=== PATIENT | female | born 1945 | race Caucasian/White ===

== ENCOUNTER 2020-03-09 05:04 | Observation (INO) ==
--- NOTE | 2020-02-08 15:59 | PAT Medication Instructions ---
Medication Instructions Date of Service February 08, 2020 Home Medications Metamucil 1 tbsp PO QAM Sooth Eye Drops 1 dose OPHTHALMIC (EYE) BID acetaminophen [Tylenol Extra Strength] 500 mg PO Q6H PRN duloxetine 30 mg PO QAM levothyroxine [Synthroid] 50 mcg PO QAM metoprolol tartrate 12.5 mg PO BID pantoprazole 40 mg PO QAM sodium chloride [Selina 128] 0.25 inch OPHTHALMIC (EYE) HS atorvastatin 10 mg PO QAM chlorthalidone 25 mg PO QAM fluoxetine 10 mg PO QAM valsartan 80 mg PO QAM DO NOT take the morning of surgery Metamucil 1 tbsp PO QAM chlorthalidone 25 mg PO QAM valsartan 80 mg PO QAM Take morning of surgery With a small sip of water, OTHERWISE NOTHING TO EAT OR DRINK AFTER MIDNIGHT: Sooth Eye Drops 1 dose OPHTHALMIC (EYE) BID acetaminophen [Tylenol Extra Strength] 500 mg PO Q6H PRN (okay to take up to 4 hours prior to surgery if needed) duloxetine 30 mg PO QAM levothyroxine [Synthroid] 50 mcg PO QAM metoprolol tartrate 12.5 mg PO BID pantoprazole 40 mg PO QAM atorvastatin 10 mg PO QAM fluoxetine 10 mg PO QAM Take evening before surgery Sooth Eye Drops 1 dose OPHTHALMIC (EYE) BID acetaminophen [Tylenol Extra Strength] 500 mg PO Q6H PRN (if needed) metoprolol tartrate 12.5 mg PO BID sodium chloride [Selina 128] 0.25 inch OPHTHALMIC (EYE) HS Other Notes If you have any questions please call us at [phone] or [phone] or [phone] or [phone]
--- NOTE | 2020-02-09 10:57 | Anesthesiology Consultation ---
Date of Service February 09, 2020 Assessment & Plan (1) Encounter for pre-operative examination: COVID Status: As of 02/07 assessment, patient denies travel to endemic area, known exposure/sick contacts, or symptoms of COVID19. Patient instructed that they and their household members must follow strict social distancing guidelines, wear a mask in public and avoid travel for 14 days prior to surgery. Preoperative COVID19 testing to be completed prior to surgery per surgeon's a rrangements. Patient made aware to self-isolate as much as possible between COVID testing and surgery. She has been tested for COVID-19 preoperatively for her recent cataract surgery and was also tested this morning, 02/08 for her upcoming cataract to be done at [facility] on 02/13. PATIENT REPORTS H/O LARYNGEAL EDEMA POST OP -- INITIALLY IN 1970s AFTER CHOLECYSTECTOMY, BUT SHE REPORTS A FEW "MINOR" EPISODES WITH OTHER SURGERIES, STATING SHE WAS GIVEN 'VISTARIL AND SOMETHING ELSE.' Per patient, also e xperienced episodes of SOB when working with PT after lumbar fusion in 04/2018, but does not describe throat swelling, and records from that hospitalization do not indicate there were any issues with her airway. Per anesthesia consult prior to that surgery from Marleen White PA-C, "Inguinofemoral lymphadenectomy= 04/26/17= LMA 4, attempts x 1, atraumatic; no anesthetic complications noted (done at [facility]; anesthesia records added to chart)." S/P L3-L5 DECOMP/FUSION 04/30/18 -- MAC 3, ETT 7.0, GV I-II. Chart Review Chart Review: Acceptable Risk for Surgery (pending surgeon ordered PCP and cardio clearances) and Patient seen in Pre Admission Testing Teaching & Discussion Instructed NPO after midnight before surgery, except medications with 15 cc of water. Medication instructions provided according to the PAT guidelines. History Surgery Operation Date: 03/09/20 14:30 Proposed Procedures p Left Total Knee Arthroplasty - Ridge Lewis MD Height/Weight Height: 5 ft 5 in Weight: 83.7 kg Allergies Allergy/AdvReac Type Severity Reaction Status Date / Time clemastine [From Tavist] Allergy Rash Verified 02/04/20 08:30 piroxicam [From Feldene] Allergy Rash Verified 02/04/20 08:30 pseudoephedrine [From Tavist] Allergy Rash Verified 02/04/20 08:30 Medications Home Medications Medication Instructions Recorded Confirmed Last Taken Metamucil 1 tbsp PO QAM 04/14/18 02/04/20 01/31/20 Sooth Eye Drops 1 dose OPHTHALMIC (EYE) BID 04/14/18 02/04/20 01/31/20 acetaminophen [Tylenol Extra 500 mg PO Q6H PRN 04/14/18 02/04/20 01/31/20 Strength] duloxetine 30 mg PO QAM 04/14/18 02/04/20 01/31/20 levothyroxine [Synthroid] 50 mcg PO QAM 04/14/18 02/04/20 02/01/20 07:00 metoprolol tartrate 12.5 mg PO BID 04/14/18 02/04/20 02/01/20 07:00 pantoprazole 40 mg PO QAM 04/14/18 02/04/20 01/31/20 sodium chloride [Selina 128] 0.25 inch OPHTHALMIC (EYE) HS 04/14/18 02/04/20 01/31/20 atorvastatin 10 mg PO QAM 04/30/18 02/04/20 01/31/20 chlorthalidone 25 mg PO QAM 01/25/20 02/04/20 01/31/20 fluoxetine 10 mg PO QAM 01/25/20 02/04/20 01/31/20 valsartan 80 mg PO QAM 01/25/20 02/04/20 02/01/20 07:00 Past Medical History Medical History (Updated 02/09/20 @ 16:20 by Jak Turner) CAD (coronary artery disease) Per [facility] cardiology 2018, "Possible coronary artery disease: There was a subtle small RCA regional wall motion abnormality on her echo. Because of this we have made the joint decision to add low-dose atorvastatin to her medical regimen." Cardiomyopathy 2/2 chemotherapy, resolved, EF normal on 2018 echo. 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 with 1 FOS) Past Family History Family History Father Stroke Hypertension Mother Diabetes Stroke Congestive heart failure Past Surgical History Surgical History (Updated 02/04/20 @ 09:06 by Brittany Laughlin, RN) Fusion of spine L2-4 H/O repair of right rotator cuff History of appendectomy History of bladder surgery A AND P REPAIR History of carpal tunnel release of both wrists History of cataract surgery 01/2020 AND SECOND EYE 02/15/2020-[facility] History of cholecystectomy History of colonoscopy with polypectomy History of esophagogastroduodenoscopy (EGD) History of ovarian cystectomy History of total abdominal hysterectomy and bilateral salpingo-oophorectomy History of vascular access device SUBSEQUENT REMOVAL Laryngeal edema X 6-8/ LAST ONE WITH FUSION 2017 [facility] PER PT AND SLOW TO WAKE UP Past Anesthesia History No Family Hx of Anesthesia Complications and Other PATIENT REPORTS H/O LARYNGEAL EDEMA POST OP -- INITIALLY IN 1970s AFTER CHOLECYSTECTOMY, BUT SHE REPORTS A FEW "MINOR" EPISODES WITH OTHER SURGERIES. Per patient, also experienced episodes of SOB when working with PT after lumbar fusion in 04/2018, but does not describe throat swelling, and records from that hospitalization do not indicate there were any issues with her airway. Per anesthesia consult prior to that surgery from Marleen White PA-C, "Inguino femoral lymphadenectomy= 04/26/17= LMA 4, attempts x 1, atraumatic; no anesthetic complications noted (done at [facility]; anesthesia records added to chart)." History of PONV No Hx of PONV and No Hx of Motion Sickness Social History Smoking Status: Never smoker Do You Dip or Chew Tobacco: No Hx Alcohol Use: No Hx Substance Use: No substance use type: does not use Review of Systems Pt denies any recent chest pain, shortness of breath, cough, fever, URI, or uncontrolled acid reflux. +palpitations at night/racing heart sensation Physical Exam Vital Signs BP: 133/85bpm P: 66bpm SPO2: 100% RA T: 98.4 F R: 16 ENMT Mouth: + dental restorations (many crowns); no chipped teeth and no loose teeth Thyromental Distance: > or= 3.5 Finger Breadths (3.5) Mallampati Class: II Neck normal visual inspection; neck extension not limited Respiratory normal respiratory effort Auscultation: lungs clear to auscultation bilaterally Cardiovascular Rate/Rhythm: regular rate and regular rhythm Heart Sounds: no murmur Extremities: no edema Testing Laboratory Results 02/09/20 11:10 02/09/20 11:10 PT 10.0 Seconds (9.0-12.0) 02/09/20 11:10 INR 0.9 (0.9-1.1) 02/09/20 11:10 APTT 27.1 Seconds (21.0-31.0) 02/09/20 11:10 Hemoglobin A1c 6.1 % (4.5-5.6) H 02/09/20 11:10 Urine Color Yellow 02/09/20 11:10 Urine Appearance Clear (Clear) 02/09/20 11:10 Urine pH 7.0 (4.5-7.5) 02/09/20 11:10 Ur Specific Robinson 1.009 (1.000-1.030) 02/09/20 11:10 Urine Protein Negative (Negative) 02/09/20 11:10 Urine Glucose (UA) Negative (Negative) 02/09/20 11:10 Urine Ketones Negative (Negative) 02/09/20 11:10 Urine Nitrite Negative (Negative) 02/09/20 11:10 Ur Leukocyte Esterase Negative (Negative) 02/09/20 11:10 Blood Type O Positive 02/09/20 11:10 Antibody Screen NEGATIVE 02/09/20 11:10 GFR consistent with known CKD stage III. Electrocardiogram Date: 02/09/20 Findings: + NSR @ (64bpm) and + no change from (2018) Chest X-Ray Date: 02/09/20 Findings: + NAD Echocardiogram Date: 10/10/17 EF: 60-64% Borderline concentric LVH. LV diastolic function is normal. Nondilated cardiac chambers. RV systolic function is normal. PA SP is 26 mmHg. No significant valvular disease present. Stress Test Date: 12/22/18 Resting EF: 62% The dobutamine stress echocardiographic examination is normal without resting LV wall motion abnormalities or inducible ischemia. Adequate dobutamine stress test is 96% of the age-predicted maximal target heart rate was obtained. No significant arrhythmias, normal heart rate with hypertension response to dobutamine infusion. Resting echo: EF 62%. Borderline concentric LVH. Grade 1 diastolic dysfunction. Nondilated cardiac chambers. Mild tricuspid regurgitation is present.
--- NOTE | 2020-02-09 11:58 | XRay Report ---
XR chest Pre-admission PA/Lat CLINICAL HISTORY: Preoperative evaluation. COMPARISON STUDY: No previous studies for comparison. FINDINGS: Lung volumes are normal. Lungs are clear. There is no pneumothorax or pleural effusion. Car diac size is normal. Mediastinal contours are normal. There is no evidence for pulmonary edema. Incid ental note is made of cholecystectomy clips. IMPRESSION: No acute cardiopulmonary findings. ACT 112: Negative or not required by law. Electronically signed by: Owen Henry M.D. 02/09/2020 11:57 AM
[2020-02-09 12:09] LABS: Basophils # (auto) 0.03 K/uL (0-0.2); Basophils % (auto) 0.6 %; Eosinophils # (auto) 0.11 K/uL (0-0.5); Hematocrit (blood only) 41.1 % (37-47); Hemoglobin 13.1 g/dL (12.0-16.0); Lymphocytes # (auto) 1.01 K/uL (1.2-3.4); Lymphocytes % (auto) 18.6 %; Mean Corpuscular Hemoglobin 30.9 pg (25-34); Mean Corpuscular Hgb Conc 31.9 g/dL (32-36); Mean Corpuscular Volume 96.9 fL (80-100); Mean Platelet Volume 10.8 fL (7.4-10.4); Monocytes # (auto) 0.55 K/uL (0.11-0.59); Monocytes % (auto) 10.1 %; Neutrophils # (auto) 3.72 K/uL (1.4-6.5); Neutrophils % (auto) 68.7 %; Platelet Count 209 K/uL (130-400); RDW Coefficient of Variation 13.3 % (11.5-14.5); Red Blood Count 4.24 M/uL (4.2-5.4); White Blood Count 5.42 K/uL (4.8-10.8)
[2020-02-09 12:10] LABS: Appearance Urine Clear (Clear); Bilirubin Urine Negative (Negative); Blood Urine Negative (Negative); Color Urine Yellow; Glucose Urine UA Negative (Negative); Ketones Urine Negative (Negative); Leukocyte Esterase Urine Negative (Negative); Nitrite Urine Negative (Negative); Protein Urine Negative (Negative); Specific Gravity Urine 1.009 (1.000-1.030); Urobilinogen Urine Negative (Negative)
[2020-02-09 12:20] LABS: Albumin Level 3.7 gm/dl (3.4-5.0); BUN Creatinine Ratio 14.2 (10-20); Calcium 9.8 mg/dl (8.5-10.1); Creatinine Clr Calc Pharmacy 33.6 ml/min; Est GFR (African American) 37.3; Est GFR (Non-African American) 32.1
[2020-02-09 12:24] LABS: INR 0.9 (0.9-1.1); Partial Thromboplastin Time 27.1 Seconds (21.0-31.0)
[2020-02-09 12:57] LABS: Estimated Average Glucose 128 mg/dl; Hemoglobin A1C 6.1 % (4.5-5.6)
--- NOTE | 2020-02-10 06:01 | Electrocardiogram Report ---
Test Reason : Blood Pressure : / mmHG Vent. Rate : 064 BPM Atrial Rate : 064 BPM P-R Int : 144 ms QRS Dur : 084 ms QT Int : 406 ms P-R-T Axes : 023 027 027 degrees QTc Int : 418 ms Normal sinus rhythm Normal ECG When compared with ECG of 15-APR-2018 16:24, No significant change was found Confirmed by Carl Quiroz ([id number]) on 02/10/2020 6:00:55 AM Referred By: Ridge Lewis Confirmed By:Carl Quiroz
--- NOTE | 2020-03-08 20:43 | History and Physical Report ---
DATE OF ADMISSION: 03/09/2020 CHIEF COMPLAINT: Left knee pain and instability. HISTORY OF PRESENT ILLNESS: This is a 74-year-old female patient of Dr. Lewis'mary complaining of chronic left knee pain and instability, longstanding, now progressively getting worse. The patient has failed conservative treatment including intra-articular injections, topical steroid treatment and the use of a knee wrap. The patient has increased pain with weightbearing activities and her pain does interfere with her activities of daily living. The patient has been diagnosed with end-stage osteoarthritis per clinical and radiographic exams and the patient wished to proceed with a left total knee arthroplasty. PAST MEDICAL HISTORY: Hypertension, anxiety and depression, peripheral neuropathy in her feet, hypothyroidism, osteoarthritis, spine problems, sciatica, acid reflux, obesity and a history of large B cell lymphoma. SOCIAL HISTORY: Nonsmoker and nondrinker. PAST SURGICAL HISTORY: Tonsil surgery, appendix, right rotator cuff, left plantar fascia release, bilateral carpal tunnel, bilateral cataract surgeries, gallbladder surgery and hysterectomy. FAMILY HISTORY: Noncontributory. REVIEW OF SYSTEMS: Chronic left knee pain and instability. Otherwise, denies any shortness of breath, chest pain, nausea, vomiting or any other joint complaints. MEDICATIONS: 1. Protonix 40 mg daily. 2. Selina 128/5% eye drops daily. 3. Metamucil as needed. 4. Duloxetine 60 mg daily. 5. Atorvastatin 10 mg daily. 6. Metoprolol 25 mg 1/2 tablet twice daily. 7. Chlorthalidone 25 mg daily. 8. Valsartan 80 mg daily. 9. Levothyroxine daily. ALLERGIES: INCLUDE tavist D, FELDENE, AND ALSO ADHESIVE TAPES. PHYSICAL EXAMINATION: GENERAL: Well-developed, well-nourished 74-year-old female in no acute distress. She is alert and oriented x3 and pleasant. HEENT: Normocephalic, atraumatic. Extraocular motions are intact. Pupils are equal and reactive to light. HEART: Regular rate and rhythm, no murmurs. LUNGS: Clear. ABDOMEN: Soft, nontender, bowel sounds present. EXTREMITIES: Left knee range of motion 0-125. She has 4/5 strength, valgus deformity with lateral joint line tenderness. She has a mild effusion with crepitation. Neurologically and neurovascularly intact in her left lower extremity. DIAGNOSES: Left knee end-stage osteoarthritis, hypertension, anxiety, peripheral neuropathy, hypothyroidism, osteoarthritis, spine problems, sciatica, acid reflux, obesity, history of large B cell lymphoma. PLAN: The patient was advised of her diagnosis. Indications, risks, benefits, postop course have all been reviewed. The patient wished to proceed with left total knee arthroplasty. Necessary consent forms, preoperative testing and clearances will be obtained. HOWARD
[2020-03-09] MEDS ORDERED: ceFAZolin 2000MG 2,000 MG/15 ML SYR IV SCH (06:00)
[2020-03-09] MEDS ORDERED: CeleBREX 200 MG CAP PO SCH (06:00)
[2020-03-09] MEDS ORDERED: TRANEXAMIC ACID 1,000 MG **IV Intra-op IV SCH (06:00)
[2020-03-09] MEDS ORDERED: VANCOMYCIN HCL 1,250 MG in SODIUM CHLORIDE 0.9% 250 ML IV SCH ×2 (06:00→18:00)
[2020-03-09] MEDS ORDERED: METOCLOPRAMIDE HCL 10 MG TABLET PO SCH (06:00)
[2020-03-09] MEDS ORDERED: dexAMETHasone 4 MG TAB PO SCH (06:00)
[2020-03-09] MEDS ORDERED: ACETAMINOPHEN 500 MG TAB PO SCH (06:00)
[2020-03-09] MEDS ORDERED: TRANEXAMIC ACID 1,000 MG **IV Pre-op IV SCH (06:00)
[2020-03-09] MEDS ORDERED: ROPIVACAINE 0.5% HCL/PF 150 MG, BUPIVACAINE 0.5% MPF 30 ML, EPINEPHrine 30MG/30ML (OR U... INSTIL SCH (06:00)
[2020-03-09] MEDS ORDERED: FAMOTIDINE 20 MG TAB PO SCH (06:00)
[2020-03-09] MEDS ORDERED: GABAPENTIN 300 MG CAP PO SCH (06:00)
[2020-03-09] MEDS ORDERED: LR 500ML BOLUS, THEN 15ML/HR IV SCH (06:00)
[2020-03-09] MEDS ORDERED: MIDAZOLAM HCL 1 MG/ML 2ML VIAL ONE (06:24)
[2020-03-09] MEDS ORDERED: fentaNYL citrate 100 MCG/2 ML VIAL ONE (06:24)
[2020-03-09] MEDS ORDERED: ROPIVACAINE 0.5% 5 MG/ML 30 ML VIAL ONE (06:26)
[2020-03-09] MEDS ORDERED: BUPIVACAINE 0.5 % 5 MG/1 ML PF 10ML VIAL ONE (06:26)
[2020-03-09] MEDS ORDERED: BACITRACIN INJ 50,000 UNIT VIAL ONE (06:43)
[2020-03-09] MEDS ORDERED: ORTHO JOINT ANESTHETIC ONE (06:43)
[2020-03-09] MEDS ORDERED: ONDANSETRON INJ 2 MG/ML 2 ML VIAL IV PRN ×2 (06:54→10:57)
[2020-03-09] MEDS ORDERED: ePHEDrine sulfate 50 MG/ML AMP IV PRN (06:54)
[2020-03-09] MEDS ORDERED: ATROPINE SULFATE 0.1 MG/ML 10ML SYR IV PRN (06:54)
[2020-03-09] MEDS ORDERED: HYDROmorphone INJ 2 MG/ML SYR/VIAL IV PRN (06:54)
--- NOTE | 2020-03-09 07:01 | History & Physical Bridge Note ---
Date of Service March 09, 2020 History & Physical Bridge Note I have examined the patient, reviewed the History & Physical and in the interval since the performance of the History & Physical I have noted the following changes of clinical significance: no changes noted
[2020-03-09] MEDS ORDERED: PROPOFOL IV EMULSION 10 MG/ML 20 ML VIAL IV ONE (07:29)
--- NOTE | 2020-03-09 09:18 | Post Operative Brief Note ---
Immediate Post Op Note v1 Date of Surgery March 09, 2020 Pre & Post Diagnosis Operation Date: 03/09/20 07:00 Pre-Op Diagnosis: Unilateral Primary Osteoarthritis, Left Knee Post-Op Diagnosis: Unilateral Primary Osteoarthritis, Left Knee I identified the patient and participated in the time-out.: Yes Procedure Operation Date: 03/09/20 07:00 Actual Procedures p Left Total Knee Arthroplasty(Left) - Ridge Lewis MD Surgeon Ridge Lewis MD Fleet Manager MARIA INES Powers Estimated Blood Loss 5 Findings Consistent with Post-Op Diagnosis Specimens Bone cuts Drains Hemovac Drain Anesthesia Type MAC Spinal Regional Complications none Disposition Accompanied Patient To Recovery: No Disposition: Recovery Room Overlapping Procedure I was immediately available: during the entire case.
--- NOTE | 2020-03-09 09:30 | Operative Report ---
Post Operative Report Pre & Post Diagnosis Operation Date: 03/09/20 07:00 Pre-Op Diagnosis: Unilateral Primary Osteoarthritis, Left Knee Post-Op Diagnosis: Unilateral Primary Osteoarthritis, Left Knee I identified the patient and participated in the time-out.: Yes Procedure Operation Date: 03/09/20 07:00 Actual Procedures p Left Total Knee Arthroplasty(Left) - Ridge Lewis MD Surgeon Ridge Lewis MD Water Reclamation Systems Operator MARIA INES Powers Estimated Blood Loss 5 Findings Consistent with Post-Op Diagnosis Specimens Bone cuts Drains 2 Hemovac Anesthesia Type MAC Spinal Regional Complications none Disposition Accompanied Patient To Recovery: No Disposition: Recovery Room Indications 74 female progressive osteoarthritis left knee failed conservative management. Radiographs demonstrate that she is [id number] lateral compartment on flexion views. Description of Procedure Patient was taken to the operating room placed supine on the operating table and anesthetized under spinal MAC regional anesthesia. Exam under anesthesia demonstrated some knee hyperextension and full flexion valgus knee. A pneumatic tourniquet was placed about the moderately obese thigh of the left lower extremity. The left lower extremity was prepped and draped in usual fashion. The leg was elevated exsanguinated with an Esmarch bandage and the pneumatic was raised to 325 mm mercury. An anterior incision was made across the left knee. The skin was incised longitudinally subcutaneous flaps were elevated and an incision was made through the medial retinaculum extending up into the mid third of the quadriceps tendon and extended down to the medial tibial tubercle. Intra-articular findings demonstrated patellofemoral and lateral compartment osteoarthritis grade III chondromalacia patella and grade III and IV chondromalacia lateral femoral condyle and grade III chondromalacia tibial plateau with grade 4 the posteriorior most aspect of the surface of the tibia. The knee was exposed by excising the infrapatellar fat pad, excising the meniscal remnants and anterior cruciate ligament. Any inflamed synovial tissue was resected. The fat pad over the anterior femur was resected for placement of the component in that area. The lateral synovial bands were release. The femur was exposed. The custom femoral cutting block was pinned in position. The distal femoral cutting block was applied. The distal femoral cut was made with the oscillating saw. The size 9, 4-in-1 cutting block was placed. It was noted that she had some AP ML mismatch and size of femur. The anterior and posterior chamfer cuts were made. The knee was extended and a subperiosteal peel lateral release was performed around the patella. The patella width was measured and width was reproduced using freehand cut technique. The 32 x 8.5 millimeter symmetrical patella was used. 3 drill holes are made for the pegs. The tibia was exposed. A custom tibial cutting block was positioned and drill holes were made for the cutting guide. Cutting guide was placed I added +2 resection to the guide cut and the proximal cut was made with the oscillating saw. All osteophytes were resected. The lamina ground equipment mechanic was used to assess ligamentous balance and the ligaments were balanced in extension and flexion. The tibia was reexposed and measured for a size D tibial component. This was externally rotated in line with the tibial tubercle and the fixation pins were drilled. The proximal tibia was fashioned with the drill and punch. The size 9 femoral trial was inserted. The trial MC inserts were used. The knee was too tight in extension with flexion contracture with the smallest implant being the 10. Patient was also tight in flexion. Had to revised the distal femoral cut and chamfer cuts with +2 resection and another +2 resection more off the tibial side to achieve ligamentous balance and full extension and flexion of the knee with range of motion. The 10 mm insert gave balanced ligaments through full range of motion. The patella tracked laterally so I did a lateral release extrasynovial leaving the synovium intact and this corrected the patella tracking to central through full range of motion.. the trials were removed. The orthomix anesthetic cocktail was injected per protocol. The knee was then copiously irrigated with pulsatile lavage antibiotic solution with bacitracin. The final components were cemented with Simplex cement. The final components were persona [employer] 9 CR narrow left femoral component, D tibia, 10 MC polyethylene, 32 x 8.5 symmetrical patella. After the cement cured with the knee in full extension the Betadine soak was used per protocol. The knee joint was copiously irrigated with antibiotic solution with bacitracin. 2 drains were brought out laterally and connected to a Hemovac. The quadriceps tendon and medial retinaculum were closed with interrupted [id number] #1 Vicryl sutures. The knee was taken through a full range of motion and repair was secure. Range of motion knee was full extension and flexion to 145 degrees. The subcutaneous tissues were closed with 2-0 Vicryl sutures and skin was closed with freya. Sterile dressings were applied and the patient tolerated the procedure well. Preston SPANN my physician optometric assistant, assisted in soft tissue retraction instrument management leg positioning the closure and will participate in the postoperative care of the patient. I attest to the content of the Intraoperative Record and any orders documented therein. Any exceptions are noted below.
--- NOTE | 2020-03-09 10:03 | Anesthesiology Progress Note ---
Date of Service March 09, 2020 Anesthesia Post Procedure Vital Signs Vital Signs: Temp Pulse Pulse Resp BP Pulse Ox 03/09/20 09:45 62 18 152/64 H 97 03/09/20 09:35 65 19 150/64 H 100 03/09/20 09:26 36.8 C 68 24 153/62 H 100 03/09/20 06:15 36.7 C 78 20 163/86 H 96 03/09/20 05:15 36.7 C 78 20 163/86 H 96 Transfer of Care Handoff Completed per policy Notes Mental Status: alert / awake / arousable Patient Amnestic to Procedure: Yes Nausea / Vomiting: adequately controlled Pain: adequately controlled Airway Patency, RR, SpO2: stable & adequate BP & HR: stable & adequate Hydration State: stable & adequate Neuraxial Anesthesia: was administered and sensory block is resolving Anesthetic Complications: no major complications apparent
--- NOTE | 2020-03-09 10:07 | XRay Report ---
XR knee LT 1 or 2V routine CLINICAL HISTORY: Postoperative evaluation. COMPARISON: None FINDINGS: Alignment of the total left knee arthroplasty is anatomic. There is no periprosthetic frac ture or unexpected radiopaque foreign body. There are drains and skin freya. IMPRESSION: Expected findings following total left knee arthroplasty. ACT 112: Negative or not required by law. Electronically signed by: Owen Henry M.D. 03/09/2020 10:06 AM
[2020-03-09] MEDS ORDERED: HYDROmorphone INJ 0.5 MG/0.5 ML SYR IV PRN (10:57)
[2020-03-09] MEDS ORDERED: bisacodyL 10 MG SUPP PR PRN (10:57)
[2020-03-09] MEDS ORDERED: NALOXONE HCL 0.4 MG/1 ML VIAL/CARP IV PRN (10:57)
[2020-03-09] MEDS ORDERED: diphenhydrAMINE Capsule 25 MG CAP PO PRN (10:57)
[2020-03-09] MEDS ORDERED: MAGNESIUM HYDROXIDE SUSP 30 ML UDC PO PRN (10:57)
[2020-03-09] MEDS ORDERED: VANCOMYCIN CONSULT ACTIVE PRN (10:57)
--- NOTE | 2020-03-09 11:38 | Consultation ---
Date of Consultation March 09, 2020 Assessment & Plan (1) Status post total knee replacement, left: S/P L TKA POD #0 Dr. Lewis EBL: 5ml Hemovac in place tolerated procedure well pain/wound management per ortho activity and therapy as directed by ortho encourage incentive spirometry q1hwa monitor h/h (2) Hypertension: BP stable 144/68, took metoprolol this morning continue metoprolol, valsartan - can resume valsartan today if BP remains elevated hold chlorthalidone until volume status and BP reassessed in a.m. 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 Cedeno upon discharge Pt was seen and examined in collaboration with Dr. Cool, please see addendum Starting 03/10/20 pt will be under the care of Dr. Mccrary Thank you for this consultation. We will follow the patient with you during their hospital stay. You can reach a member of the [facility] Team 03/12 via pager @ [phone]. Supervising Physician Co-Signing Physician Notes Attending addendum; The patient was seen and examined in medical floor She is a status post left TKA To have some pain in the left knee and numbness tingling involving the both lower extremities Denies any chest pain and/or palpitation, any abdominal pain, nausea and/or vomiting, any headache and/or blurred vision On examination Lying in bed comfortably Hemodynamically stable Chest-clear to auscultate bilaterally Heart-S1-S2, regular Abdomen-benign, bowel sounds present Extremities-trace edema bilaterally in the left lower extremity,knee and below the knee are bandaged RO[employer]-alert awake and oriented x3 Her labs, preop evaluation, EKG and imaging studies reviewed Remains medically stable following left TKA with significant medical condition as mentioned in consultation Agree with assessment plan as outlined above by Barbara Cool History of Present Illness Requesting Physician: Dr. 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 Lewis. We have been consulted for medical management. Postoperatively she feels well and denies any pain. She denies fever, chills, sweats, lightheadedness, dizziness, chest pain, shortness of breath, nausea, vomiting, abdominal pain. Prior to procedure she denies any difficulty urinating or moving bowels. Typically she has a BM every other day. She does have urinary urgency which is normal for her. In regards to her diffuse B-cell lymphoma she did undergo 2 rounds of chemotherapy and has since been in remission. She does have history of hypertension controlled with metoprolol, valsartan and chlorthalidone. She does have history of depression and currently mood stable on duloxetine and fluoxetine. Allergies Allergy/AdvReac Type Severity Reaction Status Date / Time clemastine [From Tavist] Allergy Mild Rash Verified 03/09/20 05:32 piroxicam [From Feldene] Allergy Mild Rash Verified 03/09/20 05:32 pseudoephedrine [From Tavist] Allergy Mild Rash Verified 03/09/20 05:32 Home Medications Home Medications Medication Instructions Recorded Confirmed Type Metamucil 1 tbsp PO QAM 04/14/18 03/09/20 History Sooth Eye Drops 1 dose OPHTHALMIC (EYE) BID 04/14/18 03/09/20 History acetaminophen [Tylenol Extra 500 mg PO Q6H PRN 04/14/18 03/09/20 History Strength] levothyroxine [Synthroid] 50 mcg PO QAM 04/14/18 02/15/20 History metoprolol tartrate 12.5 mg PO BID 04/14/18 03/09/20 History pantoprazole 40 mg PO QAM 04/14/18 03/09/20 History sodium chloride [Selina 128] 0.25 inch OPHTHALMIC (EYE) HS 04/14/18 03/09/20 History atorvastatin 10 mg PO QAM 04/30/18 03/09/20 History chlorthalidone 25 mg PO QAM 01/25/20 03/09/20 History fluoxetine 10 mg PO QAM 01/25/20 03/09/20 History valsartan 80 mg PO QAM 01/25/20 03/09/20 History cholecalciferol (vitamin D3) 25 mcg PO DAILY 02/15/20 03/09/20 History [Vitamin D3] vitamin R21-[id number] acid 1 tab PO DAILY 02/15/20 03/09/20 History duloxetine 60 mg PO DAILY 03/09/20 03/09/20 History Patient History Medical History (Updated 03/09/20 @ 11:49 by Barbara Chambers PA-C) CAD (coronary artery disease) Per [facility] cardiology 2018, "Possible coronary artery disease: There was a subtle small RCA regional wall motion abnormality on her echo. Because of this we have made the joint decision to add low-dose atorvastatin to her med ical regimen." Cardiomyopathy 2/2 chemotherapy, resolved, EF normal on 2018 echo. 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 Last chemo in August 2017 GERD (gastroesophageal reflux disease) History of MRSA infection Hyperlipidemia Hypertension Hypothyroidism Neurogenic claudication due to lumbar spinal stenosis s/p L2-L4 fusion, 04/2018 Surgical History (Updated 03/09/20 @ 11:34 by Barbara Chambers PA-C) Fusion of spine L2-4 H/O repair of right rotator cuff History of appendectomy History of bladder surgery A AND P REPAIR History of carpal tunnel release of both wrists History of cataract surgery 01/2020 AND SECOND EYE 02/15/2020-[facility] History of cholecystectomy History of colonoscopy with polypectomy History of esophagogastroduodenoscopy (EGD) History of ovarian cystectomy History of total abdominal hysterectomy and bilateral salpingo-oophorectomy History of vascular access device SUBSEQUENT REMOVAL Laryngeal edema X 6-8/ LAST ONE WITH FUSION 2018 [facility] PER PT AND SLOW TO WAKE UP Family History Father Stroke Hypertension Mother Diabetes Stroke Congestive heart failure Social History Smoking Status: Never smoker Second Hand Exposure: No; Do You Dip or Chew Tobacco: No; Hx Alcohol Use: No Hx Substance Use: No Preferred Language: Qatari Communication Ability: Effective [place] Required: No Beliefs That Will Affect Care: None marital status: Current Living Situation: Spouse current occupational status: retired Other Information That Helps Us Care for You: No Feels Safe at Home: Yes Safety Concerns: Feels Safe At This Time Assistive Devices: Walker Review of Systems Review of Systems: All systems reviewed & are unremarkable except as noted in HPI & below Physical Exam Physical Exam: Constitutional: WD/WN, vitals as above, NAD, sitting up in bed, pleasant, conversing easily Head: Normocephalic, Atraumatic Eyes: PERRL, conjunctivae normal, anicteric sclerae ENMT: external ear and nose normal, oropharynx normal Neck: trachea midline, no thyromegaly normal visual inspection Respiratory: normal respiratory effort, lungs clear to auscultation, no wheeze, rales, rhonchi. Normal insp/exp effort, no accessory muscle use Cardiovascular: RRR, no murmur, no edema Vessels: no JVD or carotid bruit Chest: normal inspection of chest Abdomen: normal bowel sounds, soft, nontender, no hepatosplenomegaly Musculoskeletal: no cyanosis or clubbing, left lower extremity TKA dressing CDI, ice pack in place, Hemovac with serosanguineous drainage,NVI distally, active range of motion x4 to extremities Skin: no rashes, warm and dry normal turgor Neurologic: PERRL, EOMI, accommodation nl, no face palsy, no dysarthria CN's II-XI intact bilaterally and moves all extremities Psychiatric: A+Ox3, euthymic affect Lymphatic: no cervical or axillary lymphadenopathy : deferred Results & Data ([facility]) Vital Signs (Past 12 Hours) Vital Signs Temp Pulse Pulse Pulse Resp BP Pulse Ox 03/09/20 11:10 36.4 C L 64 16 144/68 H 97 03/09/20 10:25 36.6 C 66 16 145/81 H 96 03/09/20 10:15 59 L 13 159/65 H 96 03/09/20 10:05 62 14 154/63 H 96 03/09/20 09:55 36.8 C 61 14 146/60 H 100 03/09/20 09:45 62 18 152/64 H 97 03/09/20 09:35 65 19 150/64 H 100 03/09/20 09:26 36.8 C 68 24 153/62 H 100 03/09/20 06:15 36.7 C 78 20 163/86 H 96 03/09/20 05:15 36.7 C 78 20 163/86 H 96 Laboratory Results Preop labs 02/09/2020 H&H 13.1 and 41.1, WBC 5.42k,, BUN 22, creatinine 1.57, A1c 6.1 Diagnostic Findings Knee Xray: IMPRESSION: Expected findings following total left knee arthroplasty. CXR: FINDINGS: Lung volumes are normal. Lungs are clear. There is no pneumothorax or pleural effusion. Cardiac size is normal. Mediastinal contours are normal. There is no evidence for pulmonary edema. Incidental note is made of cholecystectomy clips. IMPRESSION: No acute cardiopulmonary findings. Medications Administered Discontinued Medications Bacitracin (Bacitracin Inj 50,000 Unit Vial) Confirm Administered Dose 50,000 units .ROUTE .STK-MED ONE Stop: 03/09/20 06:44 Last Admin: 03/09/20 09:03 Dose: 50,000 units Documented by: [id number] Lactated Ringer's (Lr) 1,000 mls @ 15 mls/hr IV .Q24H [facility] Stop: 03/09/20 18:00 Last Infusion: 03/09/20 07:12 Dose: 0 mls/hr Documented by: [id number] Admin: 03/09/20 05:41 Dose: 15 mls/hr Documented by: [id number] Cefazolin Sodium (Ancef 2000mg) 2,000 mg in 15 mls @ 3.75 mls/min IV PREOP [facility]; Protocol Stop: 03/09/20 18:00 Last Admin: 03/09/20 07:12 Dose: 3.75 mls/min Documented by: [id number] Ropivacaine 150 mg/Bupivacaine HCl 30 ml/Epinephrine HCl 0.15 mg/Ketorolac Tromethamine 30 mg/Dexamethasone 4 mg/ Ketamine HCl 10 mg/ Clonidine HCl 100 mcg/ Sodium Chloride 93.35 mls @ 0 mls/hr INSTIL PREOP [facility] Stop: 03/09/20 06:01 Last Admin: 03/09/20 09:03 Dose: 93.35 mls/hr Documented by: [id number] Tranexamic Acid (Tranexamic Acid / 0.7% Nacl) 1,000 mg in 100 mls @ 600 mls/hr IV TODAY@0600 [facility] Stop: 03/09/20 18:00 Last Infusion: 03/09/20 07:08 Dose: 0 mls/hr Documented by: [id number] Admin: 03/09/20 06:58 Dose: 600 mls/hr Documented by: [id number] Tranexamic Acid (Tranexamic Acid / 0.7% Nacl) 1,000 mg in 100 mls @ 600 mls/hr IV TODAY@0600 [facility] Stop: 03/09/20 18:00 Last Admin: 03/09/20 08:36 Dose: 600 mls/hr Documented by: [id number] Vancomycin HCl 1,250 mg/ (Sodium Chloride) 275 mls @ 200 mls/hr IV PREOP [facility] Stop: 03/09/20 18:00 Last Admin: 03/09/20 05:41 Dose: 200 mls/hr Documented by: [id number] Miscellaneous (Ortho Joint Anesthetic ) Confirm Administered Dose 1 ea .ROUTE .STK-MED ONE Stop: 03/09/20 06:44 Last Admin: 03/09/20 09:04 Dose: Not Given Documented by: [id number] ECG Rate (beats per minute): 64 Rhythm: normal sinus
[2020-03-09] MEDS: SODIUM CHLORIDE 0.9% 1000ML 1,000 ML IV SCH ×2 (12:14→22:49)
[2020-03-09] MEDS: ACETAMINOPHEN 500 MG TAB PO SCH ×2 (13:47→21:01)
[2020-03-09] MEDS: oxyCODONE HCL IR 5 MG TAB (IMMEDIATE RELEASE) PO PRN (19:50)
[2020-03-09] MEDS ORDERED: SENNA 8.6 MG TAB PO SCH (21:00)
[2020-03-09] MEDS ORDERED: SODIUM CHLORIDE 5% (MURO) OP OINT 3.5 GM TUBE OP SCH (21:00)
[2020-03-09] MEDS: ARTIFICIAL TEARS OP SCH (21:00)
[2020-03-09] MEDS: DOCUSATE SODIUM 100 MG CAP PO SCH (21:01)
[2020-03-09] MEDS: METOPROLOL TARTRATE 25 MG TAB PO SCH (21:01)
[2020-03-09] MEDS: ASPIRIN 81 MG ECTAB PO SCH (21:01)
[2020-03-10] MEDS: oxyCODONE HCL IR 5 MG TAB (IMMEDIATE RELEASE) PO PRN ×2 (04:05→08:45)
[2020-03-10] MEDS: ACETAMINOPHEN 500 MG TAB PO SCH (05:54)
[2020-03-10] MEDS ORDERED: LEVOTHYROXINE SODIUM 50 MCG TABLET PO SCH (06:30)
[2020-03-10 07:02] LABS: Hematocrit (blood only) 33.5 % (37-47); Mean Corpuscular Hemoglobin 30.8 pg (25-34); Mean Corpuscular Hgb Conc 32.8 g/dL (32-36); Mean Corpuscular Volume 93.8 fL (80-100); Mean Platelet Volume 10.9 fL (7.4-10.4); Platelet Count 174 K/uL (130-400); RDW Coefficient of Variation 12.9 % (11.5-14.5); Red Blood Count 3.57 M/uL (4.2-5.4); White Blood Count 13.25 K/uL (4.8-10.8)
[2020-03-10 07:32] LABS: BUN Creatinine Ratio 20.7 (10-20); Calcium 7.5 mg/dl (8.5-10.1); Creatinine Clr Calc Pharmacy 30.8 ml/min; Est GFR (African American) 33.6; Potassium 3.8 mmol/L (3.5-5.1)
[2020-03-10] MEDS: ARTIFICIAL TEARS OP SCH (08:44)
[2020-03-10] MEDS: METOPROLOL TARTRATE 25 MG TAB PO SCH (08:44)
[2020-03-10] MEDS: DOCUSATE SODIUM 100 MG CAP PO SCH (08:45)
[2020-03-10] MEDS: ASPIRIN 81 MG ECTAB PO SCH (08:46)
--- NOTE | 2020-03-10 08:51 | Hospitalist Progress Note ---
Date of Service March 10, 2020 Assessment & Plan (1) Status post total knee replacement, left: S/P L TKA POD #1 Dr. Lewis EBL: 5ml Hemovac in place 185ml out tolerated procedure well pain/wound management per ortho activity and therapy as directed by ortho encourage incentive spirometry q1hwa monitor h/h - stable at 11.0/33.5 (2) Hypertension: BP stable 133/71 Continue valsartan Continue to hold chlorthalidone until repeat BMP on 03/14 (3) Pre-diabetes: a1c 6.1 encourage diet and lifestyle modifications (4) CKD (chronic kidney disease) stage 3, GFR 30-59 ml/min: baseline cr 1.2-1.5 Preop creatinine 1.57, 1.71 today She did receive preop Celebrex and vancomycin Avoid nephrotoxic agents Encourage fluid intake, repeat BMP scheduled 03/14 with follow-up with Dr. 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 Cedeno upon discharge Dispositon: pt to be d/c today per ortho; plan for follow up with PCP 03/14 and repeat bmp Pt was seen and examined in collaboration with Dr. Mccrary, please see addendum Thank you for this consultation. We will follow the patient with you during their hospital stay. You can reach a [facility]12 via pager @ [phone]. Admission and Anticipated Discharge Date Admission Date: March 09, 2020 Supervising Physician Co-Signing Physician Notes I, Dr. Lazaro Mccrary, have seen and examined the patient with physician video library assistant and would like to comment that on physical exam General: no acute distress HEENT: no facial droop, eye movements intact Heart: regular rate Lungs: clear to auscultation, no wheezing Abdomen: soft, nontender Neuro/Extremities: ambulatory with therapist Psych: answers all questions appropriately. Patient reports she feels well and denies other symptoms Assessment and plan -Patient is status post left knee surgery on 03/09/2020 and is seen to be ambulatory. Recommendations are in place for patient to follow with clinic doctors on following the creatinine levels. Patient did receive preop NSAID and vancomycin. Recommendations are also made for holding off chlorthalidone diuretic due to renal function and because patient blood pressures are acceptable in regards to management of patient's hypertension. Discharge instructions are updated by hospitalist medical team in regards to renal function monitoring and blood pressure medications -patient's blood counts are acceptable in context of surgery. orthopedic surgery can elect to discharge patient today versus further inpatient monitoring of the labs -agree with other assessment and plans as documented by physician video library assistant Subjective Patient was seen and examined in room 312-1. F/U L TKA. Feels well. Minimal pain and taking narcotics. Denies f/c/s, chest pain, sob, n/v/d. Tolerating diet. She is pushing liquids. Offers no concerns or complaints. Is to be discharged today if all goes well with PT. Review of Systems Review of Systems: All systems reviewed & are unremarkable except as noted in HPI & below Physical Exam Physical Exam: Gen: WD/WN, F, sitting up in bed, NAD, A&O x3 HEENT: Normocephalic, atraumatic, conjunctivae moist, sclerae anicteric, mucous membranes moist. Lung: Clear to Auscultation bilaterally, no wheezes/rales/rhonchi Heart: Regular rate, regular rhythm, no murmurs, rubs, or gallops Abdomen: Soft, NT, ND +BS x 4 Extremities: No edema, L knee dress CDI hemovac in place with serosang drainage Skin: Warm, no rash, negative turgor. Results & Data Results & Data ([facility]) Vital Signs (Past 12 Hours) Vital Signs Temp Pulse Resp BP BP Pulse Ox 03/10/20 07:52 36.8 C 67 15 133/71 94 03/10/20 03:59 36.7 C 67 16 108/56 L 97 03/09/20 23:50 36.4 C L 59 L 16 118/69 96 Laboratory Results Short CBC 03/10/20 Range/Units 06:31 WBC 13.25 H (4.8-10.8) K/uL Hgb 11.0 L (12.0-16.0) g/dL Hct 33.5 L (37-47) % Plt Count 174 (130-400) K/uL BMP 03/10/20 06:31 Sodium 138 Potassium 3.8 Chloride 105 Carbon Dioxide 28 BUN 35 H Creatinine 1.71 H Glucose 133 H Calcium 7.5 L Medications Administered Acetaminophen (Acetaminophen 500 Mg Tab) 1,000 mg PO Q8 [facility] Stop: 04/08/20 13:59 Last Admin: 03/10/20 05:54 Dose: 1,000 mg Documented by: [id number] Admin: 03/09/20 21:01 Dose: 1,000 mg Documented by: [id number] Admin: 03/09/20 13:47 Dose: 1,000 mg Documented by: [id number] Artificial Tears (Artificial Tears) 1 drops OP BID [facility]; Protocol Stop: 04/08/20 20:59 Last Admin: 03/10/20 08:44 Dose: 1 drops Documented by: [id number] Admin: 03/09/20 21:00 Dose: 1 drops Documented by: [id number] Aspirin (Aspirin 81 Mg Ectab) 81 mg PO BID [facility] Stop: 04/08/20 20:59 Last Admin: 03/10/20 08:46 Dose: 81 mg Documented by: [id number] Admin: 03/09/20 21:01 Dose: 81 mg Documented by: [id number] Atorvastatin Calcium (Atorvastatin 10 Mg Tab) 10 mg PO QAM [facility] Stop: 04/09/20 08:59 Last Admin: 03/10/20 08:46 Dose: 10 mg Documented by: [id number] Cyanocobalamin (Cyanocobalamin 500 Mcg Tablet (Vitamin B-12)) 500 mcg PO DAILY [facility] Stop: 04/09/20 08:59 Last Admin: 03/10/20 08:44 Dose: 500 mcg Documented by: [id number] Docusate Sodium (Docusate Sodium 100 Mg Cap) 100 mg PO BID [facility] Stop: 04/08/20 20:59 Last Admin: 03/10/20 08:45 Dose: 100 mg Documented by: [id number] Admin: 03/09/20 21:01 Dose: 100 mg Documented by: [id number] Duloxetine HCl (Duloxetine Hcl 60 Mg Cap) 60 mg PO DAILY [facility] Stop: 04/09/20 08:59 Last Admin: 03/10/20 08:44 Dose: 60 mg Documented by: [id number] Fluoxetine HCl (Fluoxetine Hcl 10 Mg Cap) 10 mg PO QAM [facility] Stop: 04/09/20 08:59 Last Admin: 03/10/20 08:45 Dose: 10 mg Documented by: [id number] Folic Acid (Folic Acid 400 Mcg Tab) 400 mcg PO DAILY [facility] Stop: 04/09/20 08:59 Last Admin: 03/10/20 08:46 Dose: 400 mcg Documented by: [id number] Levothyroxine Sodium (Levothyroxine Sodium 50 Mcg Tablet) 50 mcg PO DAILYBB [facility] Stop: 04/09/20 06:29 Last Admin: 03/10/20 05:54 Dose: 50 mcg Documented by: [id number] Metoprolol Tartrate (Metoprolol Tartrate 25 Mg Tab) 12.5 mg PO BID [facility] Stop: 04/08/20 20:59 Last Admin: 03/10/20 08:44 Dose: 12.5 mg Documented by: [id number] Admin: 03/09/20 21:01 Dose: 12.5 mg Documented by: [id number] [facility]ivitamins ([facility]ivitamin Tab) [facility] Stop: 04/09/20 08:59 Last Admin: 03/10/20 08:46 Dose: 1 tab Documented by: [id number] Oxycodone HCl (Oxycodone Hcl Ir 5 Mg Tab (Immediate Release)) 5 - 10 mg PO Q4H PRN PRN Reason: Pain or Pre PT Stop: 03/23/20 10:56 Last Admin: 03/10/20 08:45 Dose: 5 mg Documented by: [id number] Admin: 03/10/20 04:05 Dose: 5 mg Documented by: [id number] Admin: 03/09/20 19:50 Dose: 10 mg Documented by: [id number] Pantoprazole Sodium (Pantoprazole 40 Mg Tab) 40 mg PO QAM [facility] Stop: 04/09/20 08:59 Last Admin: 03/10/20 08:45 Dose: 40 mg Documented by: [id number] Psyllium Hydrophilic Mucilloid (Psyllium 58.6% Powder Packet) 1 pkt PO DAILY [facility] Stop: 04/09/20 08:59 Last Admin: 03/10/20 08:47 Dose: 1 pkt Documented by: [id number] Sennosides (Senna 8.6 Mg Tab) 17.2 mg PO HS [facility] Stop: 04/08/20 20:59 Last Admin: 03/09/20 21:01 Dose: Not Given Documented by: [id number] Sodium Chloride (Sodium Chloride 5% (Selina) Op Oint 3.5 Gm Tube) 1 appln OP HS [facility] Stop: 04/08/20 20:59 Last Admin: 03/09/20 21:00 Dose: 1 appln Documented by: [id number] Valsartan (Valsartan 80 Mg Tab) 80 mg PO QAM [facility] Stop: 04/09/20 08:59 Last Admin: 03/10/20 08:47 Dose: 80 mg Documented by: [id number] Vitamin D (Cholecalciferol 1,000 Units 25 Mcg Tab) 1,000 units PO DAILY [facility] Stop: 04/09/20 08:59 Last Admin: 03/10/20 08:46 Dose: 1,000 units Documented by: [id number] Discontinued Medications Acetaminophen (Acetaminophen 500 Mg Tab) 1,000 mg PO PREOP [facility] Stop: 03/09/20 18:00 Last Admin: 03/09/20 17:58 Dose: Not Given Documented by: [id number] Bacitracin (Bacitracin Inj 50,000 Unit Vial) Confirm Administered Dose 50,000 units .ROUTE .STK-MED ONE Stop: 03/09/20 06:44 Last Admin: 03/09/20 09:03 Dose: 50,000 units Documented by: [id number] Celecoxib (Celebrex 200 Mg Cap) 200 mg PO PREOP [facility] Stop: 03/09/20 18:00 Last Admin: 03/09/20 17:57 Dose: Not Given Documented by: [id number] Dexamethasone (Dexamethasone 4 Mg Tab) 8 mg PO PREOP [facility] Stop: 03/09/20 18:00 Last Admin: 03/09/20 17:57 Dose: Not Given Documented by: [id number] Famotidine (Famotidine 20 Mg Tab) 20 mg PO PREOP [facility] Stop: 03/09/20 18:00 Last Admin: 03/09/20 17:57 Dose: Not Given Documented by: [id number] Gabapentin (Gabapentin 300 Mg Cap) 300 mg PO PREOP [facility] Stop: 03/09/20 18:00 Last Admin: 03/09/20 17:58 Dose: Not Given Documented by: [id number] Lactated Ringer's (Lr) 1,000 mls @ 15 mls/hr IV .Q24H [facility] Stop: 03/09/20 18:00 Last Infusion: 03/09/20 07:12 Dose: 0 mls/hr Documented by: [id number] Admin: 03/09/20 05:41 Dose: 15 mls/hr Documented by: [id number] Cefazolin Sodium (Ancef 2000mg) 2,000 mg in 15 mls @ 3.75 mls/min IV PREOP [facility]; Protocol Stop: 03/09/20 18:00 Last Admin: 03/09/20 07:12 Dose: 3.75 mls/min Documented by: [id number] Ropivacaine 150 mg/Bupivacaine HCl 30 ml/Epinephrine HCl 0.15 mg/Ketorolac Tromethamine 30 mg/Dexamethasone 4 mg/ Ketamine HCl 10 mg/ Clonidine HCl 100 mcg/ Sodium Chloride 93.35 mls @ 0 mls/hr INSTIL PREOP [facility] Stop: 03/09/20 06:01 Last Admin: 03/09/20 09:03 Dose: 93.35 mls/hr Documented by: [id number] Tranexamic Acid (Tranexamic Acid / 0.7% Nacl) 1,000 mg in 100 mls @ 600 mls/hr IV TODAY@0600 [facility] Stop: 03/09/20 18:00 Last Infusion: 03/09/20 07:08 Dose: 0 mls/hr Documented by: [id number] Admin: 03/09/20 06:58 Dose: 600 mls/hr Documented by: [id number] Tranexamic Acid (Tranexamic Acid / 0.7% Nacl) 1,000 mg in 100 mls @ 600 mls/hr IV TODAY@0600 [facility] Stop: 03/09/20 18:00 Last Infusion: 03/09/20 17:59 Dose: 0 mls/hr Documented by: [id number] Admin: 03/09/20 08:36 Dose: 600 mls/hr Documented by: [id number] Vancomycin HCl 1,250 mg/ (Sodium Chloride) 275 mls @ 200 mls/hr IV PREOP [facility] Stop: 03/09/20 18:00 Last Infusion: 03/09/20 18:00 Dose: 0 mls/hr Documented by: [id number] Admin: 03/09/20 05:41 Dose: 200 mls/hr Documented by: [id number] Sodium Chloride (Nss 1000ml) 1,000 mls @ 100 mls/hr IV .Q10H [facility] Stop: 04/08/20 10:56 Last Admin: 03/09/20 22:49 Dose: Not Given Documented by: [id number] Infusion: 03/09/20 22:14 Dose: 0 mls/hr Documented by: [id number] Admin: 03/09/20 12:14 Dose: 100 mls/hr Documented by: [id number] Vancomycin HCl 1,250 mg/ (Sodium Chloride) 250 mls @ 166.667 mls/hr IV Q12H [facility] Stop: 03/09/20 19:29 Last Infusion: 03/09/20 19:01 Dose: 0 mls/hr Documented by: [id number] Admin: 03/09/20 17:14 Dose: 166.7 mls/hr Documented by: [id number] Metoclopramide HCl (Metoclopramide Hcl 10 Mg Tablet) 10 mg PO PREOP [facility] Stop: 03/09/20 18:00 Last Admin: 03/09/20 17:58 Dose: Not Given Documented by: [id number] Miscellaneous (Ortho Joint Anesthetic ) Confirm Administered Dose 1 ea .ROUTE .STK-MED ONE Stop: 03/09/20 06:44 Last Admin: 03/09/20 09:04 Dose: Not Given Documented by: [id number]
[2020-03-10] MEDS ORDERED: DULoxetine HCL 60 MG CAP PO SCH (09:00)
[2020-03-10] MEDS ORDERED: PSYLLIUM 58.6% POWDER PACKET PO SCH (09:00)
[2020-03-10] MEDS ORDERED: FOLIC ACID 400 MCG TAB PO SCH (09:00)
[2020-03-10] MEDS ORDERED: ATORVASTATIN 10 MG TAB PO SCH (09:00)
[2020-03-10] MEDS ORDERED: VALSARTAN 80 MG TAB PO SCH (09:00)
[2020-03-10] MEDS ORDERED: DULoxetine HCL 30 MG CAP PO SCH (09:00)
[2020-03-10] MEDS ORDERED: PANTOprazole 40 MG TAB PO SCH (09:00)
[2020-03-10] MEDS ORDERED: CHOLECALCIFEROL 1,000 UNITS 25 MCG TAB PO SCH (09:00)
[2020-03-10] MEDS ORDERED: FLUoxetine HCL 10 MG CAP PO SCH (09:00)
[2020-03-10] MEDS ORDERED: CHLORTHALIDONE 25 MG TAB PO SCH (09:00)
[2020-03-10] MEDS ORDERED: CYANOCOBALAMIN 500 MCG TABLET (VITAMIN B-12) PO SCH (09:00)
[2020-03-10] MEDS ORDERED: MULTIVITAMIN TAB PO SCH (09:00)
--- NOTE | 2020-03-10 09:50 | Orthopedic Progress Note ---
Date of Service March 10, 2020 Assessment & Plan (1) Osteoarthritis of left knee: Postop day 1 status post left total knee arthroplasty. PT/OT protocols. Weightbearing as tolerated. DVT prophylaxis-aspirin p.o. twice daily, SCDs, CJ metcalf. Management as written. Mild increase in her creatinine this morning. Patient tolerating fluids and eating well. Planning for outpatient BMP for discharge and follow-up with primary care physician. DC planning-patient is planning for home health services upon discharge. Admission and Anticipated Discharge Date Admission Date: March 09, 2020 Subjective Postop day 1 Patient sitting up in bed awake and alert. Hospitalist service present seeing the patient at this time. Pain controlled. No complaints. Denies shortness of breath, chest pain, lightheadedness. Physical Exam Physical Exam: Dressings are clean, dry, and intact. Calves are soft nontender. Neurovascular is intact. Toes are mobile. She has good dorsiflexion and plantarflexion of the left foot. Hemovac drainage was 60 mL from the previous shift. Results & Data ([facility]) Vital Signs (Past 12 Hours) Vital Signs Temp Pulse Resp BP BP Pulse Ox 03/10/20 07:52 36.8 C 67 15 133/71 94 03/10/20 03:59 36.7 C 67 16 108/56 L 97 03/09/20 23:50 36.4 C L 59 L 16 118/69 96 Laboratory Results Laboratory Results WBC 13.25 K/uL (4.8-10.8) H 03/10/20 06:31 RBC 3.57 M/uL (4.2-5.4) L 03/10/20 06:31 Hgb 11.0 g/dL (12.0-16.0) L 03/10/20 06:31 Hct 33.5 % (37-47) L 03/10/20 06:31 MCV 93.8 fL (80-100) 03/10/20 06:31 MCH 30.8 pg (25-34) 03/10/20 06:31 MCHC 32.8 g/dL (32-36) 03/10/20 06:31 RDW Std Deviation 44.0 fL (36.4-46.3) 03/10/20 06:31 RDW Coeff of Herb 12.9 % (11.5-14.5) 03/10/20 06:31 Plt Count 174 K/uL (130-400) 03/10/20 06:31 MPV 10.9 fL (7.4-10.4) H 03/10/20 06:31 Immature Gran % (Auto) 0.0 % 02/09/20 11:10 Neut % (Auto) 68.7 % 02/09/20 11:10 Lymph % (Auto) 18.6 % 02/09/20 11:10 [place] % (Auto) 10.1 % 02/09/20 11:10 Eos % (Auto) 2.0 % 02/09/20 11:10 Baso % (Auto) 0.6 % 02/09/20 11:10 Neut # (Auto) 3.72 K/uL (1.4-6.5) 02/09/20 11:10 Lymph # (Auto) 1.01 K/uL (1.2-3.4) L 02/09/20 11:10 [place] # (Auto) 0.55 K/uL (0.11-0.59) 02/09/20 11:10 Eos # (Auto) 0.11 K/uL (0-0.5) 02/09/20 11:10 Baso # (Auto) 0.03 K/uL (0-0.2) 02/09/20 11:10 Immature Gran # (Auto) 0.00 K/uL (0.00-0.02) 02/09/20 11:10 PT 10.0 Seconds (9.0-12.0) 02/09/20 11:10 INR 0.9 (0.9-1.1) 02/09/20 11:10 APTT 27.1 Seconds (21.0-31.0) 02/09/20 11:10 PTT Ratio 1.0 02/09/20 11:10 Sodium 138 mmol/L (136-145) 03/10/20 06:31 Potassium 3.8 mmol/L (3.5-5.1) 03/10/20 06:31 Chloride 105 mmol/L (98-107) 03/10/20 06:31 Carbon Dioxide 28 mmol/L (21-32) 03/10/20 06:31 Anion Gap 5.0 (3-11) 03/10/20 06:31 BUN 35 mg/dl (7-18) H 03/10/20 06:31 Creatinine 1.71 mg/dl (0.6-1.2) H 03/10/20 06:31 Est Cr Clr Drug Dosing 30.8 ml/min 03/10/20 06:31 Est GFR ( Amer) 33.6 03/10/20 06:31 Est GFR (Non-Af Amer) 29.0 03/10/20 06:31 BUN/Creatinine Ratio 20.7 (10-20) H 03/10/20 06:31 Glucose 133 mg/dl (70-99) H 03/10/20 06:31 Estimat Average Glucose 128 mg/dl 02/09/20 11:10 Hemoglobin A1c 6.1 % (4.5-5.6) H 02/09/20 11:10 Calcium 7.5 mg/dl (8.5-10.1) L 03/10/20 06:31 Albumin 3.7 gm/dl (3.4-5.0) 02/09/20 11:10 Urine Color Yellow 02/09/20 11:10 Urine Appearance Clear (Clear) 02/09/20 11:10 Urine pH 7.0 (4.5-7.5) 02/09/20 11:10 Ur Specific [place] 1.009 (1.000-1.030) 02/09/20 11:10 Urine Protein Negative (Negative) 02/09/20 11:10 Urine Glucose (UA) Negative (Negative) 02/09/20 11:10 Urine Ketones Negative (Negative) 02/09/20 11:10 Urine Blood Negative (Negative) 02/09/20 11:10 Urine Nitrite Negative (Negative) 02/09/20 11:10 Urine Bilirubin Negative (Negative) 02/09/20 11:10 Urine Urobilinogen Negative (Negative) 02/09/20 11:10 Ur Leukocyte Esterase Negative (Negative) 02/09/20 11:10 Blood Type O Positive 02/09/20 11:10 Antibody Screen NEGATIVE 02/09/20 11:10
--- NOTE | 2020-03-22 20:07 | Discharge Summary (DS) ---
HISTORY OF PRESENT ILLNESS: This is a 74-year-old female patient of Dr. Lewis'mary complaining of chronic left knee pain and instability, longstanding, progressively getting worse. The patient was diagnosed with end-stage osteoarthritis and elected to proceed with a left total knee arthroplasty. PAST MEDICAL HISTORY: Hypertension, anxiety, peripheral neuropathy, hypothyroidism, osteoarthritis, spine problems, acid reflux, obesity, history of large B cell lymphoma. POSTOPERATIVE COURSE: The patient underwent a left total knee arthroplasty on 03/09/2020. She was followed closely with medical consultation, physical therapy, DVT prophylaxis in the form of aspirin and pain medications. The patient did very well postoperatively and was discharged on postoperative day #1. PHYSICAL EXAMINATION: On discharge, left knee dressings were clean, dry and intact. There were no redness or drainage. She had no calf tenderness. Negative Homans sign. Toes and ankle were mobile. Neurologically and neurovascularly, she is intact in her left lower extremity. DIAGNOSES: Status post left total knee arthroplasty with a history of hypertension, anxiety, peripheral neuropathy, hypothyroidism, osteoarthritis, spine problems, sciatica, acid reflux, obesity and large B cell lymphoma. PLAN: The patient was discharged home with home health services. She will continue her preadmission medications with the addition of aspirin twice daily for DVT prophylaxis and pain medications as needed. The patient will follow up as scheduled as an outpatient.
== END 2020-03-10 12:28 | disposition home health service (06) ==
LOC: 3E 05:04 → ASU 05:04

== ENCOUNTER 2023-12-23 08:19 | Inpatient (IN) ==
--- NOTE | 2023-12-10 11:02 | PAT Medication Instructions ---
Medication Instructions Date of Service December 10, 2023 Home Medications Medication Instructions Recorded polyethylene glycol 3350 17 gram 17 g PO DAILY PRN constipation #5 03/10/20 oral powder packet (Miralax) ea Sooth Eye Drops 1 drp ophthalmic (eye) TID levothyroxine 125 mcg tablet (Synthroid) 50 mcg PO QAM metoprolol tartrate 25 mg tablet 25 mg PO BID pantoprazole 40 mg tablet,delayed release 40 mg PO QAM psyllium husk 3.4 gram/5.4 gram oral powder (Metamucil) 1 tbsp PO QAM sodium chloride 5 % eye ointment (Selina 128) 0.25 inch ophthalmic (eye) HS atorvastatin 10 mg tablet 10 mg PO QAM fluoxetine 10 mg tablet 10 mg PO QAM cholecalciferol (vitamin D3) 25 mcg (1,000 unit) capsule (Vitamin D3) 25 mcg PO QAM polyethylene glycol 3350 17 gram oral powder packet (Miralax) 17 g PO DAILY PRN Botox 1 dose SC UD albuterol sulfate 2.5 mg/3 mL (0.083 %) solution for nebulization 2.5 mg inhalation UD PRN amlodipine 5 mg tablet 5 mg PO QPM apixaban 5 mg tablet 5 mg PO BID cyanocobalamin (vitamin B-12) 500 mcg tablet (Vitamin B-12) 500 mcg PO QAM gabapentin 100 mg capsule 200 mg PO TID galcanezumab-gnlm 120 mg/mL subcutaneous pen injector (Emgality Pen) 120 mg subcut Q30D loratadine 10 mg tablet 10 mg PO DAILY PRN meclizine 25 mg tablet 25 mg PO DAILY PRN psyllium husk 3.4 gram/5.4 gram oral powder (Metamucil) 1 tbsp PO DAILY rimegepant 75 mg disintegrating tablet (Nurtec ODT) 75 mg PO Q2D tizanidine 2 mg tablet 2 mg PO BID topiramate 100 mg tablet 100 mg PO BID valsartan 40 mg tablet 40 mg PO QPM Continue as directed Botox 1 dose SC UD albuterol sulfate 2.5 mg/3 mL (0.083 %) solution for nebulization 2.5 mg inhalation UD PRN(if needed) meclizine 25 mg tablet 25 mg PO DAILY PRN(if needed) ASK your surgeon for instructions galcanezumab-gnlm 120 mg/mL subcutaneous pen injector (Emgality Pen) 120 mg subcut Q30D ASK your prescriber and surgeon apixaban 5 mg tablet 5 mg PO BID rimegepant 75 mg disintegrating tablet (Nurtec ODT) 75 mg PO Q2D DO NOT take the morning of surgery psyllium husk 3.4 gram/5.4 gram oral powder (Metamucil) 1 tbsp PO QAM cholecalciferol (vitamin D3) 25 mcg (1,000 unit) capsule (Vitamin D3) 25 mcg PO QAM polyethylene glycol 3350 17 gram oral powder packet (Miralax) 17 g PO DAILY PRN cyanocobalamin (vitamin B-12) 500 mcg tablet (Vitamin B-12) 500 mcg PO QAM loratadine 10 mg tablet 10 mg PO DAILY PRN psyllium husk 3.4 gram/5.4 gram oral powder (Metamucil) 1 tbsp PO DAILY Take morning of surgery With a small sip of water, OTHERWISE NOTHING TO EAT OR DRINK AFTER MIDNIGHT: Sooth Eye Drops 1 drp ophthalmic (eye) TID levothyroxine 125 mcg tablet (Synthroid) 50 mcg PO QAM metoprolol tartrate 25 mg tablet 25 mg PO BID pantoprazole 40 mg tablet,delayed release 40 mg PO QAM atorvastatin 10 mg tablet 10 mg PO QAM fluoxetine 10 mg tablet 10 mg PO QAM gabapentin 100 mg capsule 200 mg PO TID tizanidine 2 mg tablet 2 mg PO BID topiramate 100 mg tablet 100 mg PO BID Take evening before surgery Sooth Eye Drops 1 drp ophthalmic (eye) TID metoprolol tartrate 25 mg tablet 25 mg PO BID sodium chloride 5 % eye ointment (Selina 128) 0.25 inch ophthalmic (eye) HS amlodipine 5 mg tablet 5 mg PO QPM gabapentin 100 mg capsule 200 mg PO TID tizanidine 2 mg tablet 2 mg PO BID topiramate 100 mg tablet 100 mg PO BID valsartan 40 mg tablet 40 mg PO QPM Other Notes If you have any questions please call us at [phone] or [phone] or [phone] or [phone]
--- NOTE | 2023-12-16 11:38 | Anesthesiology Consultation ---
Date of Service December 16, 2023 Assessment & Plan (1) Encounter for pre-operative examination: - medical clearance 12/17/23 [facility]: "...lumbar decompression at L2-3 with fusion...cleared to proceed with surgery...low risk..." - cardiology office visit 08/05/23 [facility]: "...pAF seen on device check and she is not on AC...BP is up in the evening she was just started on norvasc by nephrology...recommend taking the valsartan at noon...increase the norvasc to 5 mg and take this in the evening with the second metoprolol dose...Follow up in 6 months...apixaban 5 mg twice daily..." - patient reported anesthesia complications: laryngeal edema after intubations in the past. - L3-L5 decompression fusion 04/30/2018: Grade 1 view, MAC 3, ETT 7.0. No notation on post-op complications. - to additional record review from 2017 and 2019 anesthesia notes: "PATIENT REPORTS H/O LARYNGEAL EDEMA POST OP -- INITIALLY IN 1970s AFTER CHOLECYSTECTOMY, BUT SHE REPORTS A FEW "MINOR" EPISODES WITH OTHER SURGERIES. Per patient, also experienced episodes of SOB when working with PT after lumbar fusion in 04/2018, but does not describe throat swelling, and records from that hospitalization do not indicate there were any issues with her airway. Per anesthesia consult prior to that surgery from Marleen White PA-C, "Inguinofemoral lymphadenectomy= 04/26/17= LMA 4, attempts x 1, atraumatic; no anesthetic complications noted (done at [facility]; anesthesia records added to chart)." - Case discussed in detail with Dr. Black who advised nothing additional is needed. Chart Review Chart Review: Acceptable Risk for Surgery and Patient seen in Pre Admission Testing Teaching & Discussion Pre-Anesthesia Teaching/Discussion Notes: Instructed NPO after midnight before surgery, except medications with 15 cc of water. Medication instructions provided according to the PAT guidelines. History Surgery Operation Date: 12/23/23 10:05 Proposed Procedures p L2-L3 Decompression and Fusion, Connect to Previous Hardware, with Spinal Cord Monitoring - Anthony Hawk, DO Height/Weight Height: 5 ft 5 in Weight: 84.5 kg Allergies Allergy/AdvReac Type Severity Reaction Status Date / Time adhesive Allergy Mild Rash Verified 12/09/23 14:25 clemastine [From Tavist] Allergy Mild Rash Verified 12/09/23 14:25 piroxicam [From Feldene] Allergy Mild Rash Verified 12/09/23 14:25 pseudoephedrine [From Tavist] Allergy Mild Rash Verified 12/09/23 14:25 Medications Home Medications Medication Instructions Recorded Confirmed Last Taken Sooth Eye Drops 1 drp ophthalmic (eye) TID 04/14/18 12/09/23 03/08/20 04:00 levothyroxine 125 mcg tablet 50 mcg PO QAM 04/14/18 12/09/23 03/09/20 03:30 (Synthroid) metoprolol tartrate 25 mg tablet 25 mg PO BID 04/14/18 12/09/23 03/08/20 17:00 pantoprazole 40 mg tablet,delayed 40 mg PO QAM 04/14/18 12/09/23 03/08/20 03:30 release psyllium husk 3.4 gram/5.4 gram 1 tbsp PO QAM 04/14/18 12/09/23 03/08/20 08:00 oral powder (Metamucil) sodium chloride 5 % eye ointment 0.25 inch ophthalmic (eye) HS 04/14/18 12/09/23 03/08/20 21:00 (Selina 128) atorvastatin 10 mg tablet 10 mg PO QAM 04/30/18 12/09/23 03/09/20 03:30 fluoxetine 10 mg tablet 10 mg PO QAM 01/25/20 12/09/23 03/08/20 03:30 cholecalciferol (vitamin D3) 25 25 mcg PO QAM 02/15/20 12/09/23 03/08/20 08:00 mcg (1,000 unit) capsule (Vitamin D3) polyethylene glycol 3350 17 gram 17 g PO DAILY PRN constipation #5 03/10/20 12/09/23 Unknown oral powder packet (Miralax) ea Botox 1 dose SC UD 12/09/23 12/09/23 Unknown albuterol sulfate 2.5 mg/3 mL 2.5 mg inhalation UD PRN SOB 12/09/23 12/09/23 U nknown (0.083 %) solution for nebulization amlodipine 5 mg tablet 5 mg PO QPM 12/09/23 12/09/23 Unknown apixaban 5 mg tablet 5 mg PO BID 12/09/23 12/09/23 Unknown cyanocobalamin (vitamin B-12) 500 500 mcg PO QAM 12/09/23 12/09/23 Unknown mcg tablet (Vitamin B-12) gabapentin 100 mg capsule 200 mg PO TID 12/09/23 12/09/23 Unknown galcanezumab-gnlm 120 mg/mL 120 mg subcut Q30D 12/09/23 12/09/23 Unknown subcutaneous pen injector (Emgality Pen) loratadine 10 mg tablet 10 mg PO DAILY PRN Allergy Symptoms 12/09/23 12/09/23 Unknown meclizine 25 mg tablet 25 mg PO DAILY PRN Vertigo 12/09/23 12/09/23 Unknown psyllium husk 3.4 gram/5.4 gram 1 tbsp PO DAILY 12/09/23 12/09/23 Unknown oral powder (Metamucil) rimegepant 75 mg disintegrating 75 mg PO Q2D 12/09/23 12/09/23 Unknown tablet (Nurtec ODT) tizanidine 2 mg tablet 2 mg PO BID 12/09/23 12/09/23 Unknown topiramate 100 mg tablet 100 mg PO BID 12/09/23 12/09/23 Unknown valsartan 40 mg tablet 40 mg PO QPM 12/09/23 12/09/23 Unknown Past Medical History Medical History Anesthesia complication laryngeal edema with previous intubations Atrial fibrillation currently on eliqujorge; cynthia, [facility] Cardiomyopathy 2/2 chemotherapy, resolved, EF normal on 2018 echo. Chronic kidney disease, stage 3 2/2 chemo; f/u dr. 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 Exercise / Class Metabolic Activity III < 4 Walking/Shop/Light housework (denies chest discomfort or shortness of breath with usual activities) Past Family History Family History Father Stroke Hypertension Mother Diabetes Stroke Congestive heart failure Past Surgical History Surgical History Fusion of spine 2018, L3-L4 and L4-L5; [facility] H/O repair of right rotator cuff History of appendectomy History of bladder surgery A&P repair History of carpal tunnel release of both wrists History of cataract surgery rt/lt History of cholecystectomy History of colonoscopy with polypectomy History of esophagogastroduodenoscopy (EGD) History of ovarian cystectomy History of total abdominal hysterectomy and bilateral salpingo-oophorectomy History of total left knee replacement History of vascular access device "just a central line," subsequent removal Hx of foot surgery lt Laryngeal edema 6-8x, last time was with lumbar fusion in 2018 at [facility] S/P cardiac pacemaker procedure 07/2022, robson almaraz, medtronic; f/u robson fatima Past Anesthesia History No Family Hx of Anesthesia Complications and Other (slow to wake and laryngeal edema with intubations) History of PONV No Hx of PONV and No Hx of Motion Sickness Social History Smoking Status: Never smoker Do You Dip or Chew Tobacco: No Hx Alcohol Use: Yes alcohol intake frequency: other Alcohol Intake Frequency Comment: very rare Hx Substance Use: No substance use type: does not use Review of Systems Patient reports hypotension in the morning noting onset with starting tizanidine. She was advised to not take tizanidine until she sees PCP. Patient denies chest pain, shortness of breath, dyspnea on exertion, snoring, witnessed apneas, fever, chills, cough, wheezing, or palpitations. Physical Exam Vital Signs Vitals BP 138/77 P 67 TEMP 97.8 SP02 100% on RA RESP 18 Physical Patient resting comfortably in chair in no acute distress, alert and oriented, responding appropriately throughout visit Full cervical extension range of motion without pain TMD 3.5 finger breadths Mallampati Score 2 Dentition: intact, denies chipped or loose teeth, caps/crowns, implants or bridges Lungs: normal respiratory effort. Good air movement, clear throughout to auscultation, no adventitious breath sounds Cardiac: regular rate and rhythm, no murmurs noted Carotid arteries: negative bruit bilat Lab Results Anesthesia Preop Results Results Anesthesia Widget: WBC 4.65 K/ul (4.8-10.8) L 12/16/23 Hgb 12.3 g/dl (12.0-16.0) 12/16/23 Hct 39.0 % (37.0-47.0) 12/16/23 Plt 170 K/uL (130-400) 12/16/23 PT 11.0 Seconds (9.0-12.0) 12/16/23 PTT 30 Seconds (21-31) 12/16/23 INR 1.0 (0.9-1.1) 12/16/23 HA1c 6.0 % (4.5-5.6) H 12/16/23 Urine Color Yellow 12/16/23 Urine Appearance Clear (Clear) 12/16/23 Urine pH 6.0 (4.5-7.5) 12/16/23 Urine Specific [place] 1.006 (1.000-1.030) 12/16/23 Urine Protein Negative (Negative) 12/16/23 Urine Glucose (UA) Negative (Negative) 12/16/23 Urine Ketones Negative (Negative) 12/16/23 Urine Blood Negative (Negative) 12/16/23 Urine Nitrite Negative (Negative) 12/16/23 Urine Bilirubin Negative (Negative) 12/16/23 Urine Urobilinogen Negative (Negative) 12/16/23 Urine Leukocyte Esterase Negative (Negative) 12/16/23 Blood Type O Positive 12/16/23 Antibody Screen NEGATIVE 12/16/23 Testing Laboratory Results 11/08/23 SODIUM: 137 POTASSIUM: 4.0 CHLORIDE: 103 CO2: 21 BUN: 22 CREATININE: 1.4 GLUCOSE: 96 Electrocardiogram Date: 06/19/23 Atrial paced rhythm with intermittent intrinsic rhythm, rate 61 bpm Chest X-Ray Date: 11/26/23 No acute disease in chest. 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
[~2023-12-23 08:19] MED LIST: ALLERGY Noted to ORDERED Medication SCH
[2023-12-23] MEDS: LR 15ML/HR IV SCH (09:24)
[2023-12-23] MEDS: ACETAMINOPHEN 500 MG TAB PO SCH (09:25)
[2023-12-23] MEDS: LR 60ML/HR IV SCH (09:27)
[2023-12-23] MEDS: GABAPENTIN 300 MG CAP PO SCH (09:27)
[2023-12-23] MEDS ORDERED: PROPOFOL IV EMULSION 10 MG/ML 20 ML VIAL IV ONE (09:30)
[2023-12-23] MEDS ORDERED: ROCURONIUM BROMIDE 10 MG/ML 5 ML VIAL IV ONE (09:30)
[2023-12-23] MEDS ORDERED: fentaNYL citrate PF 100 MCG/2 ML VIAL ONE ×2 (09:31→11:26)
--- OUTSIDE RECORDS SUMMARY | 2023-12-23 09:42 | External Medical Summary | Summary of Care ---
Author Name Unknown Organization [facility] Address [address] [place] [address] Phone [phone] Care Team Providers Care System Software Programmer Name Role Phone Mumtaz Cedeno MD Primary Care Provider Reason for Visit * Reason Onset Date Comments Appointment 12/19/2023 Encounter Details Date Type Department Care Team (Late st Contact Info) Description 12/19/2023 Telephone [facility] [place] [address] [place] [phone] Services, Scheduling [address] [place] [address] Appointment Allergies Active Allergy Reactions Criticality Noted Date Comments Adhesive Tape 11/06/2001 Clemastine Rash 08/05/2023 Phenylpropanolamine 01/05/2002 rash Nahum-D Piroxicam 11/05/2001 feldene--rash. Tolerated Ibuprofen with no rash. documented as of this encounter (statuses as of 12/19/2023) Medications Medication Sig Dispensed Refills Start Date End Date Status ISAURA 128 5 % OP SOLNIndications:Dry eyes Instill 1 Drop into both eyes as needed for Dry eyes. 0 0 09/06/2004 Active SOOTHE XP OP SOLN one drop TID Activ e Psyllium 28.3 % Oral Powder Take by mouth. Per pt she is taking two tsp daily Active Loratadine 10 MG Oral Capsule Take 1 Capsule by mouth in the morning. Active B-12 500 MCG Oral TabletIndications:B1 2 deficiency Take 1 Tab by mouth daily. 30 Tab 11 02/12/2020 Active Vitamin D 25 MCG (1000 UT) Oral Tablet Take 1 Tablet by mouth in the morning. Active Meclizine HCl 25 MG Oral Tablet (Antivert)Indication s:Benign paroxysmal vertigo, unspecified laterality Take by mouth 1 Tablet as needed in the morning AND 1 Tablet as needed at noon AND 1 Tablet as needed in the evening for Dizziness. 30 Tablet 1 06/12/2021 Active Albuterol Sulfate (2.5 MG/3ML) 0.083% Inhalation Nebulization Solution (Proventil)Indicatio ns:Bronchitis, complicated Use one three milliliter vial of solution in nebulizer, as often as every four hours as needed for cough or wheeze. 225 mL 1 01/23/2022 Active Nystatin 208454 UNIT/GM External Powder (Nystop) Apply topically to affected area 3 times a day. Apply to to areas of intertrigo under breast. Twice a day as needed. 30 g 08/29/2022 Active Atorvastatin Calcium 10 MG Oral Tablet (Lipitor)Indications :Dyslipidemia, goal LDL below 100 TAKE ONE TABLET BY MOUTH EVERY DAY 100 Tablet 3 02/21/2023 Active Pantoprazole Sodium 40 MG Oral Tablet Delayed Release (Protonix)Indication s:Gastroesophageal reflux disease with esophagitis TAKE ONE TABLET BY MOUTH EVERY MORNING 90 Tablet 3 03/16/2023 03/15/2024 Active Metoprolol Tartrate 25 MG Oral Tablet (Lopressor)Indicatio ns:Coronary artery disease involving [place] coronary artery of [place] heart without angina pectoris TAKE ONE TABLET BY MOUTH EVERY MORNING AND ONE TABLET BEFORE BEDTIME 180 Tablet 3 06/25/2023 06/24/2024 Active FLUoxetine HCl 10 MG Oral Capsule (PROzac)Indications: Major depressive disorder with single episode, in full remission (HCC) TAKE ONE CAPSULE BY MOUTH EVERY DAY 90 Capsule 3 07/02/2023 07/01/2024 Active Apixaban 5 MG Oral Tablet (Eliquis) Take 1 Tablet by mouth in the morning and 1 Tablet before bedtime. 90 Tablet 3 08/05/2023 Active amLODIPine Besylate 5 MG Oral Tablet (Norvasc)Indications :Essential hypertension with goal blood pressure less than 150/90 Take 1 Tablet by mouth every evening. 90 Tablet 3 08/05/2023 Active Valsartan 40 MG Oral Tablet (Diovan)Indications: Essential hypertension Take 1 Tablet by mouth at bedtime 90 Tablet 1 08/13/2023 Active Emgality 120 MG/ML Subcutaneous Solution Auto-injector (Galcanezumab-gnlm) Inject 1 ml (120mg) under the skin once monthly 2 mL 3 08/22/2023 Active Nurtec 75 MG Oral Tablet Disintegrating (Rimegepant Sulfate) Place 1 tablet above or under the tongue every other day. 48 Tablet 4 09/10/2023 Active Levothyroxine Sodium 50 MCG Oral Tablet (Levoxyl) TAKE ONE TABLET BY MOUTH DAILY AT LEAST 30 MINUTES PRIOR TO BREAKFAST OR OTHER MEDS 100 Tablet 3 09/19/2023 09/18/2024 Active Topiramate 100 MG Oral Tablet (Topamax) take 1 tablet by mouth twice daily 180 Tablet 4 10/24/2023 Active tiZANidine HCl 2 MG Oral Tablet (Zanaflex) Take 1 Tablet by mouth in the morning and 1 Tablet before bedtime. 11/07/2023 Active Gabapentin 100 MG Oral Capsule (Neurontin) Take 2 Capsules by mouth 2 times a day. 12/18/2023 Active documented as of this encounter (statuses as of 12/19/2023) Active Problems Problem Noted Date Diagnosed Date Labile blood pressure 06/25/2023 Diffuse large B-cell lymphoma 06/25/2023 Major depressive disorder, single episode, moder ate 06/25/2023 Intractable chronic migraine without aura and without status migrainosus 06/25/2023 Migraine without status migrainosus, not intract able 09/30/2022 Last Assessment & Plan: Followed by Dr. Quiroga --topamax 25mg 2 tabs BID --ubrelvy 100mg rescue Other complicated headache syndrome 08/01/2022 Last Assessment & Plan: Has upcoming appt with Dr. Quiroga August 15. Headaches are reportedly much improved since pacemaker placement Tachy-sam syndrome 07/16/2022 Last Assessment & Plan: S/p pacemaker--feeling much better since surgery Cerebral atherosclerosis 06/06/2022 Last Assessment & Plan: LDL at 54 on 05/22/22 Hgba1c 05/22/22 6.1 Now on asa Continue atorvastatin BP at goal Adjustment disorder with mixed anxiety and depre ssed mood 05/30/2022 Hyperparathyroidism, secondary renal 06/12/2021 Stage 3b chronic kidney disease 06/12/2021 Hypertensive kidney disease with stage 3b chronic kidney disease 06/12/2021 Last Assessment & Plan: BP at goal today. Continue metoprolol, amlodipine, valsartan Avoid nephrotoxic drugs. Gastro-esophageal reflux disease without esophag itis 06/09/2019 Last Assessment & Plan: Stable on pantoprazole Drug-induced polyneuropathy 06/18/2018 Hyperprolactinemia 11/01/2017 Major depressive disorder wi th single episode, in full remission 11/01/2017 Coronary artery disease invo lving t[place] river coronary artery of [place] heart without angina pectoris 06/18/2017 History of DVT of lower extremity 06/13/2017 Overview: Related to bulk effect of the lymphoma. Secondary hypothyroidism 05/01/2017 History of diffuse large B-cell lymphoma 017 Cancer Staging:Clinical stage from 04/26/2017:Stage II(B - Symptoms) - Unsigned Overview: HEMATOLOGY/ONCOLOGY DIAGNOSIS: DLBCL Stage II (possibly III) DATE OF DIAGNOSIS: 04/26/2017 via inguinal node biopsy TREATMENT RENDERED: R-CHOP x 6 cycles, with cycles 4-6 Adriamycin and Cytoxan reduced by 50% due to grade 4 neutropenia on cycle 3 CURRENT TREATMENT: Surveillance (January 2018). 2019: 73 year old female with history of DLBCL s/p R-CHOP x6 cycles, last chemo in 09/04/17 Clinically she remains in remission Last Assessment & Plan: diffuse large B-cell lymphoma inguinal lymph node, status post excision, 6 cycles of R-CHOP ending August 2017 and no evidence of disease Essential hypertension with goal blood pressure less than 150/90 01/26/2014 Last Assessment & Plan: BP elevated today, increased amlodipine to 5mg daily from 2.5mg daily Continue valsartan 80mg daily Metoprolol 12.5mg BID Urge incontinence 04/17/2013 Dyslipidemia, goal LDL below 100 04/10/2012 documented as of this encounter (statuses as of 12/19/2023) Resolved Problems Problem Noted Date Diagnosed Date Resolved Date Chronic migraine w/o aura w/ o status migrainosus, not intractable 03/14/2023 03/14/2023 Skin sensation disturbance 08/01/2022 0 11/01/2022 Last Assessment & Plan: She reported she just had EMG done by Dr. Kimber JEFFERS for tingling and numbness and will discuss results at her next appt. Today reports ongoing bilat hand numbness, worse R. History CTS repair--symptoms for months. She plans to discuss with Dr. Quiroga at her upcoming appt. TGA (transient global amnesia) 06/06/2022 10/05/2022 Last Assessment & Plan: Neurology follow up with Dr. Quiroga in August. Feeling good since d/c. Hypertensive encephalopathy 05/30/2022 10/06/2022 Uncontrolled hypertension 05/21/2022 Episode of confusion 05/21/2022 023 Hypertensive kidney disease with chronic kidney disease stage IV 02/20/2021 06/12/2021 Overview: HTN + CKD = conditions have assumed relationship per current coding guidelines Hyperparathyroidism 07/26/2020 06/12/19 22 Stage 4 chronic kidney disease 07/26/2020 06/12/2021 Thrombophilia 06/09/2019 06/12/2021 INFORMATION 02/10/2018 10/06/2022 Overview: 2018 vaccinations: Ms. Aguilar completed Rituxan with last dose August 2017. Thus, wait six months (on or after March 13, 2018) for live and inactive vaccinations. 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 2017 cardiac echo unremarkable. Encounter for antineoplastic chemotherapy 06/13/2017 06/12/2021 Overview: Acute. Need for prophylactic isolation 06/13/2017 11/01/2017 SERJIO (acute kidney injury) 06/13/2017 Febrile neutropenia 05/23/2017 12/21/19 18 MRSA bacteremia 05/23/2017 03/20/2018 Encounter for antineoplastic chemotherapy 05/23/2017 11/01/2017 Acute hyponatremia 04/23/2017 8 Inguinal lymphadenopathy 04/23/201703/2018 Retroperitoneal lymphadenopathy 04/23/2017 01/21/2018 Pain and swelling of right lower leg 04/23/2017 11/01/2017 Dehydration 04/23/2017 06/04/2017 Nausea and vomiting 04/23/2017 11/02/19 18 Drug-induced constipation 04/23/2017 Transaminitis 04/23/2017 12/20/2017 Hypertension, renal disease, stage 1-4 or unspecified chronic kidney disease 03/21/201711/03 History of bilateral carpal tunnel release 03/21/2017 03/20/2018 Fuchs' corneal dystrophy 03/20/201602/2018 Cataract 03/20/2016 12/20/2017 Benign hypertension with CKD (chronic kidney disease) stage III 09/04/2013 07/26/2020 Adjustment disorder with depressed mood 10/17/2010 06/20/2018 ADVANCE DIRECTIVE INFORMATION 06/03/2009 11/03/2017 Overview: Pt will issue advance directives/living will after 04/08/07 appt. Dyslipidemia, goal LDL below 100 04/21/2009 04/10/2012 Overview: Per Lipid Taxonomy. Kidney disease, chronic, sta ge III (GFR 30-59 ml/min) 02/15/2009 06/24/2019 Esophageal reflux 11/10/2008 06/09/2019 Female stress incontinence 11/10/2008 1 05/21/2016 Examination following surgery 04/09/2007 04/14/2015 Cystocele, lateral 03/19/2007 7 Allergic rhinitis 03/02/2004 03/20/2018 intradermal nevus with a albaro moplastic component left deltoid 12/31/2000 03/18/2002 015 Other viral warts 03/18/2002 04/14/2015 Overview: ICD-10 update of inactive term PURE HYPERCHOLESTEROLEM 04/12 Overview: Per Lipid Taxonomy. Need for prophylactic hormon e replacement therapy (postmenopausal) 04/10/2012 Major depressive disorder, r ecurrent episode, mild 07/31/2006 ELEV BL PRES W-O HYPERTN Myalgia 03/21/2017 CERVICAL DISC DEGEN 11/04/19 18 Carpal tunnel syndrome 03/21 documented as of this encounter (statuses as of 12/19/2023) Immunizations Name Administration Dates Next Due COVID-19 mRNA, LNP-s, No Pre serve, 2-Dose Series (Checkr) 02/08/2021,08/02/2020,07/07/2020 COVID-19, LNP-s, No Preserve , Jamie-sucrose, Ages 12+ (Checkr) 09/22/2021 COVID-19, MRNA-LNP, 23-24, P F, 30 MCG/0.3 mL, 12 YRS AND ABOVE, IM ([employer] [facility] 03/05/2023 Covid-19, Mrna, Lnp-s, Pf, B ivalent, 30 Mcg, IM, 12 yrs and above (Pfizer) 02/18/2022 Pneumococcal Conjugate Vacc, 13 Valent (Prevnar) 03/17/2015 Pneumococcal Polysaccharide PPV23 (Pneumovax) 10/17/2010 RSV Vac., Bivalent, Perfusio n F, Pf,0.5 Ml (Abrysvo) 05/03/2023 Season Influenza, Quad, PF, Adjuvanted, 65+ Yrs, IM (FLUAD) 01/15/2020 Seasonal Influenza, PF, 6 M & above, IM , (FluLaval or Fluzone) 03/19/2018 Seasonal Influenza, Quadriva lent Hd (Fluzone Hd) 02/05/2023,01/23/2022,02/03/2021 Seasonal Influenza, Quadriva lent, No Preserve, IM 03/20/2016 Seasonal Influenza, Split, I IV3, With Preserve, Inj 01/21/2015,01/26/2014,01/30/2013,01/23,02/09/2011,02/10/2010,04/11/2009 ,02/11/2008,02/10/2007,02/24/2006 Seasonal Influenza, Trivalen t, Adjuvanted, 65+ yrs 02/10/2019 Seasonal Influenza, Trivalen t, High Dose, No Preserve, IM 02/04/2017 TDAP (age 10 and older)(Boostrix) 11/13/2023,07/2012 Varicella Zoster Vaccine (Adult) 12/22/2010 Zoster Vaccine Recombinant (Shingrix) 03/21/2020 ,11/18/2019 documented as of this encounter Social History Tobacco Use Types Packs/Day Years Used Date Smoking Tobacco: Never Smokeless Tobacco: Never Alcohol Use Standard Drinks/Week Comments No 0 (1 standard drink = 0.6 oz pur e alcohol) PHQ-2 Answer Date Recorded PHQ Adult Total Score 0 10/10/2023 Hunger Vital Sign Answer Date Recorded Within the past 12 months, y ou worried that your food would run out before you got the money to buy more. Never true 09/25/19 23 Within the past 12 months, t he food you bought just didn't last and you didn't have money to get more. Never true 09/24/2022 Utilities Answer Date Recorded Do you have trouble paying y our heating, water, or electric bill? (Adult - for ages 18 years and over) Not on file 10/29/2023 Is your family able to pay t he heat, water, or electric bill? (Household - for ages 0-17 years) Not on file 10/29/2023 Does your family have access to good internet? (Household - for ages 0-17 years) Not on file 10/29/2023 Social Connections Answer Date Recorded How often do you feel lonely or isolated from those around you? (Adult - for ages 18 years and over) Not on file 10/29/2023 Sex and Gender Information Value Date Recorded Sex Assigned at Female 12/18/2018 8:55 AM EDT Gender Identity Female 12/18/2018 8:55 AM EDT Sexual Orientation Straight 12/18/2018 8: 55 AM EDT Job Start Date Occupation Industry Not on file Not on file Not on file documented as of this encounter Functional Status Functional Status Response Date of Assess ment Are you deaf or do you have serious difficulty h earing? No 05/21/2022 Are you blind or do you have serious difficulty seeing, even when wearing glasses? No 05/21/2022 Do you have serious difficul ty walking or climbing stairs? (5 years old or older) No 05/21/2022 Do you have difficulty dress ing or bathing? (5 years old or older) No 05/21/2022 Because of a physical, menta l, or emotional condition, do you have difficulty doing errands alone such as visiting a doctor s office or shopping? (15 years old or older) No 05/21/19 Cognitive Status Response Date of Assessm ent Because of a physical, menta l, or emotional condition, do you have serious difficulty concentrating, remembering, or making decisions? (5 years old or older) No 05/21/2022 documented as of this encounter Miscellaneous Notes * Telephone Encounter - Zenobia Snyder OSA - 12/19/2023 4:21 PM EDT [facility] Engagement Attempt Engagement: Engagement Attempt 1: Contacted - Agreed to home-based services Scheduled appointment information: pt scheduled to see nurse on 12/26 12:30 and AP on 03/05 at Home Information: No data was found Advance Care Planning (ACP): No data was found Has Living Will or Advance Directive: No data was found Anticipated Sub-Program: Focused Care Management (3-9 months) Confirmation of Sub-Program Type (by care steam plant records clerk): No data was found Handoff Information: Current care team notified via: Epic communication Current telemonitoring equipment: No data was found documented in this encounter Plan of Treatment Upcoming Encounters Date Type Department Care Team (Late st Contact Info) Description 12/27/2023 12:30 PM EDT Home Visit [facility], [address] [place] [address] Cherry Marroquin, RN [address] [facility] [place] [address] 12/30/2023 9:40 AM EDT Office Visit [place] [address] [place] [address] Mumtaz Cedeno MD [address] [place] [address] [place] [address] 01/07/2024 11:00 AM EDT Office Visit Neurology Steffany Lisa Villalba [address] [place] [address] Leon Lyles, [address] [place] [address] 01/21/2024 11:20 AM EDT Office Visit Nephrology, [address] [address] Karl Granado MD [address] [place] [address] 01/28/2024 8:40 AM EDT Laboratory Laboratory Patient Service [address] [place] [phone] [place] [address] [place] [address] 02/04/2024 1:00 PM EDT Office Visit Hematology/Oncology, [address] [address] Arlene Tucker CRNP [address] [place] [address] 02/13/2024 10:30 AM EDT Office Visit Cardiology, [address] [place] [address] Janet William CRNP [facility] [address] 03/05/2024 10:00 AM EDT Home Visit [facility], [facility] [address] [facility] [place] [address] Yeni Wilson CRNP [address] [facility] [place] [address] 10/15/2024 9:00 AM EDT Nurse Only Ancillary, [place] [id number] [place] [address] [place], Nurse Annual Wellness [address] [facility] [address] [place] [address] Scheduled Procedures Name Priority Associated Diagnoses Date/Ti me COLONOSCOPY FLEXIBLE PROXIMA L DIAGNOSTIC Recall Special screening for malignant neoplasms, colon Health Maintenance Due Date Last Done Comments Albumin/Creatinine Ratio 02/06/2023 02/06/2022, 09/12 COVID-19 Vaccine ( season) 2023 03/05/2023, 02/18/2022, 09/22/2021, Additional history exists Influenza Vaccine (FLU shot) (#1) 2024 02/05/2023, 01/23/2022, 02/03/2021, Additional history exists HOME BP CUFF VALIDATION YEARLY 02/23/2024 02/22/2023, 07/13/2021, 11/18/2019 GFR 05/09/2024 11/08/2023, 07/12, 06/19/2023, Additional history exists TSH 06/19/2024 06/19/2023, 10/12, 10/05/2022, Additional history exists Adult Wellness Visit 10/09/2024 10/10/2023, 09/24/2022, 08/22/2021, Additional history exists Depression Monitoring 10/09/2024 10/10/2023 CKD PHOS USE SMARTSET 90332 11/07/2024 06/2 12/2023, 06/19/2023, 06/06/2023, Additional history exists CKD HGB USE SMARTSET 26567 12/15/202412/15, 11/08/2023, 11/08/2023, Additional history exists DTaP,Tdap,and Td Vaccines (3 - Td or Tdap) 11/12/2033 11/13/2023, 11/12/2012, 10/07/2003, Additional history exists Pneumococcal Vaccine: 65+ Years Completed 03/17/2015, 10/17/2010 Zoster Vaccines Completed 03/21/2020, 12/2019, 12/22/2010 Nephrology Referral Discontinued 05/14/2023, 9 HPV (Gardasil) Vaccine Aged Out No lo nger eligible based on patient's age to complete this topic Hepatitis B Vaccine Aged Out No longe r eligible based on patient's age to complete this topic MENINGOCOCCAL (MENACTRA/MENVEO) Aged Out No longer eligible based on patient's age to complete this topic documented as of this encounter Medical Devices Implanted Type Area Petroleum Refining Equipment Operator Device Identifier Shelf Expiration Date Model / Serial / Lot Mesh Pelvic Gynamesh Gpsl - [id number] Implanted:Qty: 1 on 04/09/2007 at OR [place] N/A: Pelvis [employer] & BRAED[employer] 05/13/2011 GPSL / / [id number] Device Tvt [id number] - [id number] Implanted:Qty: 1 on 04/09/2007 at OR [place] N/A: Pelvis Gynecare 11/10/2009 [id number] / / [id number] Mesh [id number] Col [id number] - [id number] Implanted:Qty: 1 on 04/09/2007 at OR [place] N/A: Pelvis INACTIVE CR BARD : UROLOGICAL 06/13/2009 [id number] / / [id number] Lead Novus Bipolar 58cm - [id number] - [id number] Implanted:Qty: 1 on 07/16/2022 by Lawanda Sweet DO at OR [facility] Left: Heart [employer] : CRM 11/25/2022 5076-58 / [id number] / Description:RV Lead Novus Bipolar 52cm - [id number] - [id number] Implanted:Qty: 1 on 07/16/2022 by Lawanda Sweet, DO at OR [facility] Left: Heart [employer] : CRM 05/04/2024 5076-52 / [id number] / Description:RA Pacemaker Baggs Xt Dr Mri [facility] - [id number] - [id number] Implanted:Qty: 1 on 07/16/2022 by Lawanda Sweet, at OR [facility] Left: Chest [employer] 12/08/2023 [id number] / [id number] / Envelope Antibacterial Tyrx - [id number] Implanted:Qty: 1 on 07/16/2022 by Lawanda Sweet, at OR [facility] [employer] : CRM [id number] 03/15/2023 [id number] / / [id number] documented as of this encounter Advance Directives Documents on File Type Date Recorded Patient Staging Technician Expl anation Advance Directives and Living Will 12/18/2023 signed on 12/17/2023 ADVANCED DIRECTIVE Advance Directives and Living Will 04/25/2007 Power of Project Admin 04/25/2007 * Full Code (Latest Code Status on File) Date Activated Date Inactivated Comments 05/21/2022 5:44 PM 05/23/2022 4:06 PM This order re flects the patients wishes and were consensually agreed upon. Question Answer Comments Discussion of Advance Directives occurred with: Patient * Full Code Date Activated Date Inactivated Comments 06/11/2017 2:16 PM 06/13/2017 5:31 PM This order re flects the patients wishes and were consensually agreed upon. Question Answer Comments Discussion of Advance Directives occurred with: Patient Does the patient have a Living Will? No Does the patient have Health Care Power of Attor lizzette? No * Full Code Date Activated Date Inactivated Comments 04/26/2017 1:25 AM 05/24/2017 5:43 PM This order reflects the patients wishes and were consensually agreed upon. Question Answer Comments Discussion of Advance Directives occurred with: Patient Does the patient have a Living Will? No Does the patient have Health Care Power of Attor lizzette? No * Full Code Date Activated Date Inactivated Comments 04/23/2017 3:26 PM 04/25/2017 8:54 PM This order reflects the patients wishes and were consensually agreed upon. Question Answer Comments Discussion of Advance Directives occurred with: Not Discussed Does the patient have a Living Will? No Does the patient have Health Care Power of Attor lizzette? No * Full Code Date Activated Date Inactivated Comments 04/09/2007 6:29 PM 04/12/2007 12:50 AM Healthcare Agents on File Name Relationship Healthcare Agent Relationshi p Communication Tyron Lauren Spouse Health Care Repr esentative (appointed verbally by patient or by statute hierarchy) Marion Macario Adult Child Health Care Repr esentative (appointed verbally by patient or by statute hierarchy) Care Teams System Software Programmer Relationship Specialty Start Date End Date Mumtaz Cedeno MD [address] [facility] [address] [place] [address] PCP - General Family Medicine 06/18/18 documented as of this encounter
--- OUTSIDE RECORDS SUMMARY | 2023-12-23 09:42 | External Medical Summary | Summary of Care ---
Author Name Unknown Organization [facility] Address [address] [place] [address] Phone [phone] Care Team Providers Care Professor Of Fine Art Name Role Phone Mumtaz Cedeno MD Primary Care Provider Reason for Visit * Reason Onset Date Comments Lightheadedness 12/17/2023 Encounter Details Date Type Department Care Team (Late st Contact Info) Description 12/17/2023 Telephone Access Center, Central Region [address] [facility] *DO NOT REMOVE THIS DEPARTMENT* [place] [address] Services, Scheduling [address] [place] [address] Lightheadedness Allergies Active Allergy Reactions Criticality Noted Date Comments Adhesive Tape 11/06/2001 Clemastine Rash 08/05/2023 Phenylpropanolamine 01/05/2002 rash Nahum-D Piroxicam 11/05/2001 feldene--rash. Tolerated Ibuprofen with no rash. documented as of this encounter (statuses as of 12/18/2023) Medications Medication Sig Dispensed Refills Start Date [...] wheeze. 225 mL 1 01/23/2022 Active Nystatin 178035 UNIT/GM External Powder (Nystop) Apply topically to [...] MOUTH EVERY MORNING 90 Tablet 3 03/16/2023 4 Active Metoprolol Tartrate 25 MG Oral Tablet (Lopressor)Indicatio ns:Coronary artery disease involving diomede coronary artery of diomede heart without angina pectoris TAKE ONE TABLET BY MOUTH EVERY MORNING AND ONE TABLET BEFORE BEDTIME 180 Tablet 3 06/25/2023 5 Active FLUoxetine HCl 10 MG Oral Capsule (PROzac)Indications: Major depressive disorder with single episode, in full remission (HCC) TAKE ONE CAPSULE BY MOUTH EVERY DAY 90 Capsule 3 07/02/2023 5 Active Apixaban 5 MG Oral Tablet (Eliquis) [...] OR OTHER MEDS 100 Tablet 3 09/19/2023 Active Gabapentin 100 MG Oral Capsule (Neurontin) take 2 capsules by mouth every morning and take 2 capsules every day at noon and take 2 capsules every day at bedtime 540 Capsule 2 10/23/2023 Active Topiramate 100 MG Oral Tablet (Topamax) take 1 tablet by mouth twice daily 180 Tablet 4 10/24/2023 Active tiZANidine HCl 2 MG Oral Tablet (Zanaflex) Take 1 Tablet by mouth in the morning and 1 Tablet before bedtime. 11/07/2023 Active documented as of this encounter (statuses as of 12/18/2023) Active Problems Problem Noted Date Diagnosed Date [...] remission 11/01/2017 Coronary artery disease invo lving diomede coronary artery of diomede heart without angina pectoris 06/18/2017 History of [...] as of this encounter (statuses as of 12/18/2023) Resolved Problems Problem Noted Date Diagnosed Date Resolved Date Chronic migraine w/o aura w/ o status migrainosus, not intractable 03/14/2023 03/14/2023 Skin sensation disturbance 08/01/2022 0 11/01/2022 Last Assessment & Plan: She reported she just had EMG done by Dr. Quiroga BLE for tingling and numbness and will discuss [...] as of this encounter (statuses as of 12/18/2023) Immunizations Name Administration Dates Next Due COVID-19 mRNA, LNP-s, No Pre serve, 2-Dose Series (Sonavation) 02/08/2021,08/02/2020,07/07/2020 COVID-19, LNP-s, No Preserve , Jamie-sucrose, Ages 12+ (Pfizer) 09/22/2021 COVID-19, MRNA-LNP, 23-24, P F, 30 MCG/0.3 mL, 12 YRS AND ABOVE, IM ([employer]) 03/05/2023 Covid-19, Mrna, Lnp-s, Pf, B ivalent, 30 Mcg, IM, 12 yrs and above (Pfizer) 02/18/2022 HEP A - Hepatitis A (Adult > 18 yrs) 03/04/2000, 09/25/1999 Pneumococcal Conjugate Vacc, 13 Valent (Prevnar) 03/17/2015 [...] Split, I IV3, With Preserve, Inj 01/21/2015,01/26/2014,01/30/2013,01/23,02/09/2011,02/10/2010,04/11/2009 ,02/11/2008,02/10/2007,02/24/2006,02/11,03/23/1998 Seasonal Influenza, Trivalen t, Adjuvanted, 65+ yrs 02/10/2019 Seasonal Influenza, Trivalen t, High Dose, No Preserve, IM 02/04/2017 TD - Tetanus/Diptheria (ADULT) 10/07/2003,1994 TDAP (age 10 and older)(Boostrix) 11/13/2023,07/2012 Varicella [...] encounter Miscellaneous Notes * Telephone Encounter - Cassia Arreaga LPN - 12/18/2023 1:[address] Granado, I recommend reducing gabapentin to 2 capsules twice daily. Continue monitoring blood pressure and send a list of blood pressure readings in a week. Pt not at home per family member. Will call back later today. * Telephone Encounter - Cassia Arreaga LPN - 12/17/2023 4:15 PM EDT Call to pt. Pt reports that her B/P has been low for a couple of weeks. B/P mainly low in the evening. Evening HS B/P's, 72/50, 90/50, 108/66 Pt has been having lightheadedness when B/P is low. Pt currently taking amlodipine at noon, and metoprolol twice a day, valsartan at 5 pm. AM B/P's 114/62, 114/64, 112/62, 126/70 Please advise. * Telephone Encounter - Gill Weaver OSA - 12/17/2023 10:00 AM EDT Pt calling in stating she has been having low Bps at night and asking for advise 12/14 9:15pm 72/50 documented in this encounter Plan of Treatment Upcoming Encounters Date Type Department Care Team (Late st Contact Info) Description 12/30/2023 9:40 AM EDT Office Visit [address] [place] [address] Mumtaz Cedeno MD [address] [place] [address] [place] [address] 01/07/2024 11:00 AM EDT Office Visit Neurology [facility] [place] [address] [facility] [place] [address] Leon Lyles, [address] [facility] [place], [place] [address] 01/21/2024 11:20 AM EDT Office Visit Nephrology, [address] [address] Karl Granado MD [address] [place] [address] [phone] 01/28/2024 8:40 AM EDT Laboratory Laboratory Patient Service Center, [place] [address] [place] [phone] [place] [address] [place] [address] 02/04/2024 1:00 PM EDT Office Visit Hematology/Oncology, [facility] [address] [place] [address] Arlene Tucker CRNP [address] [place] [address] 02/13/2024 10:30 AM EDT Office Visit Cardiology, [place] [address] [place] [address] Janet William CRNP [address] [place] [address] 10/15/2024 9:00 AM EDT Nurse Only Ancillary, [place] [address] [place] [address] [place], Nurse Annual Wellness [address] [place] [address] [place] [address] Scheduled Procedures Name Priority Associated Diagnoses Date/Ti [...] Monitoring 10/09/2024 10/10/2023 CKD PHOS USE SMARTSET 99648 11/07/202410/12, 06/19/2023, 06/06/2023, Additional history exists CKD HGB USE SMARTSET 08976 12/15/202412/15, 11/08/2023, 11/08/2023, Additional history exists DTaP,Tdap,and [...] this encounter Medical Devices Implanted Type Area Director Of Safety Device Identifier Shelf Expiration Date Model / Serial / Lot Mesh Pelvic Gynamesh Gpsl - [id number] Implanted:Qty: 1 on 04/09/2007 at OR [facility] N/A: Pelvis BRAEDEN & BRAEDEN 05/13/2011 GPSL / / [id number] Device Tvt [id number] - [id number] Implanted:Qty: 1 on 04/09/2007 at OR [facility] N/A: Pelvis Gynecare 11/10/2009 [id number] / / [id number] Mesh [id number] Col [id number] - [id number] Implanted:Qty: 1 on 04/09/2007 at OR [facility] N/A: Pelvis INACTIVE CR BARD : UROLOGICAL 06/13/2009 [id number] / / [id number] Lead Novus Bipolar 58cm - [id number] - [id number] Implanted:Qty: 1 on 07/16/2022 by Lawanda Sweet, at OR [facility] Left: Heart [employer] : [facility] 11/25/2022 5076-58 / [id number] / Description:RV Lead Novus Bipolar 52cm - [id number] - [id number] Implanted:Qty: 1 on 07/16/2022 by Lawanda Sweet DO at OR [facility] Left: Heart [employer] : [facility] 05/04/2024 5076-52 / [id number] / Description:RA Pacemaker Inna Xt Dr Jimenez ls - [id number] - [id number] Implanted:Qty: 1 on 07/16/2022 by Lawanda Sweet DO at OR [facility] Left: Chest [employer] 12/08/2023 [id number] / [id number] / Envelope Antibacterial Tyrx - [id number] Implanted:Qty: 1 on 07/16/2022 by Lawanda Sweet DO at OR [facility] [employer] : [facility] [id number] 03/15/2023 CMRM6 122 / / [id number] documented as of this encounter Advance Directives Documents on File Type Date Recorded Patient Money Position Officer Expl anation Advance Directives and Living Will 12/18/2023 signed on 12/17/2023 ADVANCED DIRECTIVE Advance Directives and Living Will 04/25/2007 Power of Muck Boss 04/25/2007 * Full Code (Latest Code Status [...] Relationship Healthcare Agent Relationshi p Communication Tyron Aguilar Spouse Health Care Repr esentative (appointed verbally by patient or by statute hierarchy) Marion Macario Adult Child Health Care Repr esentative (appointed verbally by patient or by statute hierarchy) Care Teams Professor Of Fine Art Relationship Specialty Start Date End Date Mumtaz Cedeno MD [address] [place] [address] [place] [address] PCP - General Family Medicine 06/18/18 documented as of this encounter
--- OUTSIDE RECORDS SUMMARY | 2023-12-23 09:42 | External Medical Summary | Summary of Care ---
Author Name Unknown Organization [facility] Address [address] [place] [address] Phone [phone] Care Team Providers Care Telecom Manager Name Role Phone Mumtaz Cedeno MD Primary Care Provider Reason for Visit * Reason Onset Date Comments Lightheadedness 12/17/2023 Encounter Details Date Type Department Care Team (Late st Contact Info) Description 12/17/2023 Telephone Access Center, Central Region [address] [facility] *DO NOT REMOVE THIS DEPARTMENT* [place] [address] Services, Scheduling [address] [place] [address] Lightheadedness Allergies Active Allergy Reactions Criticality Noted [...] as needed for Dry eyes. 0 0 5 Active SOOTHE XP OP SOLN one drop TID Activ e Psyllium 28.3 % Oral Powder Take by mouth. Per pt she is taking two tsp daily Active Loratadine 10 MG Oral Capsule Take 1 Capsule by mouth in the morning. Active B-12 500 MCG Oral TabletIndications:B 12 deficiency Take 1 Tab by mouth daily. 30 Tab 11 0 Active Vitamin D 25 MCG (1000 UT) Oral Tablet Take 1 Tablet by mouth in the morning. Active Meclizine HCl 25 MG Oral Tablet (Antivert)Indicatio ns:Benign paroxysmal vertigo, unspecified laterality Take by mouth 1 Tablet as needed in the morning AND 1 Tablet as needed at noon AND 1 Tablet as needed in the evening for Dizziness. 30 Tablet 1 2 Active Albuterol Sulfate (2.5 MG/3ML) 0.083% Inhalation Nebulization Solution (Proventil)Indicati ons:Bronchitis, complicated Use one three milliliter vial of solution in nebulizer, as often as every four hours as needed for cough or wheeze. 225 mL 1 2 Active Nystatin 907486 UNIT/GM External Powder (Nystop) Apply topically to affected area 3 times a day. Apply to to areas of intertrigo under breast. Twice a day as needed. 30 g 3 Active Atorvastatin Calcium 10 MG Oral Tablet (Lipitor)Indication s:Dyslipidemia, goal LDL below 100 TAKE ONE TABLET BY MOUTH EVERY DAY 100 Tablet 3 3 Active Pantoprazole Sodium 40 MG Oral Tablet Delayed Release (Protonix)Indicatio ns:Gastroesophageal reflux disease with esophagitis TAKE ONE TABLET BY MOUTH EVERY MORNING 90 Tablet 3 3 03/15/20 24 Active Metoprolol Tartrate 25 MG Oral Tablet (Lopressor)Indicati ons:Coronary artery disease involving eastern shoshone coronary artery of eastern shoshone heart without angina pectoris TAKE ONE TABLET BY MOUTH EVERY MORNING AND ONE TABLET BEFORE BEDTIME 180 Tablet 3 4 06/24/19 25 Active FLUoxetine HCl 10 MG Oral Capsule (PROzac)Indications :Major depressive disorder with single episode, in full remission (HCC) TAKE ONE CAPSULE BY MOUTH EVERY DAY 90 Capsule 3 4 07/01/19 25 Active Apixaban 5 MG Oral Tablet (Eliquis) Take 1 Tablet by mouth in the morning and 1 Tablet before bedtime. 90 Tablet 3 4 Active amLODIPine Besylate 5 MG Oral Tablet (Norvasc)Indication s:Essential hypertension with goal blood pressure less than 150/90 Take 1 Tablet by mouth every evening. 90 Tablet 3 4 Active Valsartan 40 MG Oral Tablet (Diovan)Indications :Essential hypertension Take 1 Tablet by mouth at bedtime 90 Tablet 1 4 Active Emgality 120 MG/ML Subcutaneous Solution Auto-injector (Galcanezumab-gnlm) Inject 1 ml (120mg) under the skin once monthly 2 mL 3 4 Active Nurtec 75 MG Oral Tablet Disintegrating (Rimegepant Sulfate) Place 1 tablet above or under the tongue every other day. 48 Tablet 4 4 Active Levothyroxine Sodium 50 MCG Oral Tablet (Levoxyl) TAKE ONE TABLET BY MOUTH DAILY AT LEAST 30 MINUTES PRIOR TO BREAKFAST OR OTHER MEDS 100 Tablet 3 4 09/19/19 25 Active Topiramate 100 MG Oral Tablet (Topamax) take 1 tablet by mouth twice daily 180 Tablet 4 4 Active tiZANidine HCl 2 MG Oral Tablet (Zanaflex) Take 1 Tablet by mouth in the morning and 1 Tablet before bedtime. 4 Active Gabapentin 100 MG Oral Capsule (Neurontin) Take 2 Capsules by mouth 2 times a day. 4 Active Gabapentin 100 MG Oral Capsule (Neurontin) take 2 capsules by mouth every morning and take 2 capsules every day at noon and take 2 capsules every day at bedtime 540 Capsule 2 4 12/18/19 24 Discontinued documented as of this encounter (statuses as [...] remission 11/01/2017 Coronary artery disease invo lving eastern shoshone coronary artery of eastern shoshone heart without angina pectoris 06/18/2017 History of [...] mRNA, LNP-s, No Pre serve, 2-Dose Series (M[employer]ey) 02/08/2021,08/02/2020,07/07/2020 COVID-19, LNP-s, No Preserve , Jamie-sucrose, Ages 12+ (Pfizer) 09/22/2021 COVID-19, MRNA-LNP, 23-24, P F, 30 MCG/0.3 mL, 12 YRS AND ABOVE, IM ([employer]-Comirnaty) 03/05/2023 Covid-19, Mrna, Lnp-s, Pf, B ivalent, 30 Mcg, IM, 12 yrs and above (Moozey) 02/18/2022 HEP A - Hepatitis A (Adult [...] as of this encounter Miscellaneous Notes * Addendum Note - Alba Arreaga LPN - 12/18/2023 2:41 PM EDTAddended by: ALBA ARREAGA on: 12/18/2023 02:41 PM Modules accepted: Orders * Telephone Encounter - Alba Arreaga LPN - 12/18/2023 2:40 PM EDT Patient has been informed of below message and verbalized understanding. Med list updated. * Telephone Encounter - Alba Arreaga LPN - 12/18/2023 1:[address] Granado, I recommend reducing gabapentin to 2 capsules twice daily. Continue monitoring blood pressure and send a list of blood pressure readings in a week. Pt not at home per family member. Will call back later today. * Telephone Encounter - Alba Arreaga LPN - 12/17/2023 4:15 PM EDT [...] Description 12/30/2023 9:40 AM EDT Office Visit [place] [address] [address] [place] [address] [place] [phone] Mumtaz Cedeno MD [address] [facility] [address] [place] [address] 01/07/2024 11:00 AM EDT Office Visit Neurology Ste[facility] [place] [address] [place] [address] Leon Lyles, DO [address] [place] [address] 01/21/2024 11:20 AM EDT Office Visit Nephrology, [facility] [address] [place] [address] Karl Granado MD [address] [place] [address] 01/28/2024 8:40 AM EDT Laboratory Laboratory Patient Service [place] [address] [place] [phone] [address] [address] 02/04/2024 1:00 PM EDT Office Visit Hematology/Oncology, [address] [address] Arlene Tucker CRNP [address] [place] [address] 02/13/2024 10:30 AM EDT Office Visit Cardiology[address] [address] Janet William CRNP [address] [place] [address] 10/15/2024 9:00 AM EDT Nurse Only Ancillary, [place] [address] [place] [address] [place], [address] [place] [address] Scheduled Procedures Name Priority Associated Diagnoses Date/Ti [...] Monitoring 10/09/2024 10/10/2023 CKD PHOS USE SMARTSET 14041 11/07/202410/12, 06/19/2023, 06/06/2023, Additional history exists CKD HGB USE SMARTSET 43572 12/15/202412/15, 11/08/2023, 11/08/2023, Additional history exists DTaP,Tdap,and Td Vaccines (3 - Td or Tdap) 11/12/2033 11/13/2023, 11/12/2012, 10/07/2003, Additional history exists Pneumococcal Vaccine: 65+ Years Completed 03/17/2015, 10/17/2010 Zoster Vaccines Completed 03/21/2020, 0712/2019, 12/22/2010 Nephrology Referral Discontinued 05/14/2023, 9 HPV [...] this encounter Medical Devices Implanted Type Area Java Web Services Developer Device Identifier Shelf Expiration Date Model / Serial / Lot Mesh Pelvic Gynamesh Gpsl - [id number] Implanted:Qty: 1 on 04/09/2007 at OR [facility] N/A: Pelvis BRAEDEN & BRAEDEN 05/13/2011 GPSL / / [id number] Device Tvt [id number] - [id number] Implanted:Qty: 1 on 04/09/2007 at OR [facility] N/A: Pelvis Gynecare 11/10/2009 [id number] / / [id number] Mesh [id number] Col [id number] - [id number] Implanted:Qty: 1 on 04/09/2007 at OR [facility] N/A: Pelvis INACTIVE CR BARD : UROLOGICAL 06/13/2009 [id number] / / [id number] Lead Novus Bipolar 58cm - [id number] - [id number] Implanted:Qty: 1 on 07/16/2022 by Lawanda Sweet DO at OR [facility] Left: Heart [employer] : [place] 11/25/2022 5076-58 / [id number] / Description:RV Lead Novus Bipolar 52cm - [id number] - [id number] Implanted:Qty: 1 on 07/16/2022 by Lawanda Sweet DO at OR [facility] Left: Heart [employer] : [place] 05/04/2024 5076-52 / [id number] / Description:RA Pacemaker Screven Xt Dr Jimenez Wrls - [id number] - [id number] Implanted:Qty: 1 on 07/16/2022 by Lawanda Sweet DO at OR [facility] Left: Chest [employer] 12/08/2023 W1DR01 / [id number] / Envelope Antibacterial Tyrx - [id number] Implanted:Qty: 1 on 07/16/2022 by Lawanda Sweet DO at OR [facility] [employer] : [facility] [id number] 03/15/2023 CMR6 122 / / [id number] documented as of this encounter Advance Directives Documents on File Type Date Recorded Patient Pocket Builder Expl anation Advance Directives and Living Will 12/18/2023 signed on 12/17/2023 ADVANCED DIRECTIVE Advance Directives and Living Will 04/25/2007 Power of Clinical Informatics Specialist 04/25/2007 * Full Code (Latest Code Status [...] patient or by statute hierarchy) Care Teams Telecom Manager Relationship Specialty Start Date End Date Mumtaz Cedeno MD [address] [place] [address] [place] [address] PCP - General Family Medicine 06/18/18 documented as of this encounter
--- OUTSIDE RECORDS SUMMARY | 2023-12-23 09:43 | External Medical Summary | Summary of Care ---
Author Name Unknown Organization [facility] Address [address] [place] [address] Phone [phone] Care Team Providers Care Quill Picking Machine Operator Name Role Phone Mumtaz Cedeno MD Primary Care Provider Reason for Visit * Reason Onset Date Comments [facility]: Screening 12/18/2023 Encounter Details Date Type Department Care Team (Late st Contact Info) Description 12/18/2023 Telephone [facility], [facility] [address] [facility] [place] [address] Region, Nurse [facility] [address] [facility] [place] [address] [facility]: Screening Allergies Active Allergy Reactions Criticality Noted Date [...] wheeze. 225 mL 1 01/23/2022 Active Nystatin 755618 UNIT/GM External Powder (Nystop) Apply topically to [...] Oral Tablet (Lopressor)Indicatio ns:Coronary artery disease involving teller coronary artery of teller heart without angina pectoris TAKE ONE TABLET [...] remission 11/01/2017 Coronary artery disease invo lving teller coronary artery of teller heart without angina pectoris 06/18/2017 History of [...] mRNA, LNP-s, No Pre serve, 2-Dose Series ([employer]) 02/08/2021,08/02/2020,07/07/2020 COVID-19, LNP-s, No Preserve , Jamie-sucrose, Ages 12+ (Pfizer) 09/22/2021 COVID-19, MRNA-LNP, 23-24, P F, 30 MCG/0.3 mL, 12 YRS AND ABOVE, IM ([employer]-Comirnaty) 03/05/2023 Covid-19, Mrna, Lnp-s, Pf, B ivalent, [...] encounter Miscellaneous Notes * Telephone Encounter - Breana Morocho LPN - 12/18/2023 1:25 PM EDT Eugenia Aguilar was referred as a potential candidate for enrollment for [facility]. A review of this chart was completed and: Eugenia meets criteria for [facility]. Jump to Initiation Referring care team was notified via : Epic communication Breana Morocho LPN [facility] 12/18/2023,1:25 PM documented in this encounter Plan of Treatment Upcoming Encounters Date Type Department Care Team (Late st Contact Info) Description 12/30/2023 9:40 AM EDT Office Visit [address] [place] [address] Mumtaz Cedeno MD [address] [place] [address] [place] [address] 01/07/2024 11:00 AM EDT Office Visit Neurology Zoraida Gonzalez [place] [address] [facility] [place] [address] Leon Lyles, DO [address] [facility] [place] [address] 01/21/2024 11:20 AM EDT Office Visit Nephrology, [address] [address] Karl Granado MD [address] [place] [address] 01/28/2024 8:40 AM EDT Laboratory Laboratory Patient Service [address] [place] [phone] [address] [address] 02/04/2024 1:00 PM EDT Office Visit Hematology/Oncology, [address] [address] Arlene Tucker CRNP [address] [place] [address] 02/13/2024 10:30 AM EDT Office Visit Cardiology, [address] [id number] Janet William CRNP [address] [place] [address] 10/15/2024 9:00 AM EDT Nurse Only Ancillary, [address] [place] [address] [place], Nurse Annual Wellness [address] [facility] [address] [place] [address] Scheduled Procedures Name Priority Associated Diagnoses Date/Ti [...] Monitoring 10/09/2024 10/10/2023 CKD PHOS USE SMARTSET 14793 11/07/202410/12, 06/19/2023, 06/06/2023, Additional history exists CKD HGB USE SMARTSET 30307 12/15/202412/15, 11/08/2023, 11/08/2023, Additional history exists DTaP,Tdap,and [...] this encounter Medical Devices Implanted Type Area Flat Knitter Device Identifier Shelf Expiration Date Model / Serial / Lot Mesh Pelvic Gynamesh Gpsl - [id number] Implanted:Qty: 1 on 04/09/[place] [facility] [place]A: Pelvis BRAEDEN & BRAEDEN 05/13/2011 GPSL / / [id number] Device Tvt [id number] - [id number] Implanted:Qty: 1 on 04/09/2007 [place] [facility] N/A: Pelvis Gynecare 11/10/2009 [id number] / / [id number] Mesh [id number] Col [id number] - [id number] Implanted:Qty: 1 on 04/09/2007 [place] [facility] N/A: Pelvis INACTIVE CR BARD : UROLOGICAL 06/13/2009 [id number] / / [id number] Lead Novus Bipolar 58cm - [id number] - [id number] Implanted:Qty: 1 on 07/16/2022 by Lawanda Sweet DO at OR [facility] Left: Heart [employer] : CRM 11/25/2022 5076-58 / [id number] / Description:RV Lead Novus Bipolar 52cm - [id number] - [id number] Implanted:Qty: 1 on 07/16/2022 by Lawanda Sweet DO at OR [facility] Left: Heart [employer] : CRM 05/04/2024 5076-52 / [id number] / Description:RA Pacemaker Inna Xt Dr Jimenez ls - [id number] - [id number] Implanted:Qty: 1 on 07/16/2022 by Lawanda Sweet DO at OR [facility] Left: Chest [employer] 12/08/2023 W1DR01 / [id number] / Envelope Antibacterial Tyrx - [id number] Implanted:Qty: 1 on 07/16/2022 by Lawanda Sweet DO at OR [facility] [employer] : CRM [id number] 03/15/2023 [facility] 122 / / [id number] documented as of this encounter Advance Directives Documents on File Type Date Recorded Patient Catalyst Supervisor Expl anation Advance Directives and Living Will 12/18/2023 signed on 12/17/2023 ADVANCED DIRECTIVE Advance Directives and Living Will 04/25/2007 Power of Storage Receipt Poster 04/25/2007 * Full Code (Latest Code Status [...] patient or by statute hierarchy) Care Teams Quill Picking Machine Operator Relationship Specialty Start Date End Date Mumtaz Cedeno MD [address] [facility] [place] [address] PCP - General Family Medicine 06/18/18 documented as of this encounter
--- OUTSIDE RECORDS SUMMARY | 2023-12-23 09:43 | External Medical Summary | Summary of Care ---
Author Name Unknown Organization [facility] Address [address] [place] [address] Phone [phone] Care Team Providers Care Directional Survey Drafter Name Role Phone Mumtaz Cedeno MD Primary Care Provider Encounter Details Date Type Department Care Team (Late st Contact Info) Description 12/17/2023 Telephone Access Center, Central Region [address] [facility] *DO NOT REMOVE THIS DEPARTMENT* [place] [address] Services, Scheduling [address] [place] [address] Allergies Active Allergy Reactions Criticality Noted Date Comments Adhesive Tape 11/06/2001 Clemastine Rash 08/05/2023 Phenylpropanolamine 01/05/2002 rash Nahum-D Piroxicam 11/05/2001 feldene--rash. Tolerated Ibuprofen with no rash. documented as of this encounter (statuses as of 12/17/2023) Medications Medication Sig Dispensed Refills Start Date [...] wheeze. 225 mL 1 01/23/2022 Active Nystatin 159118 UNIT/GM External Powder (Nystop) Apply topically to [...] Oral Tablet (Lopressor)Indicatio ns:Coronary artery disease involving [place] coronary artery of [place] heart without angina pectoris TAKE ONE TABLET [...] as of this encounter (statuses as of 12/17/2023) Active Problems Problem Noted Date Diagnosed Date [...] remission 11/01/2017 Coronary artery disease invo lving [place] coronary artery of [place] heart without angina pectoris 06/18/2017 History of [...] as of this encounter (statuses as of 12/17/2023) Resolved Problems Problem Noted Date Diagnosed Date [...] as of this encounter (statuses as of 12/17/2023) Immunizations Name Administration Dates Next Due COVID-19 mRNA, LNP-s, No Pre serve, 2-Dose Series ([place]) 02/08/2021,08/02/2020,07/07/2020 COVID-19, LNP-s, No Preserve , Jamie-sucrose, Ages 12+ (Pfizer) 09/22/2021 COVID-19, MRNA-LNP, 23-24, P F, 30 MCG/0.3 mL, 12 YRS AND ABOVE, IM ([facility]) 03/05/2023 Covid-19, Mrna, Lnp-s, Pf, B ivalent, [...] encounter Miscellaneous Notes * Telephone Encounter - Gill Weaver OSA - 12/17/2023 10:00 AM EDT Pt calling in stating she has been having low Bps at night and asking for advise 12/14 9:15pm 72/50 documented in this encounter Plan of Treatment Upcoming Encounters Date Type Department Care Team (Late st Contact Info) Description 12/30/2023 9:40 AM EDT Office Visit [place] [address] [address] [place] [address] [place] [address] Mumtaz Cedeno MD [facility] [address] [place] [address] [place] [address] 01/07/2024 11:00 AM EDT Office Visit Neurology Zoraida Gonzalez [place] [address] [place], [place] [address] Leon Bermudez, DO [address] [place] [address] 01/21/2024 11:20 AM EDT Office Visit Nephrology, [address] [address] Karl Granado MD [address] [place] [address] 01/28/2024 8:40 AM EDT Laboratory [facility], [place] [address] [place] [phone] [address] 02/04/2024 1:00 PM EDT Office Visit Hematology/Oncology, [address] [address] Arlene Tucker CRNP [address] [place] [address] 02/13/2024 10:30 AM EDT Office Visit Cardiology[address] [address] Janet William CRNP [address] [place] [address] [phone] 10/15/2024 9:00 AM EDT Nurse Only Ancillary, [address] [place] [address] [place], Nurse Annual Wellness [address] [place] [address] [place] [address] [phone] Scheduled Procedures Name Priority Associated Diagnoses Date/Ti [...] history exists Depression Monitoring 10/09/2024 10/10/2023 CKD HGB USE SMARTSET 59884 11/07/202411/07, 11/08/2023, 08/06/2023, Additional history exists CKD PHOS USE SMARTSET 48991 11/07/202410/12, 06/19/2023, 06/06/2023, Additional history exists DTaP,Tdap,and Td Vaccines (3 - Td or Tdap) 11/12/2033 11/13/2023, 11/12/2012, 10/07/2003, Additional history exists Pneumococcal Vaccine: 65+ Years Completed 03/17/2015, 10/17/2010 Zoster Vaccines Completed 03/21/2020, 07/0 12/2019, 12/22/2010 Nephrology Referral Discontinued 05/14/2023, 9 [...] this encounter Medical Devices Implanted Type Area Slitter And Cutter Operator Device Identifier Shelf Expiration Date Model / Serial / Lot Mesh Pelvic Gynamesh Gpsl - [id number] Implanted:Qty: 1 on 04/09/2007 at OR [facility] [place] [place] N/A: Pelvis [employer] & BRAEDEN 05/13/2011 GPSL / / [id number] Device Tvt [id number] - [id number] Implanted:Qty: 1 on 04/09/2007 at OR [facility] [place] [place] N/A: Pelvis Gynecare 11/10/2009 [id number] / / [id number] Mesh [id number] Col [id number] - [id number] Implanted:Qty: 1 on 04/09/2007 at OR [facility] [place] [place] N/A: Pelvis INACTIVE CR BARD : UROLOGICAL 06/13/2009 [id number] / / [id number] Lead Novus Bipolar 58cm - [id number] - [id number] Implanted:Qty: 1 on 07/16/2022 by Lawanda Sweet DO at OR [facility] Left: Heart [employer] : VERONICA 11/25/2022 5076-58 / [id number] / Description:RV Lead Novus Bipolar 52cm - [id number] - [id number] Implanted:Qty: 1 on 07/16/2022 by Lawanda Sweet DO at OR [facility] Left: Heart [employer] : [facility] 05/04/2024 5076-52 / [id number] / Description:RA Pacemaker Eugenio Saenz Xt Dr Jimenez Wrls - [id number] - [id number] Implanted:Qty: 1 on 07/16/2022 by Lawanda Sweet DO at OR [facility] Left: Chest [employer] 12/08/2023 [id number] / [id number] / Envelope Antibacterial Tyrx - [id number] Implanted:Qty: 1 on 07/16/2022 by Lawanda Sweet DO at OR [facility] [employer] : [facility] [id number] 03/15/2023 CMR6 122 / / [id number] documented as of this encounter Advance Directives Documents on File Type Date Recorded Patient Internal Controls Analyst Expl anation Advance Directives and Living Will 04/25/2007 Power of Food And Beverage Analyst 04/25/2007 * Full Code (Latest Code Status [...] Healthcare Agent Relationshi p Communication Tyron Aguilar [facility] Health Care Repr esentative (appointed verbally by patient or by statute hierarchy) Marion Macario Adult Child Health Care Repr esentative (appointed verbally by patient or by statute hierarchy) Care Teams Directional Survey Drafter Relationship Specialty Start Date End Date Mumtaz Cedeno MD [address] [facility] [address] [place] [address] PCP - General Family Medicine 06/18/18 documented as of this encounter
--- OUTSIDE RECORDS SUMMARY | 2023-12-23 09:43 | External Medical Summary | Summary of Care ---
Author Name Unknown Organization [facility] Address [address] [place] [address] Phone [phone] Care Team Providers Care Show Horse Driver Name Role Phone Mumtaz Cedeno MD Primary Care Provider Reason for Visit * Reason Onset Date Comments Lightheadedness 12/17/2023 Encounter Details Date Type Department Care Team (Late st Contact Info) Description 12/17/2023 Telephone Access Center, Central Region [address] [facility] *DO NOT REMOVE THIS DEPARTMENT* [place] [address] Services, Scheduling [address] [place] [address] Lightheadedness Allergies Active Allergy Reactions Criticality Noted [...] wheeze. 225 mL 1 01/23/2022 Active Nystatin 654639 UNIT/GM External Powder (Nystop) Apply topically to [...] Oral Tablet (Lopressor)Indicatio ns:Coronary artery disease involving [place] coronary artery of [place] heart without angina pectoris TAKE ONE TABLET [...] remission 11/01/2017 Coronary artery disease invo lving [place] coronary artery of [place] heart without angina pectoris 06/18/2017 History of [...] mRNA, LNP-s, No Pre serve, 2-Dose Series (Boxed) 02/08/2021,08/02/2020,07/07/2020 COVID-19, LNP-s, No Preserve , Jamie-sucrose, Ages 12+ (Pfizer) 09/22/2021 COVID-19, MRNA-LNP, 23-24, P F, 30 MCG/0.3 mL, 12 YRS AND ABOVE, IM ([facility]) 03/05/2023 Covid-19, Mrna, Lnp-s, Pf, B ivalent, [...] Description 12/30/2023 9:40 AM EDT Office Visit [address] [place] [address] Mumtaz Cedeno MD [address] [place] [address] [place] [address] 01/07/2024 11:00 AM EDT Office Visit [facility]rology [facility] [address] [place] [address] Leon Lyles, DO [address] [place] [address] 01/21/2024 11:20 AM EDT Office Visit Nephrology, [address] [address] Karl Granado MD [address] [place] [address] 01/28/2024 8:40 AM EDT Laboratory [facility] [address] [place] [phone] [place] [address] [address] [place] [address] 02/04/2024 1:00 PM EDT Office Visit Hematology/Oncology, [address] [address] Arlene Tucker [facility] [address] [facility] [place] [address] 02/13/2024 10:30 AM EDT Office Visit Cardiology, [place] [address] [place] [address] Janet William [facility]NP [address] [facility] [place] [address] 10/15/2024 9:00 AM EDT Nurse Only Ancillary, [place] [id number] [place] [address] [place], Nurse Annual Wellness [address] [facility] [address] [place] [address] Scheduled Procedures Name Priority Associated Diagnoses Date/Ti [...] Monitoring 10/09/2024 10/10/2023 CKD HGB USE SMARTSET 07798 11/07/2024 06/28 /2024, 11/08/2023, 08/06/2023, Additional history exists CKD PHOS USE SMARTSET 41702 11/07/202410/12, 06/19/2023, 06/06/2023, Additional history exists DTaP,Tdap,and [...] this encounter Medical Devices Implanted Type Area Special Education Coordinator Device Identifier Shelf Expiration Date Model / Serial / Lot Mesh Pelvic Gynamesh Gpsl - [id number] Implanted:Qty: 1 on 04/09/2007 at OR [facility] [place] N/A: Pelvis [employer] BRAED[employer] 05/13/2011 GPSL / / [id number] Device Tvt [id number] - [id number] Implanted:Qty: 1 on 04/09/2007 at [place] [facility] [place] N/A: Pelvis Gynecare 11/10/2009 [id number] / / [id number] Mesh [id number] Col [id number] - [id number] Implanted:Qty: 1 on 04/09/2007 at OR [facility] [place] N/A: Pelvis INACTIVE CR BARD : UROLOGICAL 06/13/2009 [id number] / / [id number] Lead Novus Bipolar 58cm - [id number] - [id number] Implanted:Qty: 1 on 07/16/2022 by Lawanda Sweet DO at OR [facility] Left: Heart [employer] : CRM 11/25/2022 5076-58 / [id number] / Description:RV Lead Novus Bipolar 52cm - [id number] - [id number] Implanted:Qty: 1 on 07/16/2022 by Lawanda Sweet, DO at OR [facility] Left: Heart [employer] : VERONICA 05/04/2024 5076-52 / [id number] / Description:RA Pacemaker [place] Xt Dr Jimenez ls - [id number] - [id number] Implanted:Qty: 1 on 07/16/2022 by Lawanda Sweet, at OR [facility] Left: Chest [employer] 12/08/2023 [id number] / [id number] / Envelope Antibacterial Tyrx - [id number] Implanted:Qty: 1 on 07/16/2022 by Lawanda Sweet, DO at OR [facility] [employer] : [facility] [id number] 03/15/2023 CMRM6 122 / / [id number] documented as of this encounter Advance Directives Documents on File Type Date Recorded Patient Credit Assessment Analyst Expl anation Advance Directives and Living Will 04/25/2007 Power of Manager Dialysis 04/25/2007 * Full Code (Latest Code Status [...] Name Relationship Healthcare Agent Relationshi p Communication Tryon Aguilar Spouse Health Care Repr esentative (appointed verbally by patient or by statute hierarchy) Marion Macario Adult Child Health Care Repr esentative (appointed verbally by patient or by statute hierarchy) Care Teams Show Horse Driver Relationship Specialty Start Date End Date Mumtaz Cedeno MD [address] [facility] [address] [facility] [place] [address] PCP - General Family Medicine 06/18/18 documented as of this encounter
--- OUTSIDE RECORDS SUMMARY | 2023-12-23 09:43 | External Medical Summary | Summary of Care ---
Author Name Unknown Organization [facility] Address [address] [place] [address] Phone [phone] Care Team Providers Care Language And Literature Division Chair Name Role Phone Mumtaz Cedeno MD Primary Care Provider Reason for Visit * Reason Comments pre-op exam Pt arrives today for Pre Op clearance for lower back surgery on Friday 12/22. Encounter Details Date Type Department Care Team (Late st Contact Info) Description 12/17/2023 7:40 AM EDT Office Visit [place] [address] [place], [place] [id number] Rosetta Woodruff, PA-C [facility] [address] [place], [place] [phone] Preop general physical exam*; Lumbar radiculopathy; Spondylolisthesis of lumbar region Allergies Active Allergy Reactions Criticality Noted Date [...] wheeze. 225 mL 1 01/23/2022 Active Nystatin 304138 UNIT/GM External Powder (Nystop) Apply topically to [...] Oral Tablet (Lopressor)Indicatio ns:Coronary artery disease involving nikolski coronary artery of nikolski heart without angina pectoris TAKE ONE TABLET [...] remission 11/01/2017 Coronary artery disease invo lving nikolski coronary artery of nikolski heart without angina pectoris 06/18/2017 History of [...] mRNA, LNP-s, No Pre serve, 2-Dose Series (Newzstand) 02/08/2021,08/02/2020,07/07/2020 COVID-19, LNP-s, No Preserve , Jamie-sucrose, Ages 12+ (Pfizer) 09/22/2021 COVID-19, MRNA-LNP, 23-24, P F, 30 MCG/0.3 mL, 12 YRS AND ABOVE, IM (Exerscrip-Comirnaty) 03/05/2023 Covid-19, Mrna, Lnp-s, Pf, B ivalent, 30 Mcg, IM, 12 yrs and above (Newzstand) 02/18/2022 Pneumococcal Conjugate Vacc, 13 Valent (Prevnar) [...] on file documented as of this encounter Last Filed Vital Signs Vital Sign Reading Time Taken Comments Blood Pressure 126/70 12/17/2023 7:51 AM EDT Pulse 60 12/17/2023 7:51 AM EDT Temperature 36.1 C (97 F) 12/17/2023 7:51 AM EDT Respiratory Rate 12 12/17/2023 7:51 AM EDT Oxygen Saturation 98% 12/17/2023 7:51 AM EDT Inhaled Oxygen Concentration - - Weight 84.7 kg (186 lb 12.8 oz) 12/17/2023 7:51 AM EDT Height 166.4 cm (5' 5.5") 12/17/2023 7:51 AM EDT Body Mass Index 30.61 12/17/2023 7:51 AM EDT documented in this encounter Functional Status Functional Status Response [...] No 05/21/2022 documented as of this encounter Progress Notes * Rosetta Woodruff PA-C - 12/17/2023 7:59 AM EDT Images from the original note were not included. Pre-Operative Medical Evaluation Nursing Notes: Bessie Givens, [facility] 12/17/23 0753 Signed Chief Complaint Patient presents with pre-op exam Pt arrives today for Pre Op clearance for lower back surgery on Friday 12/22. Procedure Information Type of Surgery: Lumbar decompression at L2-3 with fusion connect to previous hardware. Referring Physician / Surgeon: Carine Date of procedure: 12/23/23 Brief History of Present Illness: 78 yo female with chronic LBP. Review of Systems: Constitutional ROS: No change in weight, No weakness, No fatigue, and No fevers, sweats, or chills Eye ROS: No recent significant change in vision, No eye pain, redness, discharge, and No diplopia Ear ROS: No ear pain, No drainage, No tinnitus or vertigo, and No recent change in hearing Nose ROS: No history of frequent colds or sinusitis, No nasal stuffiness, No history of Hay Fever, and No significant epistaxis Mouth/Throat ROS: No bleeding gums, No thrush, or No sore throat Neck ROS: No lumps or masses, No swollen glands, No recent swelling in thyroid area, and No significant pain in neck Pulmonary ROS: No cough, sputum, or hemoptysis, No wheezing, No rales, No shortness of breath, and No recent change in breathing Cardiovascular ROS: No chest pain, No shortness of breath, No dyspnea on exertion, No orthopnea, Noparoxysmal nocturnal dyspnea, No edema, No palpitations, and No syncope Gastrointestinal ROS: No abdominal pain, No change in bowel habits, No significant heartburn, No significant change in appetite, No nausea, vomiting, diarrhea, or constipation, No hematemesis, No blood in stools or black tarry stools, No abdominal bloating or early satiety, and No dysphagia Genito-Urinary Female ROS: No dysuria, No frequency, No incontinence, and No urgency Musculoskeletal/Extremities ROS: No pain, redness or swelling on the joints Skin/Integumentary ROS: No edema, No rash, and No itching Psychiatric ROS: No depression and No anxiety Medical History Problem List: Labile blood pressure (06/25/2023) Diffuse large B-cell lymphoma (HCC) (06/25/2023) Major depressive disorder, single episode, moderate (HCC) (06/25/2023) Intractable chronic migraine without aura and without status migrainosus (06/25/2023) Chronic migraine w/o aura w/o status migrainosus, not intractable (06/2022) Migraine without status migrainosus, not intractable (09/30/2022) Other complicated headache syndrome (08/01/2022) Skin sensation disturbance (08/01/2022) 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) TGA (transient global amnesia) (06/06/2022) Cerebral atherosclerosis (06/06/2022) Adjustment disorder with mixed anxiety and depressed mood (05/30/2022) Hypertensive encephalopathy (05/30/2022) Uncontrolled hypertension (05/21/2022) Episode of confusion (05/21/2022) Hyperparathyroidism, secondary renal (HCC) (06/12/2021) Stage 3b chronic kidney disease (HCC) (06/12/2021) Hypertensive kidney disease with stage 3b chronic kidney disease (HCC) (06/12/2021) Hypertensive kidney disease with chronic kidney disease stage IV (HCC) (02/20/2021) Hyperparathyroidism (HCC) (07/26/2020) Stage 4 chronic kidney disease (HCC) (07/26/2020) Thrombophilia (HCC) (06/09/2019) Gastro-esophageal reflux disease without esophagitis (06/09/2019) 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) INFORMATION (02/10/2018) Thrombocytopenia (HCC) (11/01/2017) Hyperprolactinemia (HCC) (11/01/2017) Major depressive disorder with single episode, in full remission (HCC) (11/01/2017) Encounter for antineoplastic chemotherapy (06/25/2017) 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) Coronary artery disease involving nikolski coronary artery of nikolski heart without angina pectoris (06/18/2017) Encounter for antineoplastic chemotherapy (06/13/2017) Need for prophylactic isolation (06/13/2017) SERJIO (acute kidney injury) (HCC) (06/13/2017) History of DVT of lower extremity (06/13/2017) Febrile neutropenia (HCC) (05/23/2017) MRSA bacteremia (05/23/2017) Encounter for antineoplastic chemotherapy (05/23/2017) Secondary hypothyroidism (05/01/2017) History of diffuse large B-cell lymphoma (05/01/2017) Acute hyponatremia (04/23/2017) Inguinal lymphadenopathy (04/23/2017) Retroperitoneal lymphadenopathy (04/23/2017) Pain and swelling of right lower leg (04/23/2017) Dehydration (04/23/2017) Nausea and vomiting (04/23/2017) Drug-induced constipation (04/23/2017) Transaminitis (04/23/2017) Hypertension, renal disease, stage 1-4 or unspecified chronic kidney disease (03/21/2017) History of bilateral carpal tunnel release (03/21/2017) Fuchs' corneal dystrophy (03/20/2016) Cataract (03/20/2016) Essential hypertension with goal blood pressure less than 150/90 () Benign hypertension with CKD (chronic kidney disease) stage III ([facility]) (09/04/2013) Urge incontinence (04/17/2013) Dyslipidemia, goal LDL below 100 (04/10/2012) Adjustment disorder with depressed mood (10/17/2010) ADVANCE DIRECTIVE INFORMATION (06/03/2009) Dyslipidemia, goal LDL below 100 (04/21/2009) Kidney disease, chronic, stage III (GFR 30-59 ml/min) ([facility]) (2008) Esophageal reflux (11/10/2008) Female stress incontinence (11/10/2008) Examination following surgery (04/09/2007) Cystocele, lateral (03/19/2007) Allergic rhinitis (03/02/2004) intradermal nevus with a desmoplastic component left deltoid 2000 (03/18/2002) Other viral warts (03/18/2002) PURE HYPERCHOLESTEROLEM Need for prophylactic hormone replacement therapy (postmenopausal) Major depressive disorder, recurrent episode, mild ([facility]) ELEV BL PRES W-O HYPERTN Myalgia CERVICAL DISC DEGEN Carpal tunnel syndrome Current Medications tiZANidine HCl 2 MG Oral Tablet (Zanaflex), 2 mg, Oral, BID (0900,2100) Topiramate 100 MG Oral Tablet (Topamax), take 1 tablet by mouth twice daily Gabapentin 100 MG Oral Capsule (Neurontin), take 2 capsules by mouth every morning and take 2 capsules every day at noon and take 2 capsules every day at bedtime Levothyroxine Sodium 50 MCG Oral Tablet (Levoxyl), TAKE ONE TABLET BY MOUTH DAILY AT LEAST 30 MINUTES PRIOR TO BREAKFAST OR OTHER MEDS Nurtec 75 MG Oral Tablet Disintegrating (Rimegepant Sulfate), 1 Tablet, Oral, Every other day Emgality 120 MG/ML Subcutaneous Solution Auto-injector (Galcanezumab-gn), Inject 1 ml (120mg) under the skin once monthly Valsartan 40 MG Oral Tablet (Diovan), 40 mg, Oral, HS amLODIPine Besylate 5 MG Oral Tablet (Norvasc), 5 mg, Oral, Daily 1900 Apixaban 5 MG Oral Tablet (Eliquis), 5 mg, Oral, BID(AM/PM) FLUoxetine HCl 10 MG Oral Capsule (PROzac), TAKE ONE CAPSULE BY MOUTH EVERY DAY Metoprolol Tartrate 25 MG Oral Tablet (Lopressor), TAKE ONE TABLET BY MOUTH EVERY MORNING AND ONE TABLET BEFORE BEDTIME Pantoprazole Sodium 40 MG Oral Tablet Delayed Release (Protonix), TAKE ONE TABLET BY MOUTH EVERY MORNING Atorvastatin Calcium 10 MG Oral Tablet (Lipitor), TAKE ONE TABLET BY MOUTH EVERY DAY Nystatin 287241 UNIT/GM External Powder (Nystop), Apply topically to affected area 3 times a day. Apply to to areas of intertrigo under breast. Twice a day as needed. Albuterol Sulfate (2.5 MG/3ML) 0.083% Inhalation Nebulization Solution (Proventil), Use one three milliliter vial of solution in nebulizer, as often as every four hours as needed for cough or wheeze. Meclizine HCl 25 MG Oral Tablet (Antivert), 25 mg, Oral, TID PRN Vitamin D 25 MCG (1000 UT) Oral Tablet, 1 Tablet, Oral, Daily(AM) B-12 500 MCG Oral Tablet, 1 Tablet, Oral, Daily(AM) Loratadine 10 MG Oral Capsule, 10 mg, Oral, Daily(AM) Psyllium 28.3 % Oral Powder, Take by mouth. Per pt she is taking two tsp daily SOOTHE XP OP SOLN, one drop TID ISAURA 128 5 % OP SOLN, Instill 1 Drop into both eyes as needed for Dry eyes. Allergies: Adhesive tape, Clemastine, Phenylpropanolamine, and Piroxicam Past Medical History: has a past medical history of Allergic rhinitis (03/02/2004), Cardiomyopathy (HCC) (06/18/2017), Carpal tunnel syndrome, Cataract (03/20/2016), Chondromalacia patellae, Cystocele, lateral (03/19/2007), Degeneration of cervical intervertebral disc, Diffuse cystic mastopathy, Drug-induced constipation (), Dyslipidemia, goal LDL below 100 (04/10/2012), Encounter for antineoplastic chemotherapy(06/13/2017), Esophageal reflux (11/10/2008), Female stress incontinence (11/10/2008), Fuchs' corneal dystrophy (03/20/2016), History of bilateral carpal tunnel release (03/21/2017), HTN, goal below 150/90 (01/26/2014), Hypertension, renal disease, stage 1-4 or unspecified chronic kidney disease (03/21/2017), Lymphoma (HCC), Major depressive disorder, recurrent episode, mild (HCC), Medial epicondylitis, MRSA bacteremia (05/23/2017), Myalgia and myositis, Need for prophylactic hormone replacement therapy (postmenopausal), Transaminitis (04/23/2017), Urge incontinence (04/17/2013), and Viral warts, unspecified. Past Surgical History: has a past surgical history that includes total hysterectomy (1972); removal of ovary/oviduct(s) (1972); information; removal of appendix; remove gallbladder; information; information; colonoscopy, remove lesion (10/26/2004); upper endoscopy gi referral op (02/21/2006); carpal tunnel surgery; suspension of vagina (04/09/2007); paravaginal defect, open abdominal repair (04/09/2007); repair of bowel pouch (04/09/2007); repair rectum & vagina, rectocele (04/09/2007); repair bladder defect (04/09/2007); Colonoscopy, Diagnostic (Rectum) (N/A, 10/28/2014); removal of groin lymph nodes (Right, 04/26/2017); remov tom riri cath w/o port (N/A, 10/16/2017); EGD, Flexible, Diagnostic (N/A, 01/13/2019); information (Bilateral, 2019); information (Left, 2019); information (04/2018); and Insert/Replace Pacemaker,Atrial/Ventricular (Left, 07/16/2022). Social History: reports that she has never smoked. She has never used smokeless tobacco. She reports that she does not drink alcohol and does not use drugs. Family History: family history includes Cancer in her brother, brother, mother, and sister; Diabetes in her mother;Heart Disorder in her grandfather (maternal), mother, and sister; Hypertension in her father; Stroke in her father, grandmother (maternal), and mother. Anesthesia History Type of Anesthesia: General Endotracheal and Caudal block Anesthesia reaction: No History of surgical complications: Postop laryngeal edema Personal history of venous thromboembolic disease: No Physical Exam Vitals: 12/17/23 0751 Temp: 36.1 C (97 F) Pulse: 60 Resp: 12 SpO2: 98% BP: 126/70 BMI: 30.6 General: alert, healthy, and no distress Eye Exam: PERRL, extraocular movements intact, conjunctiva are pink and non- injected, sclera clear Ears: External ears normal, Canals clear, TM's Normal Nose: no mucosal erythema, no mucosal edema, no purulent discharge Oropharynx: no exudate, no erythema, lips, buccal mucosa, and tongue normal, and mucous membranes are moist Neck: supple, no adenopathy, no bruits, thyroid normal size, non-tender, without nodularity Heart: regular rate & rhythm, no murmur, and no gallops Lungs: chest symmetric with normal AP diameter, no chest deformities noted, no chest wall tenderness, lungs clear to auscultation Pulses: radial=2/4, posterior tibial=2/4 Abdomen: abdomen soft, non-tender, and normal bowel sounds Extremities: less than 2 second capillary refill, no edema, no clubbing, no cyanosis Neuro Exam: no focal motor/sensory deficits Gait: using cane for ambulation Skin: skin color, texture, turgor are normal, no rashes Labs reviewed and are NOT significant EKG by my review is NOT significant. Surgical Risk Scoring Revised Cardiac Risk Index (RCRI) High-risk type of surgery (examples include vascular and any open intraperitoneal or intrathoracic procedures): 0=No History of ischemic heart disease (history of myocardial infarction or positive exercise test, current compliant of chest pain considered to be secondary to myocardia ischemia, use of nitrate therapy, or ECG with pathological Q waves; do not count prior coronary revascularization procedure unless one of the other criteria for ischemic heart disease is present): 0=No History of heart failure: 0=No History of cerebrovascular disease: 0=No Diabetes mellitus requiring treatment with insulin: 0=No Preoperative serum creatinine >2.0 mg/dL (177 micromol/L): 0=No Pt has revised cardiac index score of: No Risk Factors- 0.4% (95% CI: 0.1-0.8) Screening for Obstructive Sleep Apnea (STOP-BANG) Do you Snore loudly? 0=No Do you often feel Tired, Fatigued, or Sleep? 0=No Has anyone Observed you Stop Breathing or Choking/Gasping during sleep? 0=No Do you have or are you being treated for High Blood Pressure? 1=Yes BMI over 35? 0=No Age older than 50? 0=No Neck size large? (For males - 17 inches or larger, For females - 16 inches or larger) 0=No Male? 0=No Score 0-2:low risk GRANT, 3-4: intermediate risk of GRANT, 5-8: high risk GRANT 1 Assessment and Plan Preop general physical exam (Primary) Lumbar radiculopathy Spondylolisthesis of lumbar region - Patient is cleared to proceed with surgery. Follow Up: Return as scheduled. Functional Assessment They are able to walk up a flight of stairs, walk two blocks at a moderate pace, do heavy house work like vacuuming, and grocery shop. The patient's functional status is good (greater than 4 METS). 1 MET: 4 METs: 4-10 METs: Can take care of self, such as eat, dress or use the toilet. Can walk to block or go up a flight of steps. Can do heavy house work. Surgical Risk Assessment Patient is low medical risk for the listed procedure. Medication adjustments: Spoke with Cardiology and is to hold Eliquis 3 days prior to surgery. Additional consults or testing: None Rosetta Woodruff PA-C documented in this encounter Nursing Notes * Bessie Givens CCMA - 12/17/2023 7:47 AM EDT Chief Complaint Patient presents with pre-op exam Pt arrives today for Pre Op clearance for lower back surgery on Friday 12/22. documented in this encounter Plan of Treatment Upcoming Encounters Date Type Department Care Team (Late st Contact Info) Description 12/30/2023 9:40 AM EDT Office Visit [address] [place] [address] Mumtaz Cedeno MD [address] [place] [address] [place] [address] 01/07/2024 11:00 AM EDT Office Visit Neurology [facility] [place] [address] [place] [address] Leon Lyles, DO [address] [place] [address] 01/21/2024 11:20 AM EDT Office Visit Nephrology, [address] [address] Karl Granado MD [address] [place] [address] 01/28/2024 8:40 AM EDT Laboratory Laboratory Patient Service [address] [place] [phone] [place] [address] [place] [address] 02/04/2024 1:00 PM EDT Office Visit Hematology/Oncology, [address] [place] [address] Arlene Tucker CRNP [address] [facility] [place] [address] 02/13/2024 10:30 AM EDT Office Visit Cardiology, [address] [place] [address] Janet William CRNP [address] [facility] [address] [place] [address] 10/15/2024 9:00 AM EDT Nurse Only Ancillary, [place] [address] [place] [address] Bear, Nurse [facility] [address] [facility] [address] [place] [address] Scheduled Procedures Name Priority Associated Diagnoses Date/Ti [...] Monitoring 10/09/2024 10/10/2023 CKD PHOS USE SMARTSET 75251 11/07/2024 06/2 12/2023, 06/19/2023, 06/06/2023, Additional history exists CKD HGB USE SMARTSET 31271 12/15/202412/15, 11/08/2023, 11/08/2023, Additional history exists DTaP,Tdap,and [...] this encounter Medical Devices Implanted Type Area Driver Guard Device Identifier Shelf Expiration Date Model / Serial / Lot Mesh Pelvic Gynamesh Gpsl - [id number] Implanted:Qty: 1 on 04/09/2007 at OR [facility] N/A: Pelvis [employer] 05/13/2011 GPSL / / [id number] Device Tvt [id number] - [id number] Implanted:Qty: 1 on 04/09/2007 at OR [facility] N/A: Pelvis [employer]necare 11/10/2009 [id number] / / [id number] Mesh [id number] Col [id number] - [id number] Implanted:Qty: 1 on 04/09/2007 at OR [facility] N/A: Pelvis INACTIVE CR BARD : UROLOGICAL 06/13/2009 [id number] / / [id number] Lead Novus Bipolar 58cm - [id number] - [id number] Implanted:Qty: 1 on 07/16/2022 by Lawanda Sweet DO at OR [facility] Left: Heart [employer] : CRM 11/25/2022 5076-58 / [id number] / Description:RV Lead Novus Bipolar 52cm - [id number] - [id number] Implanted:Qty: 1 on 07/16/2022 by Lawanda Sweet DO at OR [facility] Left: Heart [employer] : VERONICA 05/04/2024 5076-52 / [id number] / Description:RA Pacemaker [place] Xt Dr Jimenez ls - [id number] - [id number] Implanted:Qty: 1 on 07/16/2022 by Lawanda Sweet DO at OR [facility] Left: Chest [employer] 12/08/2023 [id number] / [id number] / Envelope Antibacterial Tyrx - [id number] Implanted:Qty: 1 on 07/16/2022 by Lawanda Sweet DO at OR [facility] [employer] : [facility] [id number] 03/15/2023 [id number] / / [id number] documented as of this encounter Visit Diagnoses Diagnosis Preop general physical exam- Primary Other specified pre-operative examination Lumbar radiculopathy Thoracic or lumbosacral neuritis or radiculitis, unspecified Spondylolisthesis of lumbar region Acquired spondylolisthesis documented in this encounter Advance Directives Documents on File Type Date Recorded Patient Policy Change Clerks Supervisor Expl anation Advance Directives and Living Will 12/18/2023 signed on 12/17/2023 ADVANCED DIRECTIVE Advance Directives and Living Will 04/25/2007 Power of Retail Shift Leader 04/25/2007 * Full Code (Latest Code Status [...] patient or by statute hierarchy) Care Teams Language And Literature Division Chair Relationship Specialty Start Date End Date Mumtaz Cedeno MD [facility] [place] [address] [place] [address] PCP - General Family Medicine 06/18/18 documented as of this encounter
--- OUTSIDE RECORDS SUMMARY | 2023-12-23 09:43 | External Medical Summary | Summary of Care ---
Author Name Unknown Organization [facility] Address [address] [place] [address] Phone [phone] Care Team Providers Care Director Furniture Name Role Phone Mumtaz Cedeno MD Primary Care Provider Encounter Details Date Type Department Care Team (Late st Contact Info) Description 12/18/2023 Orders Only [place] [address] [place] [address] Mumtaz Cedeno MD [address] [facility] [address] [place], [place] [id number] Allergies Active Allergy Reactions Criticality Noted Date [...] wheeze. 225 mL 1 01/23/2022 Active Nystatin 796756 UNIT/GM External Powder (Nystop) Apply topically to [...] Oral Tablet (Lopressor)Indicatio ns:Coronary artery disease involving [place] coronary artery of [place] heart without angina pectoris TAKE ONE TABLET [...] are reportedly much improved since pacemaker placement Tachy-asm syndrome 07/16/2022 Last Assessment & Plan: S/p [...] remission 11/01/2017 Coronary artery disease invo lving [place] coronary artery of [place] heart without angina pectoris 06/18/2017 History of [...] mRNA, LNP-s, No Pre serve, 2-Dose Series ([employer]) 02/08/2021,08/02/2020,07/07/2020 COVID-19, LNP-s, No Preserve , Jamie-sucrose, Ages 12+ (Pfizer) 09/22/2021 COVID-19, MRNA-LNP, 23-24, P F, 30 MCG/0.3 mL, 12 YRS AND ABOVE, IM (PFIZER-Comirnaty) 03/05/2023 Covid-19, Mrna, Lnp-s, Pf, B ivalent, [...] No 05/21/2022 documented as of this encounter Plan of Treatment Upcoming Encounters Date Type Department Care Team (Late st Contact Info) Description 12/30/2023 9:40 AM EDT Office Visit [address] [place] [phone] Mumtaz Cedeno MD [address] [place] [address] [place] [address] 01/07/2024 11:00 AM EDT Office Visit Neurology State John Bauer [address] [place] [address] Leon Lyles, [address] [place] [address] 01/21/2024 11:20 AM EDT Office Visit Nephrology, [address] [place] [address] Karl Granado MD [address] [place] [address] 01/28/2024 8:40 AM EDT Laboratory Laboratory Patient Service [address] [place] [phone] [place], [address] [address] 02/04/2024 1:00 PM EDT Office Visit Hematology/Oncology, [address] [address] Arlene Tucker CRNP [address] [place] [address] 02/13/2024 10:30 AM EDT Office Visit Cardiology[address] [address] Janet William CRNP [address] [place] [address] 10/15/2024 9:00 AM EDT Nurse Only Ancillary, [address] [place] [address] [place], Nurse Annual Wellness [address] [place], [place] [address] [address] [place] [address] Scheduled Procedures Name Priority Associated Diagnoses Date/Ti [...] Monitoring 10/09/2024 10/10/2023 CKD HGB USE SMARTSET 19055 11/07/202412/15, 11/08/2023, 11/08/2023, Additional history exists CKD PHOS USE SMARTSET 42957 11/07/202410/12, 06/19/2023, 06/06/2023, Additional history exists DTaP,Tdap,and [...] this encounter Medical Devices Implanted Type Area Assessment Clinician Device Identifier Shelf Expiration Date Model / Serial / Lot Mesh Pelvic Gynamesh Gpsl - [id number] [place]planted:Q[place]: 1 on 04[place]09/2007 [place] [facility] [place] Pelvis [employer] 05/13/2011 GPSL / / [id number] Device Tvt [id number] - [id number] Implanted:Qty: 1 on 04/09/2007 [place] [facility] [place]: Pelvis Gynecare 11/10/2009 [id number] / / [id number] Mesh [id number] Col [id number] - [id number] Implanted:Qty: 1 on 04/09/2007 [place] [facility] [place] Pelvis INACTIVE CR BARD : UROLOGICAL 06/13/2009 [id number] / / [id number] Lead Novus Bipolar 58cm - [id number] - [id number] Implanted:Qty: 1 on 07/16/2022 by Lawanda Sweet DO at OR [facility] Left: Heart [employer] : [facility] 11/25/2022 5076-58 / [id number] / Description:RV Lead Novus Bipolar 52cm - [id number] - [id number] Implanted:Qty: 1 on 07/16/2022 by Lawanda Sweet DO at OR [facility] Left: Heart [employer] : [facility] 05/04/2024 5076-52 / [id number] / Description:RA Pacemaker [place] Xt Dr Mri [facility] - [id number] - [id number] Implanted:Qty: 1 on 07/16/2022 by Lawanda Sweet DO at OR [facility] Left: Chest [employer] 12/08/2023 [id number] / [id number] / Envelope Antibacterial Tyrx - [id number] Implanted:Qty: 1 on 07/16/2022 by Lawanda Sweet DO at OR [facility] [employer] : [facility] [id number] 03/15/2023 [id number] / / [id number] documented as of this encounter Procedures Procedure Name Priority Date/Time Associated Diagnosis Comments CHEMISTRY-OUTSIDE Routine 12/16/2023 documented in this encounter Results * CHEMISTRY-OUTSIDE (12/16/2023) Not all results display below - see scan for full detail OUTSIDE LAB (SEE SCANNED REPORT) Comment:SEE SCAN - UA,PTINR, CBCD,UA CREATININE-OUTSID E LAB OUTSIDE LAB (SEE SCANNED REPORT) EGFR-OUTSIDE LAB OUT SIDE LAB (SEE SCANNED REPORT) POTASSIUM-OUTSIDE LAB OUTSIDE LAB (SEE SCANNED REPORT) GLUCOSE-OUTSIDE LAB OUTSIDE LAB (SEE SCANNED REPORT) HOURS FASTING OUTSID E LAB (SEE SCANNED REPORT) TRIGLYCERIDES-OUT SIDE LAB OUTSIDE LAB (SEE SCANNED REPORT) CHOLESTEROL-OUTSI DE LAB OUTSIDE LAB (SEE SCANNED REPORT) HDL-OUTSIDE LAB OUTS DWIGHT LAB (SEE SCANNED REPORT) CHOL/HDL RATIO-OUTSIDE LAB OUTSIDE LA B (SEE SCANNED REPORT) LDL (CALCULATED)-OUTS DWIGHT LAB OUTSIDE LAB (SEE SCANNED REPORT) LDL (DIRECT MEASURE)-OUTSIDE LAB OUTSIDE LAB (SEE SCANNED REPORT) HEMOGLOBIN, R4C-MEMKSPJ LAB OUTSIDE LAB (SEE SCANNED REPORT) PHOSPHORUS-OUTSID E LAB OUTSIDE LAB (SEE SCANNED REPORT) PTH-OUTSIDE LAB OUTS DWIGHT LAB (SEE SCANNED REPORT) MICROALBUMIN RATIO-OUTSIDE LAB OUTSIDE LA B (SEE SCANNED REPORT) PROTEIN, UA-OUTSIDE LAB OUTSIDE LAB (SEE SCANNED REPORT) HGB 12.3 12.0 - 16.0 G/DL OUTSIDE LAB (SEE SCANNED REPORT) 12/16/2023 Anthony Hawk DO LABORATORY OUTSIDE LAB (SEE SCANNED REPORT) documented in this encounter Advance Directives Documents on File Type Date Recorded Patient Podiatrist Expl anation Advance Directives and Living Will 04/25/2007 Power of Returned Item Clerk 04/25/2007 * Full Code (Latest Code Status [...] patient or by statute hierarchy) Care Teams Director Furniture Relationship Specialty Start Date End Date Mumtaz Cedeno MD [address] [facility] [address] PCP - General Family Medicine 06/18/18 documented as of this encounter
--- NOTE | 2023-12-23 09:56 | History & Physical Bridge Note ---
Date of Service December 23, 2023 History & Physical Bridge Note I have examined the patient, reviewed the History & Physical and in the interval since the performance of the History & Physical I have noted the following changes of clinical significance: no changes noted
--- NOTE | 2023-12-23 09:57 | History & Physical Report ---
Date of Service December 23, 2023 Assessment & Plan (1) Lumbar disc herniation with radiculopathy: Plan: L2-L3 decompression and fusion connector previous hardware History of Present Illness Chief Complaint: Back and leg pain Primary Care Provider: Mumtaz Cedeno MD This is a 78-year-old female known to us the presents chronic persistent back and leg pain after failing since course of nonoperative care is here for surgical intervention. Allergies Allergy/AdvReac Type Severity Reaction Status Date / Time adhesive Allergy Mild Rash Verified 12/23/23 09:02 clemastine [From Tavist] Allergy Mild Rash Verified 12/23/23 09:02 piroxicam [From Feldene] Allergy Mild Rash Verified 12/23/23 09:02 pseudoephedrine [From Tavist] Allergy Mild Rash Verified 12/23/23 09:02 Home Medications Medication Instructions Recorded Confirmed Type Sooth Eye Drops 1 drp ophthalmic (eye) TID 04/14/18 12/23/23 History levothyroxine 125 mcg tablet 50 mcg PO QAM 04/14/18 12/23/23 History (Synthroid) metoprolol tartrate 25 mg tablet 25 mg PO BID 04/14/18 12/23/23 History pantoprazole 40 mg tablet,delayed 40 mg PO QAM 04/14/18 12/23/23 History release psyllium husk 3.4 gram/5.4 gram 1 tbsp PO QAM 04/14/18 12/23/23 History oral powder (Metamucil) sodium chloride 5 % eye ointment 0.25 inch ophthalmic (eye) HS 04/14/18 12/23/23 History (Selina 128) atorvastatin 10 mg tablet 10 mg PO QAM 04/30/18 12/23/23 History fluoxetine 10 mg tablet 10 mg PO QAM 01/25/20 12/23/23 History cholecalciferol (vitamin D3) 25 25 mcg PO QAM 02/15/20 12/23/23 History mcg (1,000 unit) capsule (Vitamin D3) polyethylene glycol 3350 17 gram 17 g PO DAILY PRN constipation #5 03/10/20 12/23/23 Rx oral powder packet (Miralax) ea Botox 1 dose SC UD 12/09/23 12/23/23 History albuterol sulfate 2.5 mg/3 mL 2.5 mg inhalation UD PRN SOB 12/09/23 12/23/23 History (0.083 %) solution for nebulization amlodipine 5 mg tablet 5 mg PO QPM 12/09/23 12/23/23 History apixaban 5 mg tablet 5 mg PO BID 12/09/23 12/23/23 History cyanocobalamin (vitamin B-12) 500 500 mcg PO QAM 12/09/23 12/23/23 History mcg tablet (Vitamin B-12) gabapentin 100 mg capsule 200 mg PO BID 12/09/23 12/23/23 History galcanezumab-gnlm 120 mg/mL 120 mg subcut Q30D 12/09/23 12/23/23 History subcutaneous pen injector (Emgality Pen) loratadine 10 mg tablet 10 mg PO DAILY PRN Allergy Symptoms 12/09/23 12/23/23 History meclizine 25 mg tablet 25 mg PO DAILY PRN Vertigo 12/09/23 12/23/23 History psyllium husk 3.4 gram/5.4 gram 1 tbsp PO DAILY 12/09/23 12/09/23 History oral powder (Metamucil) rimegepant 75 mg disintegrating 75 mg PO Q2D 12/09/23 12/23/23 History tablet (Nurtec ODT) tizanidine 2 mg tablet 2 mg PO BID 12/09/23 12/23/23 History topiramate 100 mg tablet 100 mg PO BID 12/09/23 12/23/23 History valsartan 40 mg tablet 40 mg PO QPM 12/09/23 12/23/23 History Past Med/Surg History Problem List (Updated 12/23/23 @ 09:56 by Anthony Hawk DO) Lumbar disc herniation with radiculopathy Osteoarthritis of left knee Pre-diabetes Status post total knee replacement, left Encounter for pre-operative examination Acute blood loss anemia DVT prophylaxis Acute blood loss as cause of postoperative anemia CAD (coronary artery disease) (Chronic) Per [facility] cardiology 2018, "Possible coronary artery disease: There was a subtle small RCA regional wall motion abnormality on her echo. 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 Last chemo in August 2017 Hypothyroidism (Chronic) CKD (chronic kidney disease) stage 3, GFR 30-59 ml/min (Chronic) RELATED TO CHEMOTHERAPY-F/U DR ROJAS GERD (gastroesophageal reflux disease) (Chronic) Depression (Chronic) Hyperlipidemia (Chronic) Hypertension (Chronic) History of spinal surgery (Acute) Neurogenic claudication due to lumbar spinal stenosis (Chronic) s/p L2-L4 fusion, 04/2018 Medical History Anesthesia complication laryngeal edema with previous intubations Atrial fibrillation currently on eliqujorge; robson marie Cardiomyopathy 2/2 chemotherapy, resolved, EF normal on 2018 echo. Chronic kidney disease, stage 3 2/2 chemo; f/u dr. rojas Corneal dystrophy Depression GERD (gastroesophageal reflux disease) controlled, stable per pt Hard of hearing History of diffuse large B-cell lymphoma dx 04/2017, chemo tx only; in remission since 2019 History of MRSA infection [id number], central line infected Hx of migraines Hyperlipidemia Hypertension controlled, stable per pt-hypotension with tizanidine Hypothyroidism Neurogenic claudication due to lumbar spinal stenosis s/p L2-L4 fusion, 04/2018 Pacemaker medtronic>last checked 10/2023 Prediabetes Slow to wake up after anesthesia denies needing re-intubation Tachy-sam syndrome pacemaker placed 07/2022, rosbon almaraz; f/u robson vigil Surgical History Fusion of spine 2018, L3-L4 and L4-L5; [facility] H/O repair of right rotator cuff History of appendectomy History of bladder surgery A&P repair History of carpal tunnel release of both wrists History of cataract surgery rt/lt History of cholecystectomy History of colonoscopy with polypectomy History of esophagogastroduodenoscopy (EGD) History of ovarian cystectomy History of total abdominal hysterectomy and bilateral salpingo-oophorectomy History of total left knee replacement History of vascular access device "just a central line," subsequent removal Hx of foot surgery lt Laryngeal edema 6-8x, last time was with lumbar fusion in 2018 at [facility] S/P cardiac pacemaker procedure 07/2022, jose cardona; f/u robson fatima Family History Father Stroke Hypertension Mother Diabetes Stroke Congestive heart failure Social History Smoking Status: Never smoker Second Hand Exposure: No; Do You Dip or Chew Tobacco: No; Tobacco Cessation Education Requested by Patient: No Hx Alcohol Use: Yes Hx Substance Use: No Preferred Language: Andorran Communication Ability: Effective International Marketing Intern Required: No Beliefs That Will Affect Care: None marital status: Current Living Situation: Spouse current occupational status: retired Other Information That Helps Us Care for You: No Feels Safe at Home: Yes Safety Concerns: Feels Safe At This Time Assistive Devices: Hearing Aid - Bilateral and Nebulizer Assistive Devices Comment: will be leaving home DOS-hearing aids Physical Exam Physical Exam: Patient is alert and oriented heart regular rhythm lungs clear Results & Data Results & Data Vital Signs (Past 12 Hours) Vital Signs Temp Pulse Resp BP Pulse Ox O2 Del Method 12/23/23 09:11 36.5 C 61 20 214/84 H 100 Room Air
[2023-12-23] MEDS: ceFAZolin 2000MG 2,000 MG/15 ML SYR IV SCH ×2 (10:41→20:12)
[2023-12-23] MEDS ORDERED: PROMETHAZINE HCL 6.25 MG in SODIUM CHLORIDE 0.9% 50 ML IV PRN (10:52)
[2023-12-23] MEDS ORDERED: ONDANSETRON INJ 2 MG/ML 2 ML VIAL IV PRN ×2 (10:52→14:49)
[2023-12-23] MEDS ORDERED: HYDROmorphone INJ 1 MG/ML SYRINGE IV PRN (10:52)
[2023-12-23] MEDS ORDERED: ePHEDrine sulfate 50 MG/ML AMP IV PRN (10:52)
[2023-12-23] MEDS ORDERED: ATROPINE SULFATE 0.1 MG/ML 10ML SYR IV PRN (10:52)
[2023-12-23] MEDS ORDERED: diphenhydrAMINE 50 MG/ML VIAL ONE ×2 (11:00→11:15)
[2023-12-23] MEDS: BUPIVACAINE/EPINEPHRINE 0.25% 1:200,000 30 ML VIAL ONE (11:10)
[2023-12-23] MEDS ORDERED: DEXAMETHASONE SOD INJ 4 MG/ML VIAL ONE (11:15)
[2023-12-23] MEDS ORDERED: ONDANSETRON INJ 2 MG/ML 2 ML VIAL ONE (11:15)
[2023-12-23] MEDS ORDERED: LIDOCAINE 2% 20 MG/ML 5 ML SYR IV ONE (11:15)
[2023-12-23] MEDS ORDERED: GLYCOPYRROLATE 0.2 MG/ML VIAL ONE (11:15)
[2023-12-23] MEDS: ceFAZolin 330 MG/ML 1 GM VIAL ONE (11:38)
[2023-12-23] MEDS: FLOSEAL HEMOSTATIC MATRIX 10ML TOP ONE (12:25)
[2023-12-23] MEDS ORDERED: SUGAMMADEX SODIUM 200 MG/2 ML VIAL IV ONE (12:28)
--- NOTE | 2023-12-23 12:52 | Operative Report ---
Post Operative Report Pre & Post Diagnosis Operation Date: 12/23/23 10:05 Pre-Op Diagnosis: Lumbar disc herniation with radiculopathy Post-Op Diagnosis: Lumbar disc herniation with radiculopathy I identified the patient and participated in the time-out.: Yes Procedure Operation Date: 12/23/23 10:05 Actual Procedures #1 removal of posterior instrumentation L3-L5 per #2 exploration of fusion L3- L5. #3 lumbar decompression with bilateral medial facetectomies and foraminotomies L1-L2 L2-L3. #4 posterior spinal fusion L2-L3. #5 placement posterior instrumentation L2-L5. #6 interbody fusion L2-L3. #7 placement of Spira 9 x 26 mm at L2-L3. #8 placement locally harvested morselized autograft in the posterior lateral gutters. #9 placement of infuse collagen sponge combined with Koros in the posterior lateral gutters and Morpheus interbody space. #10 placement of versa wrap on the exposed dura. Surgeon Anthony Hawk, DO Sap Solution Manager Consultant None Estimated Blood Loss 200 Findings Consistent with Post-Op Diagnosis Specimens None Indications This is a 70-year-old female presents bones diagnosis after failing course of nonoperative care she is here for surgical invention. Description of Procedure Patient was met with identified informed consent obtained. Patient was then taken to the operative suite underwent patient placed in a prone position on the Marlon table on top of the Shamir frame. All bony promises well-padded eyes inspected to ensure no external pressure placed upon them. This point the lumbar spine was prepped and draped in normal sterile fashion. Sharp dissection with the assistance of Bovie cautery was performed down to and exposing the lamina and transverse processes of L2 and instrumentation at L3-L4-L5 bilaterally. Examining instrumentation there was not enough lars available for connection subsequently removed the entire construct. Pedicle screws and lars. Explored the fusion mass noting being mature and intact. Informed complete laminectomy of L2 including bilateral medial facetectomies and foraminotomies addressing severe spinal stenosis as well as large disc herniation on the right side of the canal. Also performed partial laminectomy of L1 with bilateral medial facetectomies for complete decompression of the subarticular stenosis. Pedicle screws were then placed in L2-L3 and L5 bilaterally with assistance of fluoroscopy in the process lars placed. By way of a trans foraminal approach on the right complete discectomy of L2-L3 was performed endplates guided to subcortical bleeding bone and 9 x 26 mm spiral cage filled with local Morpheus bone graft tapped in position. Rods are then locked in final position bilaterally. The transverse processes of L2-L3 burred to subcortical waiting bone. Infuse collagen sponge, with Koros and local autograft placed in the posterior lateral gutters. Versa wrap placed over the exposed dura and a 15 round SEYMOUR drain inserted. The incision was then closed with 1 Vicryl to fascia 2-0 Vicryl subcutaneously and 4 Monocryl for final skin closure. Steri-Strips and sterile dressing placed. Patient waken taken to PACU stable condition. Please note spinal cord monitoring was utilized at the procedure no changes noted. Im ordering 20 grams of Triple Greenway Collagen Powder ([employer] [id number]) to treat an incision wound that was caused by a spine procedure. The incision is approximately 2 cm(W) x 4 cm(L) into the joint (D) in size and is a full thickness wound. Triple Greenway collagen comes in 1 gram packets so 20 packets were ordered. Given the size of the wound, with light to moderate exudate I chose to order a 20 day supply. The patient will be provided instructions for proper application of the collagen wound kit. The patient will be asked to apply the collagen powder daily and then cover it with sterile dressings dispensed. Collagen was selected as I expect the collagen to attract monocytes and fibroblasts, act as a sacrificial substrate for MMPs, and ultimately proved a matrix for tissue and vessel growth. The collagen will act as a primary dressing in this scenario. It is medically necessary for proper healing of these wounds to improve bioavailability and contact with each wound surface, this is also to help prevent infection of wounds and promote healing ultimately leading to a better healing outcome and limit the risk of infection. I attest to the content of the Intraoperative Record and any orders documented therein. Any exceptions are noted below.
[2023-12-23] MEDS: fentaNYL citrate PF 100 MCG/2 ML VIAL IV PRN (13:15)
--- NOTE | 2023-12-23 13:28 | Fluoroscopy Report ---
FL lumbar spine 2-3V CLINICAL HISTORY: L2-L3 DECOMPRESSION AND FUSION COMPARISON STUDY: None. FLUOROSCOPY TIME: 13 seconds FLUOROSCOPY IMAGES: 2 Ka,r: 8.3 mGy FINDINGS: Posterior decompression fusion at L2-L5 with pedicle screws and rods. The hardware appears intact. Disc spaces are noted. IMPRESSION: Fluoroscopic assistance as above. ACT 112: Negative or not required by law. Electronically signed by: Edward Davis M.D. 12/23/2023 1:26 PM
[2023-12-23] MEDS ORDERED: bisacodyL 10 MG SUPP PR PRN (14:49)
[2023-12-23] MEDS ORDERED: LORATADINE 10 MG TAB PO PRN (14:49)
[2023-12-23] MEDS ORDERED: ONDANSETRON 4 MG OD TAB PO PRN (14:49)
[2023-12-23] MEDS ORDERED: MECLIZINE HCL 25 MG TAB PO PRN (14:49)
[2023-12-23] MEDS ORDERED: ACETAMINOPHEN 1,000 MG/100 ML VIAL IV PRN (14:49)
[2023-12-23] MEDS ORDERED: LORazepam 0.5 MG in SYRINGE 0.25 ML IV PRN (14:49)
[2023-12-23] MEDS ORDERED: BOTOX SC SCH (14:49)
[2023-12-23] MEDS ORDERED: SOD PHOSPHATE/SOD BIPHOSPHATE ENEMA 132 ML BTL PR PRN (14:49)
[2023-12-23] MEDS ORDERED: DO NOT ADMINISTER FLU VACCINE PRN (14:49)
[2023-12-23] MEDS ORDERED: PROMETHAZINE 12.5 MG/50.5 ML BAG IV PRN (14:49)
[2023-12-23] MEDS ORDERED: DO NOT ADMINISTER PNEUMOCOCCAL VACCINE PRN (14:49)
[2023-12-23] MEDS ORDERED: diphenhydrAMINE Capsule 25 MG CAP PO PRN (14:49)
[2023-12-23] MEDS ORDERED: MAGNESIUM HYDROXIDE SUSP 30 ML UDC PO PRN (14:49)
[2023-12-23] MEDS ORDERED: ALUMINUM/MAGNESIUM SUSP 30 ML UDC PO PRN (14:49)
[2023-12-23] MEDS ORDERED: METOCLOPRAMIDE HCL INJ 5 MG/ML 2 ML VIAL IV PRN (14:49)
[2023-12-23] MEDS ORDERED: FAMOTIDINE 20 MG TAB PO PRN (14:49)
[2023-12-23] MEDS ORDERED: NALOXONE HCL 0.4 MG/1 ML VIAL/CARP IV PRN (14:49)
[2023-12-23] MEDS ORDERED: LORazepam 0.5 MG TAB PO PRN (14:49)
[2023-12-23] MEDS: LACTATED RINGER'S 1,000 ML IV SCH (15:08)
--- NOTE | 2023-12-23 15:17 | Hospitalist Consultation ---
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 Hawk and for whom we have been consulted to assist with post-operative medical management. At present, her BP is elevated at 171/85 but pt also notes being in significant pain. Spoke with RN who will give ordered pain medication and reassess. - Pain control, activity per primary team - CBC in the AM - monitor for post-op blood loss anemia (EBL 200 ml) - Encourage incentive spirometry (2) Hypertension: At present, her BP is elevated at 171/85 but pt also notes being in significant pain. Spoke with RN who will give ordered pain medication and reassess. Reviewed cardiology note from July regarding her current BP medication regimen - they recommended pt take Toprol in the AM, amlodipine around noon, and valsartan with her evening Toprol dosing. Adjusted ordered medications here for amlodipine to be given in the afternoon to more closely mimic patient's outpatient regimen. (3) Paroxysmal atrial fibrillation: Pt is on chronic anticoagulation with apixaban for this. AC currently on hold for surgery. Recommend resuming apixaban as soon as okay with the primary team. Continue beta-qi (4) Chronic kidney disease, stage 3: Chronic, stable Recheck BMP in the AM (5) CAD (coronary artery disease): Chronic, stable Continue outpatient regimen (6) Hypothyroidism: Chronic, stable Continue levothyroxine (7) GERD (gastroesophageal reflux disease): Chronic, stable Continue PPI therapy Plan Pt seen and reviewed with collaborating physician, Dr. Koo. Plan of care discussed and as outlined above. Thank you for this consultation. We will continue to follow this patient with you. A member of the hospitalist team is available 03/12 via [employer]. Please don't hesitate to reach out with questions. Timmy Rodriguez PA-C Supervising Physician Co-Signing Physician Notes Attending Addendum: Case reviewed with the advanced practitioner. I have personally performed a history and physical examination on the patient. I have reviewed the advanced practitioner's documentation on the date of service referenced in note, and I agree with, and take responsibility for the plan of care. please refer to her notes for full details patient seen and examined, records reviewed by myself as well on exam, patient Seen resting in bed, uncomfortable secondary to back pain States back pain is 9 out of 10 Discussed with RN, stronger pain medication will be given Otherwise denies active shortness of breath, chest pain, headache, dizziness, nausea no other symptoms VS noted and reviewed oriented x3, not in distress, speaks in sentences with no effort nor accessory muscle use normal rate, regular rhythm, no murmurs clear breath sounds bilaterally non distended, soft, nontender no bipedal edema, erythema, warmth no neuro deficits all labs, imaging noted and reviewed ASSESSMENT AND PLAN> Status post lumbar spine surgery Blood pressure elevated likely secondary to uncontrolled pain Continue adequate pain control Usual Norvasc ordered to be given Continue other usual hypertensive medications other diagnoses and plan of care as per advanced practitioner's notes Jak Koo MD History of Present Illness Reason for Consultation: Post-operative medical management Requesting Physician: Dr. 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 Hawk. We have been consulted to assist with post-operative medical management. Pt is on chronic anticoagulation with apixaban due to PAF noted on device interrogation earlier this year. This was to be held for three days prior to surgery, which patient reports she has done. Pt also has a history of chronic daily migraines for which she follows with neurology and was started on Emgality, has undergone Botox injections, which seems to have helped. She notes having some episodes of low blood pressure last week, as low as 70/50, which she attributed to the tiza nidine and gabapentin. Her BP would improve with drinking water. Currently, she is complaining of lower back pain, similar to before surgery. She has chronic neuropathy in her feet, which is no worse than usual. She denies chest pain, palpitations, shortness of breath, nausea or vomiting. Allergies Allergy/AdvReac Type Severity Reaction Status Date / Time adhesive Allergy Mild Rash Verified 12/23/23 09:02 clemastine [From Tavist] Allergy Mild Rash Verified 12/23/23 09:02 piroxicam [From Feldene] Allergy Mild Rash Verified 12/23/23 09:02 pseudoephedrine [From Tavist] Allergy Mild Rash Verified 12/23/23 09:02 Home Medications Medication Instructions Recorded Confirmed Type Sooth Eye Drops 1 drp ophthalmic (eye) TID 04/14/18 12/23/23 History levothyroxine 125 mcg tablet 50 mcg PO QAM 04/14/18 12/23/23 History (Synthroid) metoprolol tartrate 25 mg tablet 25 mg PO BID 04/14/18 12/23/23 History pantoprazole 40 mg tablet,delayed 40 mg PO QAM 04/14/18 12/23/23 History release psyllium husk 3.4 gram/5.4 gram 1 tbsp PO QAM 04/14/18 12/23/23 History oral powder (Metamucil) sodium chloride 5 % eye ointment 0.25 inch ophthalmic (eye) HS 04/14/18 12/23/23 History (Selina 128) atorvastatin 10 mg tablet 10 mg PO QAM 04/30/18 12/23/23 History fluoxetine 10 mg tablet 10 mg PO QAM 01/25/20 12/23/23 History cholecalciferol (vitamin D3) 25 25 mcg PO QAM 02/15/20 12/23/23 History mcg (1,000 unit) capsule (Vitamin D3) polyethylene glycol 3350 17 gram 17 g PO DAILY PRN constipation #5 03/10/20 12/23/23 Rx oral powder packet (Miralax) ea Botox 1 dose SC UD 12/09/23 12/23/23 History albuterol sulfate 2.5 mg/3 mL 2.5 mg inhalation UD PRN SOB 12/09/23 12/23/23 History (0.083 %) solution for nebulization amlodipine 5 mg tablet 5 mg PO QPM 12/09/23 12/23/23 History apixaban 5 mg tablet 5 mg PO BID 12/09/23 12/23/23 History cyanocobalamin (vitamin B-12) 500 500 mcg PO QAM 12/09/23 12/23/23 History mcg tablet (Vitamin B-12) gabapentin 100 mg capsule 200 mg PO BID 12/09/23 12/23/23 History galcanezumab-gnlm 120 mg/mL 120 mg subcut Q30D 12/09/23 12/23/23 History subcutaneous pen injector (Emgality Pen) loratadine 10 mg tablet 10 mg PO DAILY PRN Allergy Symptoms 12/09/23 12/23/23 History meclizine 25 mg tablet 25 mg PO DAILY PRN Vertigo 12/09/23 12/23/23 History psyllium husk 3.4 gram/5.4 gram 1 tbsp PO DAILY 12/09/23 12/09/23 History oral powder (Metamucil) rimegepant 75 mg disintegrating 75 mg PO Q2D 12/09/23 12/23/23 History tablet (Nurtec ODT) tizanidine 2 mg tablet 2 mg PO BID 12/09/23 12/23/23 History topiramate 100 mg tablet 100 mg PO BID 12/09/23 12/23/23 History valsartan 40 mg tablet 40 mg PO QPM 12/09/23 12/23/23 History Patient History Medical History (Updated 12/23/23 @ 16:05 by Henna Rodriguez PA-C) CKD (chronic kidney disease) stage 3, GFR 30-59 ml/min RELATED TO CHEMOTHERAPY-F/U DR ROE Anesthesia complication laryngeal edema with previous intubations Hard of hearing Atrial fibrillation currently on eliquis; robson marie Hx of migraines Prediabetes Neurogenic claudication due to lumbar spinal stenosis s/p L2-L4 fusion, 04/2018 Hypothyroidism Hypertension controlled, stable per pt-hypotension with tizanidine Hyperlipidemia GERD (gastroesophageal reflux disease) controlled, stable per pt Depression Tachy-sam syndrome pacemaker placed 07/2022, robson almaraz; f/u robson vigil Pacemaker medtronic>last checked 10/2023 History of diffuse large B-cell lymphoma dx 04/2017, chemo tx only; in remission since 2019 Slow to wake up after anesthesia denies needing re-intubation History of MRSA infection [id number], central line infected Cardiomyopathy 2/2 chemotherapy, resolved, EF normal on 2018 echo. Corneal dystrophy Surgical History S/P cardiac pacemaker procedure 07/2022, robson almaraz, medtronic; f/u dr. [facility] History of total left knee replacement Hx of foot surgery lt History of cataract surgery rt/lt Laryngeal edema 6-8x, last time was with lumbar fusion in 2018 at [facility] History of bladder surgery A&P repair History of esophagogastroduodenoscopy (EGD) Fusion of spine 2018, L3-L4 and L4-L5; [facility] History of colonoscopy with polypectomy History of vascular access device "just a central line," subsequent removal H/O repair of right rotator cuff History of carpal tunnel release of both wrists History of total abdominal hysterectomy and bilateral salpingo-oophorectomy History of cholecystectomy History of ovarian cystectomy History of appendectomy Family History Father Stroke Hypertension Mother Diabetes Stroke Congestive heart failure Social History Smoking Status: Never smoker Second Hand Exposure: No; Do You Dip or Chew Tobacco: No; Tobacco Cessation Education Requested by Patient: No Hx Alcohol Use: Yes Hx Substance Use: No Preferred Language: Malagasy Communication Ability: Effective Tool Designer Required: No Beliefs That Will Affect Care: None marital status: Current Living Situation: Spouse current occupational status: retired Other Information That Helps Us Care for You: No Feels Safe at Home: Yes Safety Concerns: Feels Safe At This Time Assistive Devices: Hearing Aid - Bilateral and Nebulizer Assistive Devices Comment: will be leaving home DOS-hearing aids Review of Systems Review of Systems: All systems reviewed & are unremarkable except as noted in Subjective Physical Exam Physical Exam: General: awake, alert, NAD HEENT: no scleral icterus, moist oral mucosa Neck: supple, trachea midline Heart: RRR Lungs: CTA bilaterally on the anterior Abdomen: soft, +BS Extremities: no pedal edema, CJ hose bilateral LE Skin: warm, dry, no jaundice Neurologic: OX3, no confusion or dysarthria, moving all extremities including toes bilaterally Results & Data Results & Data Vital Signs (Past 12 Hours) Vital Signs Temp Pulse Pulse Resp BP Pulse Ox O2 Del Method 12/23/23 15:09 36.4 C L 60 14 170/81 H 96 Room Air 12/23/23 14:54 36.3 C L 60 16 137/87 100 Room Air 12/23/23 14:15 36.2 C L 60 7 L 152/76 H 99 Room Air 12/23/23 14:00 36.2 C L 60 6 L 144/72 H 100 Room Air 12/23/23 13:50 60 10 L 133/70 99 Room Air 12/23/23 13:40 62 8 L 139/69 95 Oxymask 12/23/23 13:30 60 18 120/62 94 Oxymask 12/23/23 13:20 63 12 126/57 L 98 Oxymask 12/23/23 13:10 60 13 149/90 H 96 Oxymask 12/23/23 13:01 36.0 C L 60 16 171/66 H 100 Oxymask 12/23/23 09:11 36.5 C 61 20 214/84 H 100 Room Air O2 Flow Rate 12/23/23 15:09 12/23/23 14:54 12/23/23 14:15 12/23/23 14:00 12/23/23 13:50 12/23/23 13:40 2 12/23/23 13:30 3 12/23/23 13:20 5 12/23/23 13:10 5 12/23/23 13:01 7 12/23/23 09:11 (2) Hypertension Hypertension type: unspecified Qualified Code(s): I10 - Essential (primary) hypertension (4) Chronic kidney disease, stage 3 Chronic kidney disease stage 3 subtype: unspecified whether 3a or 3b Qualified Code(s): N18.30 - Chronic kidney disease, stage 3 unspecified (5) CAD (coronary artery disease) Associated angina: without angina Coronary Disease-Associated Artery/Lesion type: [place] artery [place] vs. transplanted heart: [place] heart Qualified Code(s): I25.10 - Atherosclerotic heart disease of [place] coronary artery without angina pectoris (6) Hypothyroidism Hypothyroidism type: unspecified Qualified Code(s): E03.9 - Hypothyroidism, unspecified (7) GERD (gastroesophageal reflux disease) Esophagitis presence: esophagitis presence not specified Qualified Code(s): K21.9 - Gastro-esophageal reflux disease without esophagitis
--- NOTE | 2023-12-23 15:28 | Anesthesiology Progress Note ---
Date of Service December 23, 2023 Anesthesia Post Procedure Vital Signs Vital Signs: Temp Pulse Pulse Resp BP Pulse Ox O2 Del Method 12/23/23 15:09 36.4 C L 60 14 170/81 H 96 Room Air 12/23/23 14:54 36.3 C L 60 16 137/87 100 Room Air 12/23/23 14:15 36.2 C L 60 7 L 152/76 H 99 Room Air 12/23/23 14:00 36.2 C L 60 6 L 144/72 H 100 Room Air 12/23/23 13:50 60 10 L 133/70 99 Room Air 12/23/23 13:40 62 8 L 139/69 95 Oxymask 12/23/23 13:30 60 18 120/62 94 Oxymask 12/23/23 13:20 63 12 126/57 L 98 Oxymask 12/23/23 13:10 60 13 149/90 H 96 Oxymask 12/23/23 13:01 36.0 C L 60 16 171/66 H 100 Oxymask 12/23/23 09:11 36.5 C 61 20 214/84 H 100 Room Air O2 Flow Rate 12/23/23 15:09 12/23/23 14:54 12/23/23 14:15 12/23/23 14:00 12/23/23 13:50 12/23/23 13:40 2 12/23/23 13:30 3 12/23/23 13:20 5 12/23/23 13:10 5 12/23/23 13:01 7 12/23/23 09:11 Pain Intensity Bilateral Lower Back: Pain Intensity: 8 Transfer of Care Handoff Completed per policy Notes Mental Status: alert / awake / arousable and participated in evaluation Patient Amnestic to Procedure: Yes Nausea / Vomiting: adequately controlled Pain: adequately controlled Airway Patency, RR, SpO2: stable & adequate BP & HR: stable & adequate Hydration State: stable & adequate Anesthetic Complications: no major complications apparent and Pt Satisfied with anesthetic care
[2023-12-23] MEDS: oxyCODONE HCL IR 5 MG TAB (IMMEDIATE RELEASE) PO PRN (15:36)
[2023-12-23] MEDS: ARTIFICIAL TEARS OP SCH (15:36)
[2023-12-23] MEDS: amLODIPine BESYLATE 5 MG TAB PO SCH (16:59)
[2023-12-23] MEDS: HYDROmorphone INJ 1 MG/ML SYRINGE IV PRN (16:59)
[2023-12-23] MEDS: ARTIFICIAL TEARS OP OINT 3.5 GM TUBE OP SCH (20:12)
[2023-12-23] MEDS: DOCUSATE SODIUM/SENNA 50/8.6MG TAB PO SCH (20:13)
[2023-12-23] MEDS: VALSARTAN 80 MG TAB PO SCH (20:14)
[2023-12-23] MEDS: GABAPENTIN 100 MG CAP PO SCH (20:14)
[2023-12-23] MEDS: tiZANidine HCL 4 MG TABLET PO SCH (20:15)
[2023-12-23] MEDS: METOPROLOL TARTRATE 25 MG TAB PO SCH (20:16)
[2023-12-23] MEDS: TOPIRAMATE 100 MG TAB PO SCH (20:18)
[2023-12-23] MEDS ORDERED: amLODIPine BESYLATE 5 MG TAB PO SCH (21:00)
[2023-12-24] MEDS: HYDROmorphone INJ 0.5 MG/0.5 ML SYR IV PRN (03:03)
[2023-12-24] MEDS: POLYETHYLENE (MIRALAX) 17 GM PACK PO SCH (05:41)
[2023-12-24] MEDS: LEVOTHYROXINE SODIUM 50 MCG TABLET PO SCH (05:41)
[2023-12-24] MEDS: traMADol HCL 50 MG TABLET PO PRN (05:46)
--- NOTE | 2023-12-24 08:10 | Orthopedic Progress Note ---
Date of Service December 24, 2023 Assessment & Plan (1) Lumbar disc herniation with radiculopathy: Plan: At this time initiate physical therapy monitor her SEYMOUR output anticipate discharge home in the next few days. Admission and Anticipated Discharge Date Admission Date: December 23, 2023 Subjective Patient's back pain is controlled leg symptoms markedly improved Physical Exam Physical Exam: Patient is currently in bed. She appears comfortable. Is constricted testing. Results & Data Vital Signs (Past 12 Hours) Vital Signs Temp Pulse Resp BP BP Pulse Ox O2 Del Method 12/24/23 07:39 36.7 C 59 L 16 105/63 97 Room Air 12/24/23 02:50 36.6 C 63 16 111/71 99 Room Air 12/23/23 22:39 36.5 C 60 16 104/66 92 Room Air Queries Orthopedic Spine Obesity: Yes
[2023-12-24 08:15] LABS: Basophils # (auto) 0.01 K/uL (0.00-0.20); Basophils % (auto) 0.1 %; Eosinophils # (auto) 0.01 K/uL (0.00-0.50); Eosinophils % (auto) 0.1 %; Hematocrit (blood only) 30.3 % (37.0-47.0); Hemoglobin 9.5 g/dl (12.0-16.0); Immature Granulocytes # (auto) 0.03 K/uL (0.01-0.20); Immature Granulocytes % (auto) 0.3 %; Lymphocytes # (auto) 0.84 K/uL (1.20-3.40); Lymphocytes % (auto) 8.6 %; Mean Corpuscular Hemoglobin 30.4 pg (25.0-34.0); Mean Corpuscular Hgb Conc 31.4 g/dL (32.0-36.0); Mean Corpuscular Volume 96.8 fL (80.0-100.0); Mean Platelet Volume 11.8 fL (9.4-12.4); Monocytes # (auto) 0.81 K/uL (0.11-0.59); Monocytes % (auto) 8.3 %; Neutrophils # (auto) 8.06 K/uL (1.40-6.50); Neutrophils % (auto) 82.6 %; Platelet Count 137 K/uL (130-400); RDW Coefficient of Variation 13.7 % (11.5-14.5); RDW Standard Deviation 48.8 fL (36.4-46.3); Red Blood Count 3.13 M/uL (4.20-5.40); White Blood Count 9.76 K/ul (4.8-10.8)
[2023-12-24 08:32] LABS: BUN Creatinine Ratio 15.9 (10-20); Creatinine Clr Calc Pharmacy 36.2 ml/min; Est GFR (African American) 42.3 ml/min; Est GFR (Non-African American) 36.5 ml/min; Potassium 4.6 mmol/L (3.5-5.1)
[2023-12-24] MEDS: PSYLLIUM or GUAR GUM FIBER 4GM PACKET PO SCH (09:07)
[2023-12-24] MEDS: CHOLECALCIFEROL 25 MCG (1000 UNITS) TAB PO SCH (09:09)
[2023-12-24] MEDS: FLUoxetine HCL 10 MG CAP PO SCH (09:09)
[2023-12-24] MEDS: CYANOCOBALAMIN (B-12) 500 MCG TABLET PO SCH (09:10)
[2023-12-24] MEDS: dexAMETHasone 6 MG in SYRINGE 0 ML IV SCH (09:10)
[2023-12-24] MEDS: PANTOprazole 40 MG TAB PO SCH (09:10)
[2023-12-24] MEDS: ATORVASTATIN 10 MG TAB PO SCH (09:11)
--- NOTE | 2023-12-24 11:41 | Hospitalist Progress Note ---
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 Hawk and for whom we have been consulted to assist with post-operative medical management. - Pain control, activity per primary team. C/w bowel regimen. - Encourage incentive spirometry Acute blood loss and hemodilution related anemia: Likely secondary to perioperative blood loss and IV fluid use. EBL 240 mL, drain output 231 mL. Preoperative hemoglobin of 12.3 and postoperatively 9.5. Monitor H&H daily or as needed. Patient with no palpitation or dizziness, no indication for blood transfusion. (2) Hypertension: Plan: Per cardiology note from July regarding her current BP medication regimen - they recommended pt take Toprol in the AM, amlodipine around noon, and valsartan with her evening Toprol dosing. Adjusted ordered medications here for amlodipine to be given in the afternoon to more closely mimic patient's outpatient regimen. BP fairly under control. (3) Paroxysmal atrial fibrillation: Plan: Pt is on chronic anticoagulation with apixaban for this. AC currently on hold due to surgery. Recommend resuming apixaban as soon as okay with the primary team when bleeding risk deemed minimal. Continue beta-qi (4) Chronic kidney disease, stage 3: Plan: Chronic, stable (5) CAD (coronary artery disease): Plan: Chronic, stable Continue outpatient regimen (6) Hypothyroidism: Plan: Chronic, stable Continue levothyroxine (7) GERD (gastroesophageal reflux disease): Plan: Chronic, stable Continue PPI therapy Plan Dispo: per primary team, resume eliquis once cleared per Sx. Admission and Anticipated Discharge Date Admission Date: December 23, 2023 Subjective Patient was seen and examined at bedside. Patient was sitting up in chair, on room air, reports improvement in RLE radicular symptoms, reports operative site pain under control with pain medication. Reports eating okay denies abdominal pain reports moving gas, denies moving bowel after the surgery. Physical Exam Physical Exam: General: awake, alert, NAD HEENT: no scleral icterus, moist oral mucosa Neck: supple, trachea midline Heart: RRR Lungs: CTA bilaterally on the anterior Abdomen: soft, +BS Extremities: no pedal edema, CJ hose bilateral LE Skin: warm, dry, no jaundice Neurologic: OX3, no confusion or dysarthria, moving all extremities including toes bilaterally Low back with clean dressing without soakage. SEYMOUR drain with serosanguineous output noted. Urinary catheter with light yellow urine collection noted. Results & Data Results & Data Vital Signs (Past 12 Hours) Vital Signs Temp Pulse Resp BP BP Pulse Ox O2 Del Method 12/24/23 11:14 36.4 C L 60 16 109/68 94 Room Air 12/24/23 07:39 36.7 C 59 L 16 105/63 97 Room Air 12/24/23 02:50 36.6 C 63 16 111/71 99 Room Air (2) Hypertension Hypertension type: unspecified Qualified Code(s): I10 - Essential (primary) hypertension (4) Chronic kidney disease, stage 3 Chronic kidney disease stage 3 subtype: unspecified whether 3a or 3b Qualified Code(s): N18.30 - Chronic kidney disease, stage 3 unspecified (5) CAD (coronary artery disease) Coronary Disease-Associated Artery/Lesion type: [place] artery [place] vs. transplanted heart: [place] heart Associated angina: without angina Qualified Code(s): I25.10 - Atherosclerotic heart disease of [place] coronary artery without angina pectoris (6) Hypothyroidism Hypothyroidism type: unspecified Qualified Code(s): E03.9 - Hypothyroidism, unspecified (7) GERD (gastroesophageal reflux disease) Esophagitis presence: esophagitis presence not specified Qualified Code(s): K21.9 - Gastro-esophageal reflux disease without esophagitis
[2023-12-24] MEDS: ACETAMINOPHEN 500 MG TAB PO PRN (22:09)
--- NOTE | 2023-12-25 10:55 | Orthopedic Progress Note ---
Date of Service December 25, 2023 Assessment & Plan (1) Lumbar disc herniation with radiculopathy: Plan: At this time we will continue physical therapy monitor her SEYMOUR output anticipate discharge home tomorrow. Admission and Anticipated Discharge Date Admission Date: December 23, 2023 Subjective Back pain controlled leg symptoms markedly improved Physical Exam Physical Exam: On exam patient is in the chair at the bedside. She is comfortable. Is good strength testing. Results & Data Vital Signs (Past 12 Hours) Vital Signs Temp Pulse Resp BP Pulse Ox O2 Del Method 12/25/23 08:19 36.6 C 60 18 108/69 96 Room Air 12/25/23 07:29 36.6 C 64 18 113/65 100 Room Air Queries Orthopedic Spine Obesity: Yes
[2023-12-25 12:54] VITALS: TEMP 97.7
--- NOTE | 2023-12-25 16:24 | Hospitalist Progress Note ---
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 Hawk and for whom we have been consulted to assist with post-operative medical management. - Pain control, activity per primary team. C/w bowel regimen. - Encourage incentive spirometry -Clinically much better denies any significant symptoms She has been getting physical therapy and doing well Acute blood loss and hemodilution related anemia: Likely secondary to perioperative blood loss and IV fluid use. EBL 240 mL, drain output 231 mL. Preoperative hemoglobin of 12.3 and postoperatively 9.5. Monitor H&H daily or as needed. Patient with no palpitation or dizziness, no indication for blood transfusion. Hemoglobin is stable at 11.3 will monitor while she is in the hospital (2) Hypertension: Plan: Per cardiology note from July regarding her current BP medication regimen - they recommended pt take Toprol in the AM, amlodipine around noon, and valsartan with her evening Toprol dosing. Adjusted ordered medications here for amlodipine to be given in the afternoon to more closely mimic patient's outpatient regimen. BP fairly under control. Remains on the lower side at 98/50. Will monitor (3) Paroxysmal atrial fibrillation: Plan: Pt is on chronic anticoagulation with apixaban for this. AC currently on hold due to surgery. Recommend resuming apixaban as soon as okay with the primary team when bleeding risk deemed minimal. Continue beta-qi (4) Chronic kidney disease, stage 3: Plan: Chronic, stable (5) CAD (coronary artery disease): Plan: Chronic, stable Continue outpatient regimen (6) Hypothyroidism: Plan: Chronic, stable Continue levothyroxine (7) GERD (gastroesophageal reflux disease): Plan: Chronic, stable Continue PPI therapy Plan Dispo: per primary team, resume eliquis once cleared per Sx. Admission and Anticipated Discharge Date Admission Date: December 23, 2023 Subjective 12/25/2023 The patient was seen and examined in medical floor She is a status post lumbar back surgery and has been doing much better following the procedure Denies any significant symptoms Review of Systems Review of Systems: All systems reviewed and are unremarkable except as noted below Physical Exam Physical Exam: Sitting on a chair without any acute distress Constitutional: well developed and well nourished; not ill appearing Eyes: PERRL, conjunctivae normal, anicteric sclerae ENMT: external ear and nose normal, oropharynx normal Neck: trachea midline, no thyromegaly Respiratory: no respiratory distress Auscultation: lungs clear to auscultation bilaterally Cardiovascular: Rate/Rhythm: regular rate and regular rhythm; not tachycardic Heart Sounds: normal S1 and normal S2; no murmur Extremities: + edema (Trace edema bilaterally) Gastrointestinal (Abdomen): Inspection/Auscultation: normal bowel sounds; abdomen not distended Percussion/Palpation: abdomen soft; abdomen nontender Musculoskeletal: No acute arthritis involving any of the joint Neurologic: normal touch/pain/proprioception and moves all extremities; no f ocal motor deficits Lymphatic: no cervical or axillary lymphadenopathy Results & Data Results & Data Vital Signs (Past 12 Hours) Vital Signs Temp Pulse Resp BP Pulse Ox O2 Del Method 12/25/23 12:52 36.5 C 60 20 98/54 L 93 Room Air 12/25/23 08:19 36.6 C 60 18 108/69 96 Room Air 12/25/23 07:29 36.6 C 64 18 113/65 100 Room Air Medications Administered Current Inpatient Medications Acetaminophen (Acetaminophen 500 Mg Tab) 1,000 mg PO Q8H PRN PRN Reason: MILD Pain Scale 1,2,3 & Pre PT Stop: 01/22/24 14:48 Last Admin: 12/24/23 22:09 Dose: 1,000 mg Al Hydrox/Mg Hydrox/Simethicone (Aluminum/Magnesium Susp 30 Ml Udc) 30 ml PO Q6H PRN PRN Reason: Dyspepsia Stop: 01/22/24 14:48 Amlodipine Besylate (Amlodipine Besylate 5 Mg Tab) 5 mg PO QDD RACHANA Stop: 01/22/24 16:29 Last Admin: 12/24/23 16:30 Dose: 5 mg Artificial Tears (Artificial Tears) 1 drops OP TID [facility] Stop: 01/22/24 15:14 Last Admin: 12/25/23 14:55 Dose: 1 drops Atorvastatin Calcium ([facility]vastatin 10 Mg Tab) [facility]: 01/23/24 08:59 Last Admin: 12/25/23 08:47 Dose: 10 mg Bisacodyl (Bisacodyl 10 Mg Supp) 10 mg KS DAILY PRN PRN Reason: Constipation Stop: 01/22/24 14:48 Cyanocobalamin (Cyanocobalamin (B-12) 500 Mcg Tablet) 500 mcg PO [facility] Stop: 01/23/24 08:59 Last Admin: 12/25/23 08:46 Dose: 500 mcg Diphenhydramine HCl (Diphenhydramine Capsule 25 Mg Cap) 25 mg PO Q6H PRN PRN Reason: Allergic Rhinitis/Insomnia Stop: 01/22/24 14:48 Famotidine (Famotidine 20 Mg Tab) 20 mg PO Q12H PRN PRN Reason: Dyspepsia Stop: 01/22/24 14:48 Fluoxetine HCl (Fluoxetine Hcl 10 Mg Cap) 10 mg PO [facility] Stop: 01/23/24 08:59 Last Admin: 12/25/23 08:45 Dose: 10 mg Gabapentin (Gabapentin 100 Mg Cap) 200 mg PO BID [facility] Stop: 01/22/24 20:59 Last Admin: 12/25/23 08:45 Dose: 200 mg Hydromorphone HCl (Hydromorphone Inj 0.5 Mg/0.5 Ml Syr) 0.5 mg IV Q3H PRN PRN Reason: MODERATE Pain (Scale 4,5,6) & Pre PT Stop: 01/06/24 14:48 Last Admin: 12/24/23 03:03 Dose: 0.5 mg Hydromorphone HCl (Hydromorphone Inj 1 Mg/Ml Syringe) 1 mg IV Q3H PRN PRN Reason: SEVERE Pain (Scale 7,8,9,10) Stop: 01/06/24 14:48 Last Admin: 12/23/23 20:23 Dose: 1 mg Hydroxyzine HCl (Hydroxyzine Hcl 25 Mg Tab) 25 mg PO Q8H PRN PRN Reason: Anxiety Stop: 01/22/24 14:48 Lorazepam 0.5 mg/ Syringe 0.5 mls @ 2 mls/min IV Q8H PRN; Protocol PRN Reason: Sedation/Anxiety Stop: 01/22/24 14:48 Promethazine HCl (Phenergan) 12.5 mg in 50.5 mls @ 202 mls/hr IV Q6H PRN PRN Reason: Nausea And Vomiting Stop: 01/22/24 14:48 Dexamethasone 6 mg/ Syringe 1.5 mls @ 1 mls/min IV DAILY RACHANA Stop: 12/26/23 09:02 Last Admin: 12/25/23 08:41 Dose: 1 mls/min Influenza Virus Vaccine Quadrival (Do Not Administer Flu Vaccine) 1 each N/A PRN PRN PRN Reason: Notification Stop: 01/22/24 14:48 Levothyroxine Sodium (Levothyroxine Sodium 50 Mcg Tablet) 50 mcg PO DAILYBB [facility] Stop: 01/23/24 06:29 Last Admin: 12/25/23 06:18 Dose: 50 mcg Loratadine (Loratadine 10 Mg Tab) 10 mg PO DAILY PRN PRN Reason: Allergy Symptoms Stop: 01/22/24 14:48 Lorazepam (Lorazepam 0.5 Mg Tab) 0.5 mg PO Q8H PRN PRN Reason: Sedation/Anxiety Stop: 01/22/24 14:48 Magnesium Hydroxide (Magnesium Hydroxide Susp 30 Ml Udc) 30 ml PO Q24H PRN PRN Reason: Constipation Stop: 01/22/24 14:48 Meclizine HCl (Meclizine Hcl 25 Mg Tab) 25 mg PO DAILY PRN PRN Reason: Vertigo Stop: 01/22/24 14:48 Metoclopramide HCl (Metoclopramide Hcl Inj 5 Mg/Ml 2 Ml Vial) 10 mg IV Q6H PRN PRN Reason: Nausea &/or Vomiting Stop: 01/22/24 14:48 Metoprolol Tartrate (Metoprolol Tartrate 25 Mg Tab) 25 mg PO BID [facility] Stop: 01/22/24 20:59 Last Admin: 12/25/23 08:46 Dose: 25 mg Miscellaneous (Nurtec: Order Awaiting Action) 1 each N/A QS RACHANA Stop: 01/22/24 15:59 Last Admin: 12/25/23 15:42 Dose: Not Given Multi-Ingredient Cream (Artificial Tears Op Oint 3.5 Gm Tube) 1 appln OP HS RACHANA Stop: 01/22/24 20:59 Last Admin: 12/24/23 22:00 Dose: 1 appln Naloxone HCl (Naloxone Hcl 0.4 Mg/1 Ml Vial/Carp) 0.1 mg IV Q5M PRN PRN Reason: Oversedation/Resp depression Stop: 01/22/24 14:48 Ondansetron HCl (Ondansetron Inj 2 Mg/Ml 2 Ml Vial) 4 mg IV Q6H PRN PRN Reason: Nausea &/or Vomiting Stop: 01/22/24 14:48 Ondansetron HCl (Ondansetron 4 Mg Od Tab) 4 mg PO Q6H PRN PRN Reason: Nausea Stop: 01/22/24 14:48 Oxycodone HCl (Oxycodone Hcl Ir 5 Mg Tab (Immediate Release)) 5 - 10 mg PO Q4H PRN PRN Reason: Pain & Pre PT Stop: 01/06/24 14:48 Last Admin: 12/25/23 06:18 Dose: 10 mg Pantoprazole Sodium (Pantoprazole 40 Mg Tab) 40 mg PO QAM RACHANA Stop: 01/23/24 08:59 Last Admin: 12/25/23 08:46 Dose: 40 mg Pneumococcal Polyvalent Vaccine (Do Not Administer Pneumococcal Vaccine) 1 each N/A PRN PRN PRN Reason: Notification Stop: 01/22/24 14:48 Polyethylene Glycol (Polyethylene (Miralax) 17 Gm Pack) 17 gm PO Q6 RACHANA Stop: 01/23/24 05:59 Last Admin: 12/25/23 12:01 Dose: 17 gm Psyllium Hydrophilic Mucilloid (Psyllium Or Guar Gum Fiber 4gm Packet) 4 gm PO DAILY RACHANA Stop: 01/23/24 08:59 Last Admin: 12/25/23 08:45 Dose: 4 gm Senna/Docusate Sodium (Docusate Sodium/Senna 50/8.6mg Tab) 2 tab PO HS RACHANA Stop: 01/22/24 20:59 Last Admin: 12/24/23 22:05 Dose: 2 tab Sodium Biphosphate/Sodium Phosphate (Sod Phosphate/Sod Biphosphate Enema 132 Ml Btl) 132 ml KS ONE PRN PRN Reason: Constipation Stop: 01/22/24 14:48 Tizanidine HCl (Tizanidine Hcl 4 Mg Tablet) 2 mg PO BID RACHANA Stop: 01/22/24 20:59 Last Admin: 12/25/23 08:44 Dose: 2 mg Topiramate (Topiramate 100 Mg Tab) 100 mg PO BID RACHANA Stop: 01/22/24 20:59 Last Admin: 12/25/23 08:44 Dose: 100 mg Tramadol HCl (Tramadol Hcl 50 Mg Tablet) 50 - 100 mg PO Q4H PRN PRN Reason: Moderate-Severe pain & Pre PT Stop: 01/22/24 14:48 Last Admin: 12/24/23 05:46 Dose: 50 mg Valsartan (Valsartan 80 Mg Tab) 40 mg PO QPM RACHANA Stop: 01/22/24 20:59 Last Admin: 12/24/23 22:04 Dose: 40 mg Vitamin D (Cholecalciferol 25 Mcg (1000 Units) Tab) 25 mcg PO QAM RACHANA Stop: 01/23/24 08:59 Last Admin: 12/25/23 08:46 Dose: 25 mcg (2) Hypertension Hypertension type: unspecified Qualified Code(s): I10 - Essential (primary) hypertension (4) Chronic kidney disease, stage 3 Chronic kidney disease stage 3 subtype: unspecified whether 3a or 3b Qualified Code(s): N18.30 - Chronic kidney disease, stage 3 unspecified (5) CAD (coronary artery disease) Coronary Disease-Associated Artery/Lesion type: [place] artery [place] vs. transplanted heart: [place] heart Associated angina: without angina Qualified Code(s): I25.10 - Atherosclerotic heart disease of [place] coronary artery without angina pectoris (6) Hypothyroidism Hypothyroidism type: unspecified Qualified Code(s): E03.9 - Hypothyroidism, unspecified (7) GERD (gastroesophageal reflux disease) Esophagitis presence: esophagitis presence not specified Qualified Code(s): K21.9 - Gastro-esophageal reflux disease without esophagitis
[2023-12-25] MEDS: hydrOXYzine HCl 25 MG TAB PO PRN (23:33)
[2023-12-26 06:01] LABS: Basophils # (auto) 0.01 K/uL (0.00-0.20); Basophils % (auto) 0.1 %; Eosinophils # (auto) 0.01 K/uL (0.00-0.50); Eosinophils % (auto) 0.1 %; Hematocrit (blood only) 28.1 % (37.0-47.0); Immature Granulocytes # (auto) 0.04 K/uL (0.01-0.20); Immature Granulocytes % (auto) 0.5 %; Lymphocytes # (auto) 0.95 K/uL (1.20-3.40); Lymphocytes % (auto) 11.4 %; Mean Corpuscular Hemoglobin 30.1 pg (25.0-34.0); Monocytes # (auto) 0.88 K/uL (0.11-0.59); Monocytes % (auto) 10.6 %; Neutrophils # (auto) 6.41 K/uL (1.40-6.50); Neutrophils % (auto) 77.3 %; Platelet Count 143 K/uL (130-400); RDW Coefficient of Variation 13.8 % (11.5-14.5); RDW Standard Deviation 47.4 fL (36.4-46.3); Red Blood Count 2.99 M/uL (4.20-5.40)
[2023-12-26 06:18] LABS: BUN Creatinine Ratio 25.6 (10-20); Calcium 8.2 mg/dl (8.6-10.3); Creatinine Clr Calc Pharmacy 38.7 ml/min; Est GFR (African American) 45.9 ml/min; Est GFR (Non-African American) 39.6 ml/min; Potassium 4.1 mmol/L (3.5-5.1)
[2023-12-26 07:11] VITALS: BP 105/65; PULSE 60; RESP 16; O2SAT 95
--- NOTE | 2023-12-26 08:23 | Discharge Summary ---
Date of Service December 26, 2023 Admission HPI Per Admitting Provider This is a 78-year-old female known to us the presents chronic persistent back and leg pain after failing since course of nonoperative care is here for surgical intervention. Principal Diagnosis Lumbar discrimination with radiculopathy Discharge Data Allergies Allergy/AdvReac Type Severity Reaction Status Date / Time adhesive Allergy Mild Rash Verified 12/23/23 09:02 clemastine [From Tavist] Allergy Mild Rash Verified 12/23/23 09:02 piroxicam [From Feldene] Allergy Mild Rash Verified 12/23/23 09:02 pseudoephedrine [From Tavist] Allergy Mild Rash Verified 12/23/23 09:02 Consultations 12/23/23 14:49 Consult Hospitalist Routine Procedures Performed Operation Date: 12/23/23 10:05 Actual Procedures p L2-L3 Decompression and Fusion, Connect to Previous Hardware, with Spinal Cord Monitoring(Not Applicable) - Anthony Hawk DO Ordered Studies 12/23/23 10:05 FL lumbar spine 2-3V Routine Hospital Course (1) Lumbar disc herniation with radiculopathy: Patient underwent lumbar decompression fusion tolerated this well was taken to orthopedic for postoperative. Postop release he progressed well. Leg symptoms improved. SEYMOUR drain decreased appropriately. Excellent strength testing. Total Time Total Time Spent Total Time Spent (In Minutes): 20 minutes Discharge Plan Discharge Items Patient Disposition: Home - Self-Care Reason For Visit: Lumbar Radiculopathy, Spondylolisthesis Lumbar Reg Discharge Diagnosis: Lumbar spinal stenosis with neurogenic claudication Activity: As commented below Non-emergency contact: Primary Care Provider Call non-emergency contact if: you have any medication questions Follow-up/Referrals: Mumtaz Cedeno MD [Primary Care Provider] - Diet: Regular Addtl Attending Provider Instructions: ACTIVITY RECOMMENDATIONS: SELF CARE INSTRUCTIONS AFTER THORACIC/LUMBAR FUSIONS 1. You may walk to your tolerance. It is good exercise for your legs and back. Expect some back and intermittent leg aches and pains. 2. You may perform "counter-top" level activities (make a sandwich, kathy with a project, etc.). 3. No bending or lifting of more than 10 pounds or back twisting of any nature (roll like a log when turning in bed). 4. You may ride in a car for 20-30 minutes at a time. No driving until after your first visit with your doctor. 5. Frequent changes of position and restricting sitting to 30 minutes at a time will help limit the amount of back spasms and stiffness you may experience. 6. You may discontinue the use of ambulatory aids (cane, crutches, etc.) once your strength and confidence allow. 7. You may paint line supervisor the shower and let water strike your incision when you arrive home at least once daily. Do not take a tub bath, sit in a hot tub or go into a swimming pool until after your first recheck in the office. SPECIAL CARE INSTRUCTIONS: VERY IMPORTANT TO READ AND REVIEW A. Your surgical incision has been closed with a cosmetic suture under the skin that will dissolve in about 6 weeks. In 14 days, you can use a pair of clean scissors and cut the suture that is left outside of the skin at the ends of your incision. 1. The small skin tapes can be removed 7 days after surgery if they have not fallen off by that point. 2. You may keep the wound open to air as much as possible to promote healing after post-op day number 5 unless told otherwise by your doctor. 3. If you think the wound looks like it is becoming infected (redness or worsening drainage) and/or you are experiencing fever, chill or worsening back pain and muscle spasms, contact the office so that we may evaluate you as soon as possible. B. Complications are uncommon, but please contact us if you have any signs or symptoms of: 1. wound infection (fever higher than 102.5 degrees F, redness, separation of wound, drainage, or increasing pain from the incision) 2. blood clots in legs (pain, swelling, redness and warmth in legs) 3. urinary tract infection (fever higher than 102.5 degrees F, burning upon urination or increased frequency of urination) 4. nerve problems (inability to walk on your toes or heels, numbness, loss of bowel or bladder control) 5. any other symptoms that concern you C. Please call the office at if you have any concerns or questions about your operation or recovery. D. No smoking! Smoking drastically decreases the chance of a solid fusion. E. Do not take any anti-inflammatory medications (Indocin, Advil, Motrin, Aspirin, Naprosyn, etc.) as these may inhibit the chance of a solid fusion. Tylenol is okay to take for pain. MANAGING PAIN AFTER SPINAL SURGERY 1. Narcotic medication is intended for short-term use and will be provided for surgical pain. Surgical pain usually lasts for a period of 4-6 weeks. Narcotic medication includes Percocet, Vicodin, Darvocet, Tylenol #3 or Lortab. 2. Longer-term pain is more appropriately treated with non-narcotic medication such as Tylenol ES. 3. Muscle spasm is not appropriately treated with narcotics. Muscle relaxers such as Soma, Flexeril or Skelaxin can be used along with Tylenol ES. 4. Remember that we all live with some "aches and pains". This is not unusual or uncommon after an injury or as we get older. a. Back pain is expected and may include muscle spasms for 4 to 6 weeks after surgery. The pain should gradually improve. If the pain worsens for no apparent reason, please contact the office. b. Intermittent leg pain may also be experienced and should not be concerned about unless it worsens for no apparent reason. If so, please contact the office. 5. We will provide appropriate medication within the normal guidelines of their prescribed use. We will also be very cautious and aware of potential abuse and extended duration of patients' medication needs. a. Pain medications are for your comfort and to assist with sleep and rest so that the tissue can heal. They are not provided in order to return to normal activity and should not be used through the day. To do so or worsening pain at night can result from ongoing tissue damage and development of tolerance to the prescribed medicine. 6. Please allow 2-3 days to process refills. Prescriptions will not be mailed but must be picked up at the office. FOLLOW UP VISIT: Keep your scheduled follow-up appointment. Any questions, please call the office at . Pending Studies at Discharge: No Stand-Alone Forms: My [employer], Smoking Cessation Medications and DC Order Prescriptions: New tramadol 50 mg tablet 50 mg PO Q6H PRN (Reason: pain, moderate) Qty: 30 0RF oxycodone 5 mg tablet 5 mg PO Q6H PRN (Reason: pain) Qty: 30 0RF Continued cholecalciferol (vitamin D3) [Vitamin D3] 25 mcg (1,000 unit) Capsule 25 mcg PO QAM sodium chloride [Selina 128] 5 % Ointment 0.25 inch OPHTHALMIC (EYE) HS pantoprazole 40 mg Tablet,Delayed Release (Dr/Ec) 40 mg PO QAM levothyroxine [Synthroid] 125 mcg Tablet 50 mcg PO QAM metoprolol tartrate 25 mg Tablet 25 mg PO BID Sooth Eye Drops 1 drp ophthalmic (eye) TID Metamucil 3.4 gram/5.4 gram Powder 1 tbsp PO QAM atorvastatin 10 mg Tablet 10 mg PO QAM fluoxetine 10 mg Tablet 10 mg PO QAM polyethylene glycol 3350 [Miralax] 17 gram powder in packet 17 g PO DAILY PRN (Reason: constipation) Qty: 5 0RF tizanidine 2 mg Tablet 2 mg PO BID Patient Comments: only taking at bedtime albuterol sulfate 2.5 mg /3 mL (0.083 %) solution for nebulization 2.5 mg inhalation UD PRN (Reason: SOB) amlodipine 5 mg Tablet 5 mg PO QPM Patient Comments: noon cyanocobalamin (vitamin B-12) [Vitamin B-12] 500 mcg Tablet 500 mcg PO QAM meclizine 25 mg Tablet 25 mg PO DAILY PRN (Reason: Vertigo) gabapentin 100 mg Capsule 200 mg PO BID topiramate 100 mg Tablet 100 mg PO BID loratadine 10 mg Tablet 10 mg PO DAILY PRN (Reason: Allergy Symptoms) valsartan 40 mg Tablet 40 mg PO QPM Patient Comments: at 1700 apixaban 5 mg Tablet 5 mg PO BID Metamucil 3.4 gram/5.4 gram Powder 1 tbsp PO DAILY Rx Instructions: mix into at least 8 oz of water or juice before administering Emgality Pen 120 mg/mL Pen Injector 120 mg SUBCUT Q30D Nurtec ODT 75 mg Tablet,Disintegrating 75 mg PO Q2D Botox 1 dose SC UD Rx Instructions: every 4 months Discharge Orders: Discharge Order (Routine); Ordered 12/26/23 Ordered By: Anthony Hawk Admission Data Admit Date/Time: 12/23/23 12:58 Attending Provider: Anthony Hawk Admit Provider: Anthony Hawk Primary Care Provider: Mumtaz Cedeno I. Other Providers: Jak Koo
--- NOTE | 2023-12-26 13:02 | Hospitalist Progress Note ---
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 Hawk and for whom we have been consulted to assist with post-operative medical management. - Pain control, activity per primary team. C/w bowel regimen. - Encourage incentive spirometry -Clinically much better denies any significant symptoms She has been getting physical therapy and doing well -Remains medically stable to be discharged Acute blood loss and hemodilution related anemia: Likely secondary to perioperative blood loss and IV fluid use. EBL 240 mL, drain output 231 mL. Preoperative hemoglobin of 12.3 and postoperatively 9.5. Monitor H&H daily or as needed. Patient with no palpitation or dizziness, no indication for blood transfusion. Hemoglobin is stable at 11.3 will monitor while she is in the hospital Hemoglobin remained stable at 9.0 (2) Hypertension: Plan: Per cardiology note from July regarding her current BP medication regimen - they recommended pt take Toprol in the AM, amlodipine around noon, and valsartan with her evening Toprol dosing. Adjusted ordered medications here for amlodipine to be given in the afternoon to more closely mimic patient's outpatient regimen. BP fairly under control. Remains on the lower side at 98/50. Will monitor-blood pressure is improved at 105/65 (3) Paroxysmal atrial fibrillation: Plan: Pt is on chronic anticoagulation with apixaban for this. AC currently on hold due to surgery. Recommend resuming apixaban as soon as okay with the primary team when bleeding risk deemed minimal. Continue beta-qi (4) Chronic kidney disease, stage 3: Plan: Chronic, stable Creatinine slightly better at 1.29 as of 12/26/2023 (5) CAD (coronary artery disease): Plan: Chronic, stable Continue outpatient regimen (6) Hypothyroidism: Plan: Chronic, stable Continue levothyroxine (7) GERD (gastroesophageal reflux disease): Plan: Chronic, stable Continue PPI therapy Plan Dispo: per primary team, resume eliquis once cleared per Sx. Medically stable to be discharged Admission and Anticipated Discharge Date Admission Date: December 23, 2023 Subjective 12/25/2023 The patient was seen and examined in medical floor She is a status post lumbar back surgery and has been doing much better following the procedure Denies any significant symptoms 12/26/2023 The patient was seen and examined in medical floor She has been feeling much better with decreasing back pain Has been having physical therapy without any problem Denies any significant symptoms and she will be discharged home this afternoon Review of Systems Review of Systems: All systems reviewed and are unremarkable except as noted below Physical Exam Physical Exam: Sitting on a chair without any acute distress Constitutional: well developed and well nourished; not ill appearing Eyes: PERRL, conjunctivae normal, anicteric sclerae ENMT: external ear and nose normal, oropharynx normal Neck: trachea midline, no thyromegaly Respiratory: no respiratory distress Auscultation: lungs clear to auscultation bilaterally Cardiovascular: Rate/Rhythm: regular rate and regular rhythm; not tachycardic Heart Sounds: normal S1 and normal S2; no murmur Extremities: + edema (Trace edema bilaterally) Gastrointestinal (Abdomen): Inspection/Auscultation: normal bowel sounds; abdomen not distended Percussion/Palpation: abdomen soft; abdomen nontender Neurologic: normal touch/pain/proprioception and moves all extremities; no focal motor deficits Lymphatic: no cervical or axillary lymphadenopathy Results & Data Results & Data Vital Signs (Past 12 Hours) Vital Signs Temp Pulse Resp BP Pulse Ox O2 Del Method 12/26/23 07:10 36.5 C 60 16 105/65 95 Room Air Laboratory Results Short CBC 12/26/23 Range/Units 05:18 WBC 8.30 (4.8-10.8) K/ul Hgb 9.0 L (12.0-16.0) g/dl Hct 28.1 L (37.0-47.0) % Plt Count 143 (130-400) K/uL BMP 12/26/23 05:18 Sodium 140 Potassium 4.1 Chloride 110 H Carbon Dioxide 26 BUN 33 H Creatinine 1.29 H Glucose 111 H Calcium 8.2 L Medications Administered Current Inpatient Medications Acetaminophen (Acetaminophen 500 Mg Tab) 1,000 mg PO Q8H PRN PRN Reason: MILD Pain Scale 1,2,3 & Pre PT Stop: 01/22/24 14:48 Last Admin: 12/24/23 22:09 Dose: 1,000 mg Al Hydrox/Mg Hydrox/Simethicone (Aluminum/Magnesium Susp 30 Ml Udc) 30 ml PO Q6H PRN PRN Reason: Dyspepsia Stop: 01/22/24 14:48 Amlodipine Besylate (Amlodipine Besylate 5 Mg Tab) 5 mg PO QDD [facility] Stop: 01/22/24 16:29 Last Admin: 12/25/23 16:53 Dose: 5 mg Artificial Tears (Artificial Tears) 1 drops OP TID [facility] Stop: 01/22/24 15:14 Last Admin: 12/26/23 08:33 Dose: 1 drops Atorvastatin Calcium (Atorvastatin 10 Mg Tab) [facility] [place]: 01/23/24 08:59 Last Admin: 12/26/23 08:38 Dose: 10 mg Bisacodyl (Bisacodyl 10 Mg Supp) 10 mg [place] DAILY PRN PRN Reason: Constipation Stop: 01/22/24 14:48 Cyanocobalamin (Cyanocobalamin (B-12) 500 Mcg Tablet) 500 mcg PO QAM [facility] Stop: 01/23/24 08:59 Last Admin: 12/26/23 08:37 Dose: 500 mcg Diphenhydramine HCl (Diphenhydramine Capsule 25 Mg Cap) 25 mg PO Q6H PRN PRN Reason: Allergic Rhinitis/Insomnia Stop: 01/22/24 14:48 Famotidine (Famotidine 20 Mg Tab) 20 mg PO Q12H PRN PRN Reason: Dyspepsia Stop: 01/22/24 14:48 Fluoxetine HCl (Fluoxetine Hcl 10 Mg Cap) 10 mg PO QAM [facility] Stop: 01/23/24 08:59 Last Admin: 12/26/23 08:37 Dose: 10 mg Gabapentin (Gabapentin 100 Mg Cap) 200 mg PO BID [facility] Stop: 01/22/24 20:59 Last Admin: 12/26/23 08:36 Dose: 200 mg Hydromorphone HCl (Hydromorphone Inj 0.5 Mg/0.5 Ml Syr) 0.5 mg IV Q3H PRN PRN Reason: MODERATE Pain (Scale 4,5,6) & Pre PT Stop: 01/06/24 14:48 Last Admin: 12/24/23 03:03 Dose: 0.5 mg Hydromorphone HCl (Hydromorphone Inj 1 Mg/Ml Syringe) 1 mg IV Q3H PRN PRN Reason: SEVERE Pain (Scale 7,8,9,10) Stop: 01/06/24 14:48 Last Admin: 12/23/23 20:23 Dose: 1 mg Hydroxyzine HCl (Hydroxyzine Hcl 25 Mg Tab) 25 mg PO Q8H PRN PRN Reason: Anxiety Stop: 01/22/24 14:48 Last Admin: 12/25/23 23:33 Dose: 25 mg Lorazepam 0.5 mg/ Syringe 0.5 mls @ 2 mls/min IV Q8H PRN; Protocol PRN Reason: Sedation/Anxiety Stop: 01/22/24 14:48 Promethazine HCl (Phenergan) 12.5 mg in 50.5 mls @ 202 mls/hr IV Q6H PRN PRN Reason: Nausea And Vomiting Stop: 01/22/24 14:48 Influenza Virus Vaccine Quadrival (Do Not Administer Flu Vaccine) 1 each N/A PRN PRN PRN Reason: Notification Stop: 01/22/24 14:48 Levothyroxine Sodium (Levothyroxine Sodium 50 Mcg Tablet) 50 mcg PO DAILYBB RACHANA Stop: 01/23/24 06:29 Last Admin: 12/26/23 05:34 Dose: 50 mcg Loratadine (Loratadine 10 Mg Tab) 10 mg PO DAILY PRN PRN Reason: Allergy Symptoms Stop: 01/22/24 14:48 Lorazepam (Lorazepam 0.5 Mg Tab) 0.5 mg PO Q8H PRN PRN Reason: Sedation/Anxiety Stop: 01/22/24 14:48 Magnesium Hydroxide (Magnesium Hydroxide Susp 30 Ml Udc) 30 ml PO Q24H PRN PRN Reason: Constipation Stop: 01/22/24 14:48 Meclizine HCl (Meclizine Hcl 25 Mg Tab) 25 mg PO DAILY PRN PRN Reason: Vertigo Stop: 01/22/24 14:48 Metoclopramide HCl (Metoclopramide Hcl Inj 5 Mg/Ml 2 Ml Vial) 10 mg IV Q6H PRN PRN Reason: Nausea &/or Vomiting Stop: 01/22/24 14:48 Metoprolol Tartrate (Metoprolol Tartrate 25 Mg Tab) 25 mg PO BID [facility] Stop: 01/22/24 20:59 Last Admin: 12/26/23 08:37 Dose: Not Given Miscellaneous (Nurtec: Order Awaiting Action) 1 each N/A QS [facility] Stop: 01/22/24 15:59 Last Admin: 12/26/23 08:00 Dose: Not Given Multi-Ingredient Cream (Artificial Tears Op Oint 3.5 Gm Tube) 1 appln OP HS [facility] Stop: 01/22/24 20:59 Last Admin: 12/25/23 20:28 Dose: 1 appln Naloxone HCl (Naloxone Hcl 0.4 Mg/1 Ml Vial/Carp) 0.1 mg IV Q5M PRN PRN Reason: Oversedation/Resp depression Stop: 01/22/24 14:48 Ondansetron HCl (Ondansetron Inj 2 Mg/Ml 2 Ml Vial) 4 mg IV Q6H PRN PRN Reason: Nausea &/or Vomiting Stop: 01/22/24 14:48 Ondansetron HCl (Ondansetron 4 Mg Od Tab) 4 mg PO Q6H PRN PRN Reason: Nausea Stop: 01/22/24 14:48 Oxycodone HCl (Oxycodone Hcl Ir 5 Mg Tab (Immediate Release)) 5 - 10 mg PO Q4H PRN PRN Reason: Pain & Pre PT Stop: 01/06/24 14:48 Last Admin: 12/25/23 23:34 Dose: 10 mg Pantoprazole Sodium (Pantoprazole 40 Mg Tab) 40 mg PO QAM [facility] Stop: 01/23/24 08:59 Last Admin: 12/26/23 08:38 Dose: 40 mg Pneumococcal Polyvalent Vaccine (Do Not Administer Pneumococcal Vaccine) 1 each N/A PRN PRN PRN Reason: Notification Stop: 01/22/24 14:48 Psyllium Hydrophilic Mucilloid (Psyllium Or Guar Gum Fiber 4gm Packet) 4 gm PO DAILY [facility] Stop: 01/23/24 08:59 Last Admin: 12/26/23 07:58 Dose: 4 gm Senna/Docusate Sodium (Docusate Sodium/Senna 50/8.6mg Tab) 2 tab PO HS [facility] Stop: 01/22/24 20:59 Last Admin: 12/25/23 20:28 Dose: Not Given Sodium Biphosphate/Sodium Phosphate (Sod Phosphate/Sod Biphosphate Enema 132 Ml Btl) 132 ml [place] ONE PRN PRN Reason: Constipation Stop: 01/22/24 14:48 Tizanidine HCl (Tizanidine Hcl 4 Mg Tablet) 2 mg PO BID RACHANA Stop: 01/22/24 20:59 Last Admin: 12/26/23 08:38 Dose: 2 mg Topiramate (Topiramate 100 Mg Tab) 100 mg PO BID RACHANA Stop: 01/22/24 20:59 Last Admin: 12/26/23 08:36 Dose: 100 mg Tramadol HCl (Tramadol Hcl 50 Mg Tablet) 50 - 100 mg PO Q4H PRN PRN Reason: Moderate-Severe pain & Pre PT Stop: 01/22/24 14:48 Last Admin: 12/24/23 05:46 Dose: 50 mg Valsartan (Valsartan 80 Mg Tab) 40 mg PO QPM RACHANA Stop: 01/22/24 20:59 Last Admin: 12/25/23 20:26 Dose: 40 mg Vitamin D (Cholecalciferol 25 Mcg (1000 Units) Tab) 25 mcg PO QAM RACHANA Stop: 01/23/24 08:59 Last Admin: 12/26/23 08:37 Dose: 25 mcg (2) Hypertension Hypertension type: unspecified Qualified Code(s): I10 - Essential (primary) hypertension (4) Chronic kidney disease, stage 3 Chronic kidney disease stage 3 subtype: unspecified whether 3a or 3b Qualified Code(s): N18.30 - Chronic kidney disease, stage 3 unspecified (5) CAD (coronary artery disease) Coronary Disease-Associated Artery/Lesion type: [place] artery [place] vs. transplanted heart: [place] heart Associated angina: without angina Qualified Code(s): I25.10 - Atherosclerotic heart disease of [place] coronary artery without angina pectoris (6) Hypothyroidism Hypothyroidism type: unspecified Qualified Code(s): E03.9 - Hypothyroidism, unspecified (7) GERD (gastroesophageal reflux disease) Esophagitis presence: esophagitis presence not specified Qualified Code(s): K21.9 - Gastro-esophageal reflux disease without esophagitis
== END 2023-12-26 16:14 | disposition home or self-care (01) | DRG 454 ==
LOC: ASU 08:19 → 3E 12:58
DX: D62 Acute posthemorrhagic anemia; Z95.0 Presence of cardiac pacemaker; Z98.1 Arthrodesis status; I12.9 Hypertensive chronic kidney disease with stage 1 through stage 4 chronic kidney disease, or unspecified chronic kidney disease; I48.0 Paroxysmal atrial fibrillation; Z86.14 Personal history of Methicillin resistant Staphylococcus aureus infection; N18.31 Chronic kidney disease, stage 3a; Z79.01 Long term (current) use of anticoagulants; C83.30 Diffuse large B-cell lymphoma, unspecified site; M51.16 Intervertebral disc disorders with radiculopathy, lumbar region; Z79.890 Hormone replacement therapy; E03.9 Hypothyroidism, unspecified; E78.5 Hyperlipidemia, unspecified; I42.7 Cardiomyopathy due to drug and external agent